=== PATIENT | female | born 1960 | race Caucasian/White ===

== ENCOUNTER → 2016-11-07 | Outpatient (CLI) | payer OTHER ==
[~2016-11-07] MED LIST: ACHD5005 PO; AMIT25TA9 PO; BACL10TA PO; CHLS4PK PO; CIPR-225 PO; CIPR500T78 PO; CLIN300C3 PO; CPR500T PO; CRS350T PO; CYCL10TA9 PO; DICL1TAB27 PO; DICY10CA26 PO; FRSM40T PO; GBPN300C PO; GLPZ10TCR PO; HYDR-2890 PO; HYDR-2997 PO; HYDR-34 PO; HYDR-3583 PO; HYDR-3812 PO; HYDR-3820 PO; HYDR-623 PO; HYDR-707 PO; HYDR118S10 PO; HYDR1CAP2 PO; HYDR1TAB PO; HYOS0.1217 PO; INSU100I5 SQ; LEVO250T33 PO; LEVO500T2 PO; LEVO500T69 PO; LEVO750T39 PO; LISI20TA2 PO; MEDR2.5T PO; METR500T PO; MUPI15CR11 TP; NAPR-243 PO; NITR-65 PO; ORPH100T PO; PHEN-639 PO; PHEN200T27 PO; PNT40TEC PO; POTA10CA16 PO; PROVERA; SCR1T1 PO; TRM50T PO; [UNRECOGNIZED DRUG - OTHER]
[2016-11-07 07:20] LABS: MEAN PLATELET VOLUME 9.4 FL (7.4-10.4); RED BLOOD COUNT 4.9 10^6/uL (4.35-5.85); RED CELL DISTRIBUTION WIDTH 13.4 % (10.0-14.5); WHITE BLOOD COUNT 9.7 10^3/uL (4.3-11.0)
[2016-11-07 07:48] LABS: ALANINE AMINOTRANSFERASE 14 U/L (0-55); ALBUMIN 3.9 G/DL (3.2-4.5); ANION GAP 10 MMOL/L (5-14); ASPARTATE AMINO TRANSFERASE 13 U/L (5-34); BILIRUBIN,TOTAL 0.6 MG/DL (0.1-1.0); BLOOD UREA NITROGEN 23 MG/DL (7-18); BUN/CREATININE RATIO 27; CALCIUM 8.9 MG/DL (8.5-10.1); CARBON DIOXIDE 20 MMOL/L (21-32); CHLORIDE 104 MMOL/L (98-107); CHOLESTEROL 204 MG/DL (< 200); CREATININE SERUM 0.84 MG/DL (0.60-1.30); DIRECT LDL 112 MG/DL (1-129); GFR ESTIMATED > 60; GLUCOSE 143 MG/DL (70-105); POTASSIUM 3.9 MMOL/L (3.6-5.0); SODIUM 134 MMOL/L (135-145); TOTAL PROTEIN 6.9 G/DL (6.4-8.2); TRIGLYCERIDES 341 MG/DL (<150); VLDL CHOLESTEROL 68 MG/DL (5-40)
[2016-11-07 07:53] LABS: TROPONIN I < 0.30 NG/ML (<0.30)
== END ==
LOC: LAB 07:04
PROVIDERS: ATTEND Family Medicine
DX: Z00.00 Encounter for general adult medical examination without abnormal findings (principal); M25.512 Pain in left shoulder
CPT/HCPCS: 36415; 80053; 80061; 83036; 84484; 85027

== ENCOUNTER 2016-11-17 11:14 | Observation (INO) | payer OTHER ==
[~2016-11-17] VITALS: Ht 160 cm; Wt 111.1 kg
[2016-11-17] MEDS ORDERED: ASPIRIN 81 MG CHEW (CHILDREN'S ASA) ONE (11:30)
[2016-11-17] MEDS ORDERED: ASPI-999 PO (11:34)
[2016-11-17 12:11] LABS: BASOPHILS # (AUTO) 0.1 10^3/uL (0.0-0.1); BASOPHILS % (AUTO) 1 % (0-10); EOSINOPHILS # (AUTO) 0.2 10^3/uL (0.0-0.3); EOSINOPHILS % (AUTO) 2 % (0-10); LYMPHOCYTES # (AUTO) 3.2 X 10^3 (1.0-4.0); LYMPHOCYTES % (AUTO) 21 % (12-44); MEAN CORPUSCULAR HEMOGLOBIN 30 PG (25-34); MEAN CORPUSCULAR HGB CONC 35 G/DL (32-36); MEAN CORPUSCULAR VOLUME 86 FL (80-99); MEAN PLATELET VOLUME 9.6 FL (7.4-10.4); MONOCYTES # (AUTO) 0.6 X 10^3 (0.0-1.0); MONOCYTES % (AUTO) 4 % (0-12); NEUTROPHILS # (AUTO) 10.7 X 10^3 (1.8-7.8); NEUTROPHILS % (AUTO) 73 % (42-75); PLATELET COUNT 369 10^3/uL (130-400); RED BLOOD COUNT 5.53 10^6/uL (4.35-5.85); RED CELL DISTRIBUTION WIDTH 13.7 % (10.0-14.5); WHITE BLOOD COUNT 14.8 10^3/uL (4.3-11.0)
[2016-11-17] MEDS ORDERED: ASPIRIN 81 MG CHEW (CHILDREN'S ASA) PO ONE (12:15)
--- NOTE | 2016-11-17 12:15 | ED Chest Pain ---
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 Pt also c/o SOA and nausea that started when pain got worse today. Nursing Sepsis Screen: No Definite Risk Source: patient, family Exam Limitations: no limitations History of Present Illness Time seen by provider: 12:12 Initial Comments This 56-year-old white female presents with a two-week history of pressure type chest pain that became much worse today precipitating her presentation to the emergency department. The patient's primary care physician, Dr. Sanderson, has been following the patient for this chest pain and has had unremarkable laboratory evaluation done within the last few days. The patient has had similar chest pain in 2014 in [place] for which she was evaluated and hospitalized. There is no definitive diagnosis forthcoming from that admission. The patient has experienced associated nausea and diarrhea today. Past medical history of significance includes diabetes and hypertension. The patient is a smoker. The patient states that the pain as moderately severe, sharp in nature, and located in the left anterior chest and radiates in the left neck. Allergies and Home Medications Allergies Coded Allergies: tetracycline (Verified Allergy, Intermediate, 01/16/15) Penicillins (Verified Allergy, Unknown, 01/16/15) cefaclor (Verified Allergy, Unknown, 01/16/15) sulfamethoxazole (Verified Allergy, Unknown, 01/16/15) trimethoprim (Verified Allergy, Unknown, 01/16/15) cyclobenzaprine HCl (Verified Adverse Reaction, Unknown, 01/16/15) causes pt to be very agitated Home Medications Aspirin 81 Mg Tab.chew, 81 MG PO DAILY, (Reported) Insulin Determir 100 Unit/1 Ml Insuln.pen, 42 UNIT SQ Q12H, Ref 0 (Reported) Lisinopril 20 Mg Tablet, 40 MG PO daily, (Reported) Tramadol Hcl 50 Mg Tab, 50 MG PO TID, (Reported) Review of Systems Constitutional: No chills EENTM: No Blurred Vision Respiratory: Denies Cough Cardiovascular: See HPI, Chest Pain, Denies Palpitations, Denies Syncope Gastrointestinal: Denies Abdominal Pain, Diarrhea, Nausea Genitourinary: Denies Burning Musculoskeletal: No back pain Skin: No change in color, No rash Psychiatric/Neurological: No Symptoms Reported Endocrine: No Symptoms Reported Hematologic/Lymphatic: No Symptoms Reported Past Uzrrief-Vxlzpm-Ofdyee Hx Patient Social History Alcohol Use: Denies Use Recreational Drug Use: No Smoking Status: Current Everyday Smoker Type Used: Cigarettes Former Smoker/When Quit: Jan 02, 2013 Recent Foreign Travel: No Contact w/Someone Who Travel: No Recent Infectious Disease Expo: No Recent Hopitalizations: No Immunizations Up To Date Tetanus Booster (TDap): Unknown Seasonal Allergies Seasonal Allergies: No Surgeries HX Surgeries: Yes (EGD/COLONOSCOPY, UMBILICAL HERNIA, CARPAL TUNNEL) Surgeries: Abdominal, Section, Gallbladder, Orthopedic Respiratory Hx Respiratory Disorders: No Cardiovascular Hx Cardiac Disorders: Yes Cardiac Disorders: High Cholesterol, Hypertension Neurological Hx Neurological Disorders: Yes Neurological Disorders: Neuropathy Reproductive System Hx Reproductive Disorders: No PHARMACY ANCILLARY History: Menopausal Genitourinary Hx Genitourinary Disorders: Yes Genitourinary Disorders: Kidney Stones, UTI-Chronic Gastrointestinal Hx Gastrointestinal Disorders: Yes (CHRONIC ABDOMINAL PAIN) Gastrointestinal Disorders: Gastroesophageal Reflux, Gastrointestinal Bleed, Pancreatitis, Ulcer Musculoskeletal Hx Musculoskeletal Disorders: Yes (CHRONIC GENERALIZED PAIN, FREQUENT FALLS) Musculoskeletal Disorders: Degenerate Disk Disease, Arthritis, Chronic Back Pain Endocrine Hx Endocrine Disorders: Yes Endocrine Disorders: Diabetes, Insulin dep HEENT HX ENT Disorders: No Cancer Hx Cancer: No Psychosocial Hx Psychiatric Problems: Yes Behavioral Health Disorders: Depression Integumentary HX Skin/Integumentary Disorder: Yes (DIABETIC FOOT ULCERS/CELLULITIS) Blood Transfusions Hx Blood Disorders: No Adverse Reaction to a Blood Tr: No Reviewed Nursing Assessment Reviewed/Agree w Nursing PMH: Yes Family Medical History Significant Family History: No Pertinent Family Hx Family Medial History: Cardiovascular disease 19 FATHER Colon cancer 19 FATHER Gastroenteritis Kidney disease G8 SISTER (kidney cancer) Neoplasm G8 SISTER (ovarian cancer) Physical Exam Vital Signs Vital Sign - Last 12Hours 11/17/16 11/17/16 11:20 11:28 Temp 97.2 Pulse 100 Resp 18 B/P (MAP) 180/116 Pulse Ox 98 O2 Delivery Room Air Capillary Refill : Less Than 3 Seconds General Appearance: WD/WN, Mild Distress HEENT: Normal ENT Inspection Neck: Normal Inspection Respiratory: Lungs Clear Cardiovascular: Regular Rate, Rhythm, No Murmur Gastrointestinal: Normal Bowel Sounds, Non Tender, Soft Extremity: Normal Inspection, Normal Range of Motion Neurologic/Psychiatric: Oriented x3, No Motor/Sensory Deficits, Normal Mood/ Affect, customer counter associate II-XII Norm as Tested Skin: Normal Color, Warm/Dry Progress/Results/Core Measures Results/Orders Lab Results Laboratory Tests Test 11/17/16 11:42 11/17/16 14:00 11/17/16 15:05 Range/Units White Blood Count 14.8 H 4.3-11.0 10^3/uL Red Blood Count 5.53 4.35-5.85 10^6/uL Hemoglobin 16.4 H 11.5-16.0 G/DL Hematocrit 47 35-52 % Mean Corpuscular Volume 86 80-99 FL Mean Corpuscular Hemoglobin 30 25-34 PG Mean Corpuscular Hemoglobin Concent 35 32-36 G/DL Red Cell Distribution Width 13.7 10.0-14.5 % Platelet Count 369 130-400 10^3/uL Mean Platelet Volume 9.6 7.4-10.4 FL Neutrophils (%) (Auto) 73 42-75 % Lymphocytes (%) (Auto) 21 12-44 % Monocytes (%) (Auto) 4 0-12 % Eosinophils (%) (Auto) 2 0-10 % Basophils (%) (Auto) 1 0-10 % Neutrophils # (Auto) 10.7 H 1.8-7.8 X 10^3 Lymphocytes # (Auto) 3.2 1.0-4.0 X 10^3 Monocytes # (Auto) 0.6 0.0-1.0 X 10^3 Eosinophils # (Auto) 0.2 0.0-0.3 10^3/uL Basophils # (Auto) 0.1 0.0-0.1 10^3/uL Neutrophils % (Manual) 73 % Lymphocytes % (Manual) 21 % Monocytes % (Manual) 4 % Eosinophils % (Manual) 1 % Basophils % (Manual) 0 % Band Neutrophils 1 % Blood Morphology Comment NORMAL Prothrombin Time 11.4 L 12.2-14.7 SEC INR Comment 0.9 0.8-1.4 Activated Partial Thromboplast Time 31 24-35 SEC Sodium Level 140 135-145 MMOL/L Potassium Level 4.0 3.6-5.0 MMOL/L Chloride Level 103 98-107 MMOL/L Carbon Dioxide Level 21 21-32 MMOL/L Anion Gap 16 H 5-14 MMOL/L Blood Urea Nitrogen 20 H 7-18 MG/DL Creatinine 1.04 0.60-1.30 MG/DL Estimat Glomerular Filtration Rate 55 BUN/Creatinine Ratio 19 0-20 Glucose Level 147 H 70-105 MG/DL Calcium Level 9.5 8.5-10.1 MG/DL Magnesium Level 1.7 L 1.8-2.4 MG/DL Total Bilirubin 0.6 0.1-1.0 MG/DL Aspartate Amino Transf (AST/SGOT) 19 5-34 U/L Alanine Aminotransferase (ALT/SGPT) 14 0-55 U/L Alkaline Phosphatase 95 40-136 U/L Myoglobin 36.6 10.0-92.0 NG/ML Troponin I < 0.30 <0.30 NG/ML B-Type Natriuretic Peptide < 10.0 <100.0 PG/ML Total Protein 8.1 6.4-8.2 GM/DL Albumin 4.4 3.2-4.5 GM/DL Glucometer 125 H 70-110 MG/DL My Orders Orders - DAVID, MARI Nichole MD Aspirin Chewable Tablet (Baby Aspirin Ch (11/17/16 11:30) Cbc With Automated Diff (11/17/16 12:02) Magnesium (11/17/16 12:02) Chest 1 View, Ap/Pa Only (11/17/16 12:02) Ekg Tracing (11/17/16 12:02) Cardiac Profile 1 (11/17/16 12:02) Comprehensive Metabolic Panel (11/17/16 12:02) Myoglobin Serum (11/17/16 12:02) Protime With Inr (11/17/16 12:02) Partial Thromboplastin Time (11/17/16 12:02) O2 (11/17/16 12:02) Monitor-Rhythm Ecg Trace Only (11/17/16 12:02) Lipid Panel (11/18/16 06:00) Aspirin Chewable Tablet (Baby Aspirin Ch (11/17/16 12:15) Rx-Nitroglycerin Sl Tabs (Rx-Nitrostat S (11/17/16 12:15) Saline Lock/Iv-Start (11/17/16 12:02) BNP (11/17/16 12:02) Manual Differential (11/17/16 11:42) Diazepam Injection (Valium Injection) (11/17/16 13:30) Fentanyl Injection (Sublimaze Injection (11/17/16 13:30) Troponin I (11/17/16 13:28) Cbc With Automated Diff (11/17/16 13:28) Comprehensive Metabolic Panel (11/17/16 13:28) Ondansetron Injection (Zofran Injectio (11/17/16 13:45) Ondansetron Injection (Zofran Injectio (11/17/16 13:38) Pantoprazole Injection (Protonix Injecti (11/17/16 15:15) Fentanyl Injection (Sublimaze Injection (11/17/16 15:15) Medications Given in ED Current Medications Medications Dose Ordered Sig/Eva Route Start Time Stop Time Status Last Admin Dose Admin Aspirin 81 mg STK-MED ONCE .ROUTE 11/17/16 11:30 11/17/16 11:35 DC 11/17/16 11:40 81 MG Diazepam 5 mg ONCE ONCE IV 11/17/16 13:30 11/17/16 13:31 DC 11/17/16 13:47 5 MG Fentanyl Citrate 50 mcg ONCE ONCE IVP 11/17/16 13:30 11/17/16 13:31 DC 11/17/16 13:47 50 MCG Nitroglycerin 0.4 mg PRN PRN SL 11/17/16 12:15 11/17/16 15:06 0.4 MG Vital Signs/I&O Vital Sign - Last 12Hours 11/17/16 11/17/16 11/17/16 11:20 11:20 11:28 Temp 97.2 Pulse 100 Resp 18 B/P (MAP) 180/116 Pulse Ox 98 95 O2 Delivery Room Air Room Air Room Air Blood Pressure Mean: 137 Progress Note : Time: 15:03 Progress Note Pt's labs and EKG were unremarkable. There was no improvement in the patient's pain w nitro SL. Pt's pain was sig improved w Fentanyl and Valium. Patient and family wanted admission. Discussed w Drs. Sanderson and Sudhir. Pt admitted. Departure Communication Time/Spoke to Admitting Phy: 15:[address] Sanderson. Time/Spoke to Consulting Physi: 15:09 Communication/Consulting Dr. Peguero. Impression Impression: Primary Impression: Chest pain Qualified Codes: R07.9 - Chest pain, unspecified Disposition: ADMITTED INPATIENT Condition: Improved Decision to Admit Reason: Admit from ER (General) Decision to Admit/Date: Nov 17, 2016 Time/Decision to Admit Time: 15:10 Departure-Patient Inst. Referrals: MOSES SANDERSON DO (PCP/Family) Primary Care Physician MARI HERNANDEZ MD Nov 17, 2016 12:15
[2016-11-17 12:23] LABS: INR 0.9 (0.8-1.4); PROTHROMBIN TIME PATIENT 11.4 SEC (12.2-14.7)
--- NOTE | 2016-11-17 12:28 | Diagnostic Imaging Report ---
INDICATION: Intermittent chest pain for three weeks. Comparison with 01/13/2016. FINDINGS: Portable chest shows the lungs to be well-aerated and clear. The heart is not enlarged. There is no evidence of pulmonary edema. There is no hilar adenopathy. No pneumothorax or pleural effusion. IMPRESSION: Normal portable chest. Dictated by: Dictated on workstation # [id number]
[2016-11-17 12:33] LABS: ALANINE AMINOTRANSFERASE 14 U/L (0-55); ALBUMIN 4.4 GM/DL (3.2-4.5); ANION GAP 16 MMOL/L (5-14); ASPARTATE AMINO TRANSFERASE 19 U/L (5-34); BILIRUBIN,TOTAL 0.6 MG/DL (0.1-1.0); BLOOD UREA NITROGEN 20 MG/DL (7-18); BUN/CREATININE RATIO 19 (0-20); CALCIUM 9.5 MG/DL (8.5-10.1); CARBON DIOXIDE 21 MMOL/L (21-32); CHLORIDE 103 MMOL/L (98-107); CREATININE SERUM 1.04 MG/DL (0.60-1.30); GFR ESTIMATED 55; GLUCOSE 147 MG/DL (70-105); HEMOLYSIS 10 (-100-29); ICTERUS 0.4 (-100-1.9); LIPEMIA 6 (-100-49); MAGNESIUM 1.7 MG/DL (1.8-2.4); SODIUM 140 MMOL/L (135-145); TOTAL PROTEIN 8.1 GM/DL (6.4-8.2)
[2016-11-17 12:39] LABS: MYOGLOBIN SERUM 36.6 NG/ML (10.0-92.0)
[2016-11-17 12:48] LABS: BAND NEUTROPHILS 1 %; BASOPHILS % (MANUAL) 0 %; EOSINOPHILS % (MANUAL) 1 %; LYMPHOCYTES % (MANUAL) 21 %; NEUTROPHILS % (MANUAL) 73 %
[2016-11-17] MEDS: RX-NITROGLYCERIN 0.4 MG TAB BTL 25'S SL PRN ×2 (13:11→15:06)
[2016-11-17] MEDS ORDERED: fentaNYL INJECTION 100 MCG/2 ML AMP IVP ONE ×2 (13:30→15:15)
[2016-11-17] MEDS ORDERED: DIAZEPAM INJ 10 MG/2 ML (VALIUM) SYR IV ONE (13:30)
[2016-11-17] MEDS ORDERED: ONDANSETRON 4 MG/2 ML (SDV) Z0FRAN ONE (13:38)
[2016-11-17] MEDS ORDERED: ONDANSETRON 4 MG/2 ML (SDV) Z0FRAN IVP ONE (13:45)
[2016-11-17] MEDS ORDERED: PANTOPRAZOLE 40 MG/10 ML (PROTONIX) VIAL IV ONE (15:15)
[2016-11-17 15:31] LABS: ALANINE AMINOTRANSFERASE 14 U/L (0-55); ALBUMIN 4.2 GM/DL (3.2-4.5); ANION GAP 16 MMOL/L (5-14); ASPARTATE AMINO TRANSFERASE 16 U/L (5-34); BILIRUBIN,TOTAL 0.7 MG/DL (0.1-1.0); BLOOD UREA NITROGEN 21 MG/DL (7-18); BUN/CREATININE RATIO 20 (0-20); CARBON DIOXIDE 21 MMOL/L (21-32); CHLORIDE 104 MMOL/L (98-107); CREATININE SERUM 1.04 MG/DL (0.60-1.30); GFR ESTIMATED 55; GLUCOSE 123 MG/DL (70-105); HEMOLYSIS 15 (-100-29); ICTERUS 0.5 (-100-1.9); LIPEMIA 1 (-100-49); POTASSIUM 3.9 MMOL/L (3.6-5.0); SODIUM 141 MMOL/L (135-145); TOTAL PROTEIN 7.5 GM/DL (6.4-8.2)
[2016-11-17 15:37] LABS: TROPONIN I < 0.30 NG/ML (<0.30)
[2016-11-17 16:10] VITALS: BP 123/63
[2016-11-17] MEDS ORDERED: INSU100I29 SQ (16:17)
[2016-11-17] MEDS ORDERED: ACETAMINOPHEN 325 MG TABLET/CAPLET (TYLENOL) PO PRN (17:00)
[2016-11-17] MEDS ORDERED: NITROGLYCERIN SUBLINGUAL 0.4 MG TAB (NITROSTAT) SL PRN (17:00)
[2016-11-17] MEDS ORDERED: CATHETER FLUSH 10 ML SYR IV PRN (17:00)
[2016-11-17] MEDS ORDERED: ONDANSETRON 4 MG/2 ML (SDV) Z0FRAN IV PRN (17:00)
[2016-11-17] MEDS ORDERED: NS IV 1000 ML 1,000 ML IV SCH (17:00)
[2016-11-17] MEDS: fentaNYL INJECTION 100 MCG/2 ML AMP IV PRN ×3 (17:02→22:27)
[2016-11-17 20:02] VITALS: BP 126/62
[2016-11-17] MEDS: inSUlin (REGULAR) HUMAN 1 UNIT/0.01 ML (CHARGE PER UNIT) SC SCH (21:11)
[2016-11-18] VITALS (7 sets, daily range): BP systolic 109–141; BP diastolic 52–72
[2016-11-18] MEDS: fentaNYL INJECTION 100 MCG/2 ML AMP IV PRN ×10 (01:36→22:28)
[2016-11-18 05:24] LABS: BASOPHILS # (AUTO) 0.1 10^3/uL (0.0-0.1); BASOPHILS % (AUTO) 1 % (0-10); EOSINOPHILS # (AUTO) 0.4 10^3/uL (0.0-0.3); EOSINOPHILS % (AUTO) 3 % (0-10); LYMPHOCYTES # (AUTO) 3.3 X 10^3 (1.0-4.0); LYMPHOCYTES % (AUTO) 26 % (12-44); MEAN CORPUSCULAR HEMOGLOBIN 29 PG (25-34); MEAN CORPUSCULAR HGB CONC 34 G/DL (32-36); MEAN CORPUSCULAR VOLUME 88 FL (80-99); MEAN PLATELET VOLUME 9.7 FL (7.4-10.4); MONOCYTES # (AUTO) 0.6 X 10^3 (0.0-1.0); MONOCYTES % (AUTO) 4 % (0-12); NEUTROPHILS # (AUTO) 8.2 X 10^3 (1.8-7.8); NEUTROPHILS % (AUTO) 66 % (42-75); PLATELET COUNT 269 10^3/uL (130-400); RED BLOOD COUNT 4.74 10^6/uL (4.35-5.85); RED CELL DISTRIBUTION WIDTH 13.4 % (10.0-14.5); WHITE BLOOD COUNT 12.5 10^3/uL (4.3-11.0)
[2016-11-18 05:53] LABS: ALANINE AMINOTRANSFERASE 12 U/L (0-55); ALBUMIN 3.7 GM/DL (3.2-4.5); ANION GAP 12 MMOL/L (5-14); ASPARTATE AMINO TRANSFERASE 13 U/L (5-34); BILIRUBIN,TOTAL 1.1 MG/DL (0.1-1.0); BLOOD UREA NITROGEN 20 MG/DL (7-18); BUN/CREATININE RATIO 21 (0-20); CALCIUM 8.1 MG/DL (8.5-10.1); CARBON DIOXIDE 19 MMOL/L (21-32); CHLORIDE 106 MMOL/L (98-107); CREATININE SERUM 0.94 MG/DL (0.60-1.30); GFR ESTIMATED > 60; GLUCOSE 136 MG/DL (70-105); HEMOLYSIS 8 (-100-29); LIPASE 25 U/L (8-78); LIPEMIA 4 (-100-49); POTASSIUM 3.6 MMOL/L (3.6-5.0); SODIUM 137 MMOL/L (135-145); TOTAL PROTEIN 6.3 GM/DL (6.4-8.2)
[2016-11-18 05:54] LABS: CHOLESTEROL 154 MG/DL (< 200); DIRECT LDL 81 MG/DL (1-129); LIPEMIA 2 (-100-49); TRIGLYCERIDES 364 MG/DL (<150); VLDL CHOLESTEROL 73 MG/DL (5-40)
[2016-11-18] MEDS: inSUlin (REGULAR) HUMAN 1 UNIT/0.01 ML (CHARGE PER UNIT) SC SCH ×4 (05:59→21:08)
[2016-11-18] MEDS ORDERED: MAGNESIUM 1 GM/100 ML IVPB 100 ML IV ONE (08:45)
--- NOTE | 2016-11-18 08:59 | History & Physicial ---
History of Present Illness History of Present Illness Reason for visit/HPI chest pain Date of Admission Nov 17, 2016 at 14:30 Time Seen by Provider: 08:45 I consulted on this patient on 11/18/16 08:54 Attending Physician Giancarlo Sanderson DO Admitting Physician Giancarlo Sanderson DO Consult patient came to the emergency room due to chest pain. Patient states last hour and a half pain got worse. Pain went up into the left shoulder and radiated to the neck and behind left ear. Past history in 2014 patient was in [facility] for the same thing and had stress test which proved to be negative. Pain is constant. Pain not helped by nitroglycerin. Allergies and Home Medications Allergies Coded Allergies: tetracycline (Verified Allergy, Intermediate, 01/16/15) Penicillins (Verified Allergy, Unknown, 01/16/15) cefaclor (Verified Allergy, Unknown, 01/16/15) sulfamethoxazole (Verified Allergy, Unknown, 01/16/15) trimethoprim (Verified Allergy, Unknown, 01/16/15) cyclobenzaprine HCl (Verified Adverse Reaction, Unknown, 01/16/15) causes pt to be very agitated Home Medications Aspirin 81 Mg Tab.chew, 81 MG PO DAILY, (Reported) Insulin Detemir 100 Unit/1 Ml Insuln.pen, 48 UNITS SQ BID, (Reported) Lisinopril 20 Mg Tablet, 40 MG PO DAILY, (Reported) Tramadol Hcl 50 Mg Tab, 100 MG PO TID, (Reported) TAKES 2 (50 MG) TABLETS Past Svourse-Qjqfym-Jaebmx Hx Patient Social History Marrital Status: Employed/Student: unemployed Alcohol Use: Denies Use Recreational Drug Use: No Smoking Status: Current Everyday Smoker Former smoker/When Quit: Jan 02, 2013 Type Used: Cigarettes Recent Foreign Travel: No Contact w/other who traveled: No Recent Hopitalizations: No Recent Infectious Disease Expo: No Immunizations Up To Date Tetanus Booster (TDap): Unknown Seasonal Allergies Seasonal Allergies: No Surgeries HX Surgeries: Yes (EGD/COLONOSCOPY, UMBILICAL HERNIA, CARPAL TUNNEL) Surgeries: Abdominal, Section, Gallbladder, Orthopedic Respiratory Hx Respiratory Disorders: No Cardiovascular Hx Cardiovascular Disorders: Yes Cardiac Disorders: High Cholesterol, Hypertension Neurological Hx Neurological Disorders: Yes Neurological Disorders: Neuropathy Reproductive System Hx Reproductive Disorders: No Genitourinary Hx Genitourinary Disorders: Yes Genitourinary Disorders: Kidney Stones, UTI-Chronic Gastrointestinal Hx Gastrointestinal Disorders: Yes (CHRONIC ABDOMINAL PAIN) Gastrointestinal Disorders: Gastroesophageal Reflux, Gastrointestinal Bleed, Pancreatitis, Ulcer Musculoskeletal Hx Musculoskeletal Disorders: Yes (CHRONIC GENERALIZED PAIN, FREQUENT FALLS) Musculoskeletal Disorders: Degenerate Disk Disease, Arthritis, Chronic Back Pain Endocrine Hx Endocrine Disorders: Yes Endocrine Disorders: Diabetes, Insulin dep HEENT HX ENT Disorders: No Cancer Hx Cancer: No Psychosocial Hx Psychiatric Problems: Yes Behavioral Health Disorders: Depression Integumentary HX Skin/Integumentary Disorder: Yes (DIABETIC FOOT ULCERS/CELLULITIS) Blood Transfusions Hx Blood Disorders: No Adverse Reaction to a Blood Tr: No Reviewed Nursing Assessment Reviewed/Agree w Nursing PMH: Yes Family Medical History Significant Family History: No Pertinent Family Hx Family Hx: Cardiovascular disease 19 FATHER Colon cancer 19 FATHER Gastroenteritis Kidney disease G8 SISTER (kidney cancer) Neoplasm G8 SISTER (ovarian cancer) Constitutional: no symptoms reported EENTM: no symptoms reported Respiratory: no symptoms reported, other (Pain radiating to left shoulder and neck left side) Cardiovascular: chest pain Gastrointestinal: no symptoms reported Genitourinary: no symptoms reported Physical Exam Vital Signs Vital Sign - Last 12Hours 11/17/16 11/17/16 11/17/16 11:20 11:28 20:59 Temp 97.2 Pulse 100 Resp 18 B/P (MAP) 180/116 Pulse Ox 98 O2 Delivery Room Air O2 Flow Rate 2.00 Capillary Refill : Less Than 3 SecondsLess Than 3 Seconds General Appearance: No Apparent Distress, WD/WN, Obese Eyes: Bilateral Eye Normal Inspection HEENT: Normal ENT Inspection Neck: Full Range of Motion, Normal Inspection Respiratory: Chest Non Tender, Lungs Clear, Normal Breath Sounds, No Accessory Muscle Use, No Respiratory Distress Cardiovascular: Regular Rate, Rhythm, No Murmur Gastrointestinal: Non Tender, Soft Assessment/Plan Assessment and Plan chest pain. Diabetes. Hypertension. tobacco usage. Hyperlipidemia Problems: Clinical Quality Measures AMI/AHF: ASA po Prior to arrival: No DVT/VTE Risk/Contraindication: Risk Factor Score Per Nursin RFS Level Per Nursing on Admit: 3=High GIANCARLO SANDERSON DO Nov 18, 2016 08:59
[2016-11-18] MEDS: PANTOPRAZOLE 40 MG/10 ML (PROTONIX) VIAL IV SCH (09:11)
[2016-11-18] MEDS: ENOXAPARIN 40 MG/0.4 ML (LOVENOX) SYR SC SCH (09:12)
[2016-11-18] MEDS: lisINopril 20 MG (ZESTRIL) TAB PO SCH (09:13)
[2016-11-18] MEDS: ASPIRIN 325 MG (5 GR) TABLET PO SCH (09:13)
[2016-11-18] MEDS: CATHETER FLUSH 10 ML SYR IV SCH ×2 (09:25→22:29)
--- NOTE | 2016-11-18 15:43 | Consultation-Cardiology ---
HPI-Cardiology Cardiology Consultation: Date of Consultation 11/18/16 Date of Admission 11/17/16 Attending Physician Giancarlo Marino DO Admitting Physician Giancarlo Marino DO Consulting Physician MAIRA RICHTER MD, MA, FACP, FACC, FSCAI, CCDS Physician requesting consult: Dr Marino HPI: Chief Complaint: Chest discomfort 56 yo woman with multiple cor risk factors who has been having intermittent chest discomfort for the last 3 weeks. This was much worse and constant yesterday; she came to the ER and was hospitalized. The chest discomfort has been occurring on a daily basis. It may or may not be related to exertion. It has lasted from a few min to several days. It has varied from mod to severe. It has varied from sharp to dull. It is in the upper midsternal and L parasternal area. It has radiated to L neck and L shoulder. It has not been associated with palp or syncope. It has not been relieved with nitro. There are no specific aggravating or relieving factors. She has been experiencing more exertional shortness of breath. She has a chronic h/o exertional shortness of breath. She denies leg swelling or palp or syncope. She is physically fairly active Review of Systems-Cardiology Review of Systems Date Seen by Provider: Nov 18, 2016 Time Seen by Provider: 15:10 Constitutional: malaise, tiredness, No weight loss, No weight gain Eyes: No vision change Ears/Nose/Throat: No ear discharge, No nasal drainage, No recent hearing loss Respiratory: As described under HPI Cardiovascular: As described under HPI Gastrointestinal: No constipation, No diarrhea, No nausea, No vomiting Genitourinary: No dysuria, No hematuria Musculoskeletal: back pain (chronic) Skin: No rash, No ulcerations Psychiatric/Neurological: No focal weakness, No seizure, No syncope Hematologic: No bleeding abnormalities PSP-Jeqrfx-Urzkvn Hx Patient Social History Marrital Status: Employed/Student: unemployed Alcohol Use: Denies Use Recreational Drug Use: No Smoking Status: Current Everyday Smoker Former smoker/When Quit: Jan 02, 2013 Type Used: Cigarettes Recent Foreign Travel: No Recent Infectious Disease Expo: No Hospitalization with Isolation: Denies Immunizations Up To Date Tetanus Booster (TDap): Unknown Past Medical History PMH As described under Assessment. Family Medical History Family Medical History: She reports fam h/o early CAD (father) Family History: Cardiovascular disease 19 FATHER Colon cancer 19 FATHER Gastroenteritis Kidney disease G8 SISTER (kidney cancer) Neoplasm G8 SISTER (ovarian cancer) Allergies and Home Medications Allergies Coded Allergies: tetracycline (Verified Allergy, Intermediate, 01/16/15) Penicillins (Verified Allergy, Unknown, 01/16/15) cefaclor (Verified Allergy, Unknown, 01/16/15) sulfamethoxazole (Verified Allergy, Unknown, 01/16/15) trimethoprim (Verified Allergy, Unknown, 01/16/15) cyclobenzaprine HCl (Verified Adverse Reaction, Unknown, 01/16/15) causes pt to be very agitated Home Medications Aspirin 81 Mg Tab.chew, 81 MG PO DAILY, (Reported) Insulin Detemir 100 Unit/1 Ml Insuln.pen, 48 UNITS SQ BID, (Reported) Lisinopril 20 Mg Tablet, 40 MG PO DAILY, (Reported) Tramadol Hcl 50 Mg Tab, 100 MG PO TID, (Reported) TAKES 2 (50 MG) TABLETS Physical Exam-Cardiology Physical Exam Vital Signs/I&O Vital Sign - Last 12Hours 11/18/16 11/18/16 11/18/16 11/18/16 03:45 07:01 08:15 11:45 Temp 97.2 96.0 97.1 Pulse 67 71 75 74 Resp 24 18 20 B/P (MAP) 141/65 117/52 119/65 Pulse Ox 93 97 97 O2 Delivery Room Air Room Air Room Air 11/18/16 13:01 Pulse 76 Intake and Output 11/18/16 00:00 Intake Total 910 ml Output Total 200 ml Balance 710 ml Capillary Refill : Less Than 3 SecondsLess Than 3 Seconds Constitutional: AAO x 3, well-developed, well-nourished HEENT: EOMI, No xanthelasmas are seen Neck: carotid pulses are 2 + bilaterally, with good upstrokes Respiratory: No accessory muscle use, lungs clear to percussion, lungs clear to auscultation Cardiovascular: regular rate-rhythm, S1 and S2, systolic murmur (faint SISSY at cardiac base) Gastrointestinal: No tender, soft, No guarding, No rebound, audible bowel sounds Extremities: No clubbing, No cyanosis, No significant edema Neurologic/Psychiatric: oriented x 3, grossly intact, power is 5/5 both on sides Skin: No rash on exposed areas, No ulcerations on exposed areas Data Review Labs Laboratory Tests 11/17/16 21:09: Glucometer 172H 11/17/16 21:39: Troponin I < 0.30 11/18/16 04:44: White Blood Count 12.5H, Red Blood Count 4.74, Hemoglobin 13.9, Hematocrit 42, Mean Corpuscular Volume 88, Mean Corpuscular Hemoglobin 29, Mean Corpuscular Hemoglobin Concent 34, Red Cell Distribution Width 13.4, Platelet Count 269, Mean Platelet Volume 9.7, Neutrophils (%) (Auto) 66, Lymphocytes (%) (Auto) 26, Monocytes (%) (Auto) 4, Eosinophils (%) (Auto) 3, Basophils (%) (Auto) 1, Neutrophils # (Auto) 8.2H, Lymphocytes # (Auto) 3.3, Monocytes # (Auto) 0.6, Eosinophils # (Auto) 0.4H, Basophils # (Auto) 0.1, Sodium Level 137, Potassium Level 3.6, Chloride Level 106, Carbon Dioxide Level 19L, Anion Gap 12, Blood Urea Nitrogen 20H, Creatinine 0.94, Estimat Glomerular Filtration Rate > 60, BUN /Creatinine Ratio 21H, Glucose Level 136H, Hemoglobin A1c 6.9H, Calcium Level 8.1L, Total Bilirubin 1.1H, Aspartate Amino Transf (AST/SGOT) 13, Alanine Aminotransferase (ALT/SGPT) 12, Alkaline Phosphatase 93, Total Protein 6.3L, Albumin 3.7, Triglycerides Level 364H, Cholesterol Level 154, LDL Cholesterol Direct 81, VLDL Cholesterol 73H, HDL Cholesterol 32L, Lipase 25 11/18/16 11:20: Glucometer 187H Laboratory Tests 11/17/16 11:42 11/17/16 15:05 11/18/16 04:44 A/P-Cardiology Assessment/Admission Diagnosis Chest discomfort w/o evidence of RI Hypertension Hyperlipidemia DM II Fam h/o early CAD Chronic tobacco use Obesity with BMI approx 43 Discussion and Recomendations * Given multiple risk factors and chest discomfort (some features of which are suggestive of angina and others are not) we recommend a coronary w/u. She states she has had a relatively recent stress test for similar symptoms in [place] that, apparently, did not show much. She is worried that discomfort is from the heart. We think it would be reasonable to proceed with card cath for definitive eval. We discussed in detail the rationale, procedure, risks, benefits, potential complications, and alternatives of card cath and ad hoc cor intervention (if needed). She understands and wishes to proceed. We will schedule for tomorrow * We also recommend echo to eval for structural heart disease * We advised immediate and complete smoking cessation. Other risk factor modification also reviewed * Further recs to be based on above studies Clinical Quality Measures AMI/AHF: ASA po Prior to arrival: No DVT/VTE Risk/Contraindication: Risk Factor Score Per Nursin RFS Level Per Nursing on Admit: 3=High MAIRA RICHTER MD FACP FAC CCDS Nov 18, 2016 15:43
[2016-11-19] MEDS: fentaNYL INJECTION 100 MCG/2 ML AMP IV PRN ×10 (00:23→22:03)
[2016-11-19 04:00] VITALS: BP 113/74
[2016-11-19] MEDS: inSUlin (REGULAR) HUMAN 1 UNIT/0.01 ML (CHARGE PER UNIT) SC SCH ×4 (06:16→22:06)
[2016-11-19] MEDS: CATHETER FLUSH 10 ML SYR IV SCH ×3 (06:16→22:09)
--- NOTE | 2016-11-19 07:34 | Progress Note (SOAP) ---
Subjective Time Seen by Provider: 07:20 Subjective/Events-last exam patient has a little chest discomfort today. Still has pain in his chest going up to the neck and shoulder left side. Patient have coronary angiography at 11 a.m. today. Patient again told to stop smoking. Chest discomfort. Hypertension. HYPERLIPIDEMIA>Diabetes. Chronic tobacco usage. Obesity Objective Exam Vital Signs Date Time Temp Pulse Resp B/P (MAP) Pulse Ox O2 Delivery O2 Flow Rate FiO2 11/19/16 04:00 97.7 70 18 113/74 95 Room Air 11/19/16 01:00 72 11/18/16 23:35 97.8 72 20 109/71 96 Room Air 11/18/16 21:16 Room Air 2.00 11/18/16 19:50 97.6 79 20 117/60 96 Room Air 11/18/16 19:00 76 11/18/16 16:00 97.0 73 20 115/72 98 Room Air 11/18/16 13:01 76 11/18/16 11:45 97.1 74 20 119/65 97 Room Air 11/18/16 08:15 96.0 75 18 117/52 97 Room Air I & O 11/19/16 07:00 Intake Total 3730 ml Output Total 2900 ml Balance 830 ml Capillary Refill : Less Than 3 SecondsLess Than 3 Seconds General Appearance: No Apparent Distress, WD/WN, Obese HEENT: Normal ENT Inspection Neck: Full Range of Motion, Normal Inspection Respiratory: Chest Non Tender, Lungs Clear, Normal Breath Sounds, No Accessory Muscle Use, No Respiratory Distress Cardiovascular: Regular Rate, Rhythm, No Murmur Gastrointestinal: non tender, soft Results Lab Laboratory Tests 11/18/16 11:20: Glucometer 187H 11/18/16 16:00: Glucometer 173H 11/18/16 20:58: Glucometer 181H 11/19/16 05:19: Glucometer 148H Assessment/Plan Assessment/Plan Assess & Plan/Chief Complaint chest discomfort. Hypertension. Hyperlipidemia. Diabetes. Chronic tobacco usage. Obesity.. Patient to have heart catheter this a.m. Clinical Quality Measures AMI/AHF: ASA po Prior to arrival: No DVT/VTE Risk/Contraindication: Risk Factor Score Per Nursin RFS Level Per Nursing on Admit: 3=High MOSES SANDERSON DO Nov 19, 2016 07:34
[2016-11-19 08:19] VITALS: BP 105/58
[2016-11-19] MEDS: PANTOPRAZOLE 40 MG/10 ML (PROTONIX) VIAL IV SCH (08:44)
[2016-11-19] MEDS: ASPIRIN 325 MG (5 GR) TABLET PO SCH (10:03)
[2016-11-19] MEDS: lisINopril 20 MG (ZESTRIL) TAB PO SCH (10:04)
[2016-11-19] MEDS ORDERED: MIDAZOLAM 5 MG/5 ML (VERSED) VIAL ONE (10:10)
[2016-11-19] MEDS ORDERED: HEParin (CATH LAB) 2,000 ML IV ONE (10:11)
[2016-11-19] MEDS ORDERED: NS IV 1000 ML 1,000 ML ONE (10:11)
[2016-11-19] MEDS ORDERED: diphenhydrAMINE 50 MG/ML INJ (BENADRYL) ONE (10:11)
[2016-11-19] MEDS ORDERED: fentaNYL INJECTION 100 MCG/2 ML AMP ONE (10:11)
[2016-11-19] MEDS ORDERED: NS IV 1000 ML 1,000 ML IV SCH (11:00)
[2016-11-19] MEDS: ENOXAPARIN 40 MG/0.4 ML (LOVENOX) SYR SC SCH (11:09)
--- NOTE | 2016-11-19 11:57 | Progress Note-Cardiology ---
Cardiology SOAP Progress Note Subjective: Continues to have chest discomfort as before Has exertional shortness of breath No palp or syncope Objective: I&O/Vital Signs Vital Sign - Last 12Hours 11/19/16 11/19/16 11/19/16 11/19/16 01:00 04:00 07:00 08:19 Temp 97.7 96.1 Pulse 72 70 73 72 Resp 18 18 B/P (MAP) 113/74 105/58 Pulse Ox 95 95 O2 Delivery Room Air Room Air 11/19/16 09:00 Pulse Ox 95 O2 Delivery Room Air Intake and Output 11/19/16 00:00 Intake Total 2630 ml Output Total 1700 ml Balance 930 ml Weight (Pounds): 245 Weight (Ounces): 0.0 Weight (Calculated Kilograms): 111.301436 Constitutional: AAO x 3, well-developed, well-nourished Respiratory: No accessory muscle use, lungs clear to percussion, lungs clear to auscultation Cardiovascular: regular rate-rhythm, S1 and S2, systolic murmur (faint SISSY at cardiac base) Gastrointestional: No tender, soft, No guarding, No rebound, audible bowel sounds Extremities: No clubbing, No cyanosis, No significant edema Neurologic/Psychiatric: oriented x 3, grossly intact, power is 5/5 both on sides Skin: No rash on exposed areas, No ulcerations on exposed areas Results/Procedures: Labs Laboratory Tests 11/18/16 16:00: Glucometer 173H 11/18/16 20:58: Glucometer 181H 11/19/16 05:19: Glucometer 148H Laboratory Tests 11/17/16 15:05 11/18/16 04:44 A/P: Assessment: Chest discomfort, non cardiac Card cath of 11/19/16: no significant CAD, LVEDP 18 mmHg, LVEF 60% Hypertension Hyperlipidemia DM II Fam h/o early CAD Chronic tobacco use Obesity with BMI approx 43 Plan: * Based on card cath of 11/19/16, chest discomfort does not appear to be of card origin * We advised immediate and complete smoking cessation. Other risk factor modification also reviewed * High groin stick at time of card cath. Advise overnight stay to monitor for any post-cath bleed Clinical Quality Measures AMI/AHF: ASA po Prior to arrival: MAIRA Corey MD FACP FACC CCDS Nov 19, 2016 11:57
[2016-11-19] MEDS ORDERED: PATIENT MAY USE OWN MEDS, ALL PO SCH (12:00)
--- NOTE | 2016-11-19 12:30 | CARDIAC CATHETERIZATION ---
DATE OF SERVICE: 11/19/2016 PRIMARY PHYSICIAN: Dr. Marino. HISTORY OF PRESENT ILLNESS: The patient is a 56-year-old lady who has multiple coronary artery disease risk factors and who was hospitalized with chest discomfort suggestive of new onset angina. Cardiac catheterization was carried out after having obtained an informed consent. PROCEDURE: She was brought to the cardiac catheterization laboratory in a fasting state. Right groin was prepared and draped in the usual sterile fashion. Lidocaine, 1%, local was the anesthesia. Due to the patient's body habitus, the arterial access was somewhat difficult. We were first able to access the right femoral vein using the Seldinger technique and placed a wire in it to juana the spot of the vein and we were then able to access the right femoral artery using the Seldinger technique and were able to advance a 5-Rwandan sheath and a subsequent cardiac catheterization. We used a 5-Rwandan JL4 catheter for left coronary angiography and a 5-Rwandan JR4 catheter for a right coronary angiography. A 5-Rwandan JR4 catheter was also used for right heart catheterization and left ventricular angiography. We removed the right femoral vein wire after we had gotten the arterial access. We used a pigtail catheter to carry out aortic root angiography and aortic arch angiography. The catheter was then removed and angiography of the right femoral artery was carried out through the sheath. The site of the sheath insertion was too high for device closure. Manual pressure was used to achieve hemostasis. She tolerated the procedure well. HEMODYNAMICS: Left ventricular end-diastolic pressure following coronary angiography was 18 mmHg. There was no significant pressure gradient on pullback across the aortic valve. Ascending aortic pressure was 121/70 with a mean of 85 mmHg. LEFT VENTRICULAR ANGIOGRAPHY: Left ventricular angiography was carried out in the right anterior oblique projection. Global left ventricular systolic function is normal. No regional wall motion abnormalities are identified. Left ventricular ejection fraction is approximately 60%. AORTIC ROOT ANGIOGRAPHY: Aortic root angiography did not indicate any significant aortic root or ascending aortic aneurysm or dissection. No significant aortic regurgitation is identified AORTIC ARCH ANGIOGRAPHY: Aortic arch angiography did not indicate any significant thoracic aortic aneurysm or dissection. Neck arteries, to the extent seen, do not exhibit significant disease. CORONARY ANGIOGRAPHY: Left main coronary artery is free of significant disease. Left anterior descending artery is free of significant disease. Left circumflex artery is dominant and free of significant disease. Right coronary artery is small and nondominant and free of significant disease. CONCLUSIONS: 1. Angiographically normal coronary arteries. 2. Normal global left ventricular systolic function with ejection fraction approximately 60%. 3. Mild elevation of left ventricular end-diastolic pressure. 4. No significant mitral regurgitation. 5. No evidence of thoracic aortic aneurysm or dissection. DISCUSSION AND RECOMMENDATIONS: Based on results of the study, chest discomfort does not appear to be of cardiac origin. Continuing risk factor modification is advised. She has been advised to quit smoking immediately and completely. Job ID: [id number] DocumentID: [id number] Dictated Date: 11/19/2016 12:12:08 Geological Engineering Teacher Date: 11/19/2016 12:29:19 Dictated By: MAIRA RICHTER MD, MA, FACP, FACC, MTDD
[2016-11-19 13:30] VITALS: BP 105/49
[2016-11-19] MEDS: NS IV 1000 ML 1,000 ML IV SCH ×2 (14:55→18:55)
[2016-11-19 20:00] VITALS: BP 125/75
[2016-11-20] VITALS: BP 129/82
[2016-11-20] MEDS: fentaNYL INJECTION 100 MCG/2 ML AMP IV PRN
[2016-11-20 04:00] VITALS: BP 135/84
[2016-11-20 04:21] LABS: MEAN PLATELET VOLUME 10.2 FL (7.4-10.4); RED BLOOD COUNT 4.1 10^6/uL (4.35-5.85); WHITE BLOOD COUNT 7.7 10^3/uL (4.3-11.0)
[2016-11-20 04:39] LABS: ANION GAP 9 MMOL/L (5-14); BLOOD UREA NITROGEN 21 MG/DL (7-18); BUN/CREATININE RATIO 27 (0-20); CALCIUM 7.9 MG/DL (8.5-10.1); CARBON DIOXIDE 18 MMOL/L (21-32); CHLORIDE 111 MMOL/L (98-107); CREATININE SERUM 0.78 MG/DL (0.60-1.30); GFR ESTIMATED > 60; GLUCOSE 155 MG/DL (70-105); HEMOLYSIS 9 (-100-29); ICTERUS 0.3 (-100-1.9); LIPEMIA 8 (-100-49); SODIUM 138 MMOL/L (135-145)
[2016-11-20] MEDS: inSUlin (REGULAR) HUMAN 1 UNIT/0.01 ML (CHARGE PER UNIT) SC SCH (05:09)
[2016-11-20] MEDS: CATHETER FLUSH 10 ML SYR IV SCH (05:09)
--- NOTE | 2016-11-20 07:27 | Progress Note (SOAP) ---
Subjective Time Seen by Provider: 07:05 Subjective/Events-last exam chest discomfort noncardiac still has some. Patient had cardiac catheter which was negative. Chest discomfort. Diabetes. Back pain. Objective Exam Vital Signs Date Time Temp Pulse Resp B/P (MAP) Pulse Ox O2 Delivery O2 Flow Rate FiO2 11/20/16 04:00 98.2 89 16 135/84 95 Room Air 11/20/16 01:00 80 11/20/16 00:00 97.3 85 16 129/82 96 Room Air 11/19/16 22:33 98.6 11/19/16 22:03 98.6 11/19/16 21:00 95 Room Air 11/19/16 20:00 98.1 88 16 125/75 95 Room Air 11/19/16 19:00 82 11/19/16 13:30 98.6 67 17 105/49 100 Room Air 11/19/16 13:00 68 11/19/16 09:00 95 Room Air 11/19/16 08:19 96.1 72 18 105/58 95 Room Air I & O 11/20/16 07:00 Intake Total 1300 ml Output Total 201 ml Balance 1099 ml Capillary Refill : Less Than 3 SecondsLess Than 3 Seconds General Appearance: No Apparent Distress, WD/WN HEENT: Normal ENT Inspection Neck: Full Range of Motion, Normal Inspection Respiratory: Chest Non Tender, Lungs Clear, Normal Breath Sounds, No Accessory Muscle Use, No Respiratory Distress Cardiovascular: Regular Rate, Rhythm, No Murmur Gastrointestinal: non tender, soft Results Lab Laboratory Tests 11/20/16 03:43 Laboratory Tests 11/19/16 16:20: Glucometer 178H 11/19/16 22:05: Glucometer 178H 11/20/16 03:43: White Blood Count 7.7, Red Blood Count 4.10L, Hemoglobin 11.9, Hematocrit 36, Mean Corpuscular Volume 88, Mean Corpuscular Hemoglobin 29, Mean Corpuscular Hemoglobin Concent 33, Red Cell Distribution Width 13.0, Platelet Count 232, Mean Platelet Volume 10.2, Sodium Level 138, Potassium Level 4.0, Chloride Level 111H, Carbon Dioxide Level 18L, Anion Gap 9, Blood Urea Nitrogen 21H, Creatinine 0.78, Estimat Glomerular Filtration Rate > 60, BUN/Creatinine Ratio 27H, Glucose Level 155H, Calcium Level 7.9L Assessment/Plan Assessment/Plan Assess & Plan/Chief Complaint chest discomfort. Hypertension. Hyperlipidemia. Diabetes. Chronic tobacco usage. Obesity.. Patient to have heart catheter this a.m.. . 11/20/16. Patient had negative cardiac catheter. Patient does complain of chest discomfort this morning. Diabetes Patient stable and doing well Clinical Quality Measures AMI/AHF: ASA po Prior to arrival: No DVT/VTE Risk/Contraindication: Risk Factor Score Per Nursin RFS Level Per Nursing on Admit: 3=High MOSES SANDERSON DO Nov 20, 2016 07:27
[2016-11-20] MEDS ORDERED: HYDROcodone/APAP 5 MG/325 MG (LORTAB) TAB PO NR (07:37)
[2016-11-20 08:00] VITALS: BP 132/82
[2016-11-20] MEDS: PANTOPRAZOLE 40 MG/10 ML (PROTONIX) VIAL IV SCH (08:03)
[2016-11-20] MEDS: lisINopril 20 MG (ZESTRIL) TAB PO SCH (08:03)
--- NOTE | 2016-11-20 08:35 | Progress Note-Cardiology ---
Cardiology SOAP Progress Note Subjective: Sitting up in bed eating morning meal. Reports continued chest discomfort which is unchanged. No c/o dyspnea, palpitations, syncope or near syncope. C/ O mild groin tenderness. Has continuous L upper chest discomfort without radiation. No other symptoms Objective: I&O/Vital Signs Vital Sign - Last 12Hours 11/19/16 11/19/16 11/20/16 11/20/16 22:03 22:33 00:00 01:00 Temp 98.6 98.6 97.3 Pulse 85 80 Resp 16 B/P (MAP) 129/82 Pulse Ox 96 O2 Delivery Room Air 11/20/16 11/20/16 11/20/16 11/20/16 04:00 07:00 08:00 08:28 Temp 98.2 98.0 Pulse 89 73 78 Resp 16 16 B/P (MAP) 135/84 132/82 Pulse Ox 95 95 95 O2 Delivery Room Air Room Air Room Air Intake and Output 11/20/16 00:00 Intake Total 1300 ml Output Total 201 ml Balance 1099 ml Weight (Pounds): 245 Weight (Ounces): 0.0 Weight (Calculated Kilograms): 111.377192 Side: right Groin site without hematoma: Yes Condition: DP/PT pulses palpable, extremity w/d/p Bruising: mild bruising Constitutional: AAO x 3, well-developed, well-nourished Respiratory: No accessory muscle use, lungs clear to percussion, lungs clear to auscultation Cardiovascular: regular rate-rhythm, S1 and S2, systolic murmur (faint SISSY at cardiac base) Gastrointestional: No tender, soft, No guarding, No rebound, audible bowel sounds Extremities: No clubbing, No cyanosis, No significant edema Neurologic/Psychiatric: oriented x 3, grossly intact, power is 5/5 both on sides Skin: No rash on exposed areas, No ulcerations on exposed areas Results/Procedures: Labs Laboratory Tests 11/19/16 16:20: Glucometer 178H 11/19/16 22:05: Glucometer 178H 11/20/16 03:43: White Blood Count 7.7, Red Blood Count 4.10L, Hemoglobin 11.9, Hematocrit 36, Mean Corpuscular Volume 88, Mean Corpuscular Hemoglobin 29, Mean Corpuscular Hemoglobin Concent 33, Red Cell Distribution Width 13.0, Platelet Count 232, Mean Platelet Volume 10.2, Sodium Level 138, Potassium Level 4.0, Chloride Level 111H, Carbon Dioxide Level 18L, Anion Gap 9, Blood Urea Nitrogen 21H, Creatinine 0.78, Estimat Glomerular Filtration Rate > 60, BUN/Creatinine Ratio 27H, Glucose Level 155H, Calcium Level 7.9L Procedures Cardiac cath on 11-19-16. Please refer to Dr. Peguero's cardiac cath report of for details. A/P: Assessment: Chest discomfort, non cardiac Card cath of 11/19/16: no significant CAD, LVEDP 18 mmHg, LVEF 60% Hypertension Hyperlipidemia DM II Fam h/o early CAD Chronic tobacco use Obesity with BMI approx 43 Plan: * Based on card cath of 11/19/16, chest discomfort does not appear to be of card origin * We advised immediate and complete smoking cessation. Other risk factor modification also reviewed * High groin stick at time of card cath - no evidence of bleeding * OK to discharge home today from cardiac stand point * Out pt f/u in 4-6 weeks Physician Assessment Physician Assessment Lungs: clear Cor: reg A&R * As documented in our note above that I updated at the time of this writing ( italics) * Focus of CV management is on risk factor modification and this was discussed with her in detail: efforts a wgt loss, complete smoking cessation, medication compliance, and medical f/u * I answered her questions in detail * Further w/u and management of chest discomfort is with Dr Marino Clinical Quality Measures AMI/AHF: ASA po Prior to arrival: MICHAELA Hi [employer]ING MACHINE OPERATOR Nov 20, 2016 08:35 MAIRA PEGUERO MD FACP [facility] Nov 20, 2016 09:49
[2016-11-20 10:05] LABS: MEAN PLATELET VOLUME 9.7 FL (7.4-10.4); RED BLOOD COUNT 4.23 10^6/uL (4.35-5.85); WHITE BLOOD COUNT 7.2 10^3/uL (4.3-11.0)
--- NOTE | 2016-11-21 18:23 | Clinic Account Progress/Dx ---
Clinic Account Progress/Dx DIAGNOSIS: Time Seen by Provider: 06:20 Diagnosis chest discomfort noncardiac. Diabetes. Hypertension. Tobacco usage. Hyperlipidemia. Obesity. Body mass index 40/44.9. Family history of heart disease. MOSES SANDERSON DO Nov 21, 2016 18:23
--- OUTSIDE RECORDS SUMMARY | 2016-11-22 12:44 | XMS REPORT | Referral Summary ---
Author Author [facility] Organization [facility] Address Unknown Phone Unavailable Encounter VC GUTIERREZ [id number] Date(s): 12/07/14 - 12/08/14 [facility] [address] [place] [address] Discharge Diagnosis: Hypertension Final: OTHER CHEST PAIN Final: ANEMIA, UNSPECIFIED Final: Acute Kidney Failure, Unspecified Final: UNSPECIFIED ESSENTIAL HYPERTENSION Final: OTHER NONSPECIFIC ABNORMAL SERUM ENZYME LEVELS Final: Diabetes mellitus with neurological manifestations, type II or unspecified type, not stated as uncontrolled Final: POLYNEUROPATHY IN DIABETES Final: Leukocytosis, unspecified Final: OTHER CANDIDIASIS OF OTHER SPECIFIED SITES Final: HYPOPOTASSEMIA Final: DISORDERS OF MAGNESIUM METABOLISM Final: OTHER AND UNSPECIFIED HYPERLIPIDEMIA Final: Other drug allergy Final: Long-Term (Current) Use of Insulin Final: Long-Term (Current) Use of Other Medications Final: ANTILIPEMIC AND ANTIARTERIOSCLEROTIC DRUGS CAUSING ADVERSE EFFECTS IN THERAPEUTIC USE Discharge Diagnosis: Diabetes Discharge Disposition: 01-Home or Self Care Attending Physician: Neo Morrison MD Admitting Physician: Tish Petit DO Vital Signs Most recent to 1 oldest [Reference Range]: Temperature Oral 36.6 degC [35.8-37.3 degC] (12/08/14 1:00 PM) Peripheral Pulse 81 bpm Rate [60-100 bpm] (12/08/14 2:00 PM) Heart Rate Monitored 74 bpm [60-100 bpm] (12/07/14 8:03 PM) Respiratory Rate 18 br/min [14-20 br/min] (12/08/14 1:00 PM) Blood Pressure 100/53 mmHg [90-140/60-90 mmHg] (12/08/14 2:00 PM) Mean Arterial 59 mmHg Pressure, Cuff (12/07/14 8:03 PM) SpO2 100 % (12/08/14 1:00 PM) Problem List Condition Effective Dates Status Health Status Informant Acute Active pain(Confirmed) Antimicrobial Active resistant organism(Confirmed)1 Diabetes(Confirmed) Active patient Hypertension(Confirm Active patient ed) Neuropathy(Confirmed Active patient ) Tobacco Active patient user(Confirmed) 1Urine from NOT FOUND collected 12/08/14 0:44:00 CDT Allergies, Adverse Reactions, Alerts Substance Reaction Severity Status Ceclor Rash Mild Active penicillin rash Severe Active sulfa drugs Rash Mild Active Medications acetaminophen 325 mg oral tablet 650 mg 2 tabs, Oral, q4hr, Other (See Comment), 0 Refill(s) Start Date: 12/08/14 Status: Ordered Levemir 40 units, SubCutaneous, BID, 0 Refill(s) Start Date: 12/07/14 Status: Ordered Maalox Advanced Maximum Strength oral suspension 30 mL, Oral, q6hr, GERD/Heartburn, 0 Refill(s) Start Date: 12/08/14 Status: Ordered traMADol 100 mg, Oral, TID, as needed for pain, 0 Refill(s) Start Date: 12/07/14 Status: Ordered Tums 500 mg oral tablet, chewable 500 mg 1 tabs, Oral, q4hr, GERD/Heartburn, 0 Refill(s) Start Date: 12/08/14 Status: Ordered Results Hematology Most recent to 1 oldest [Reference Range]: WBC [4.8-10.8 7.9 10*3/uL 10*3/uL] (12/08/14 3:10 AM) RBC [4.00-5.20 3.90 10*6/uL 10*6/uL] *LOW* (12/08/14 3:10 AM) Hgb [12.0-16.0 11.5 gm/dL gm/dL] *LOW* (12/08/14 3:10 AM) Hct [37.0-47.0 %] 34.1 % *LOW* (12/08/14 3:10 AM) MCV [82.0-99.0 fL] 87.4 fL (12/08/14 3:10 AM) MCH [27.0-32.0 pg] 29.5 pg (12/08/14 3:10 AM) MCHC [32.0-36.0 33.7 gm/dL gm/dL] (12/08/14 3:10 AM) RDW [11.5-14.5 %] 13.7 % (12/08/14 3:10 AM) Platelet [150-400 268 10*3/uL 10*3/uL] (12/08/14 3:10 AM) MPV [9.4-12.4 fL] 10.9 fL (12/08/14 3:10 AM) Immature 0.4 % Granulocytes (12/08/14 3:10 AM) [0.0-1.0 %] Neutrophils [51-75 53 % %] (12/08/14 3:10 AM) Lymphocytes [20-46 35 % %] (12/08/14 3:10 AM) Monocytes [4-11 %] 6 % (12/08/14 3:10 AM) Eosinophils [0-4 %] 5 % *HI* (12/08/14 3:10 AM) Basophils [0-2 %] 0 % (12/08/14 3:10 AM) Neutro Absolute 4.21 10*3 [1.90-7.00 10*3] (12/08/14 3:10 AM) Lymph Absolute 2.80 10*3 [0.80-3.30 10*3] (12/08/14 3:10 AM) [place] Absolute 0.47 10*3 [0.30-1.00 10*3] (12/08/14 3:10 AM) Eos Absolute 0.39 10*3 [0.00-0.50 10*3] (12/08/14 3:10 AM) Baso Absolute 0.03 10*3 [0.00-0.20 10*3] (12/08/14 3:10 AM) Nucleated RBC 0.0 /100 WBC Automated [0 /100 (12/08/14 3:10 AM) WBC] Coagulation Most recent to 1 oldest [Reference Range]: D-Dimer [0-600 1062 ng{FEU}/mL 1 ng{FEU}/mL] *HI* (12/07/14 6:38 PM) 1Result Comment: A D Dimer result of <500 ng/mL FEU has a negative predictive value of approximately 100% for the exclusion of DVT and acute PE. Chemistry Most recent to 1 oldest [Reference Range]: Sodium Lvl [136-144 135 mEq/L mEq/L] *LOW* (12/08/14 3:10 AM) Potassium Lvl 3.3 mEq/L [3.6-5.1 mEq/L] *LOW* (12/08/14 3:10 AM) Chloride [99-109 108 mEq/L mEq/L] (12/08/14 3:10 AM) CO2 [22-32 mEq/L] 16 mEq/L *LOW* (12/08/14 3:10 AM) AGAP [3-20] 11 (12/08/14 3:10 AM) BUN [4-20 mg/dL] 56 mg/dL *HI* (12/08/14 3:10 AM) Glucose Lvl [70-100 218 mg/dL mg/dL] *HI* (12/08/14 3:10 AM) Creatinine Lvl 1.71 mg/dL [0.44-1.03 mg/dL] *HI* (12/08/14 3:10 AM) eGFR [>60] 31 1 *ABN* (12/08/14 3:10 AM) Calcium Lvl 7.6 mg/dL [8.6-10.0 mg/dL] *LOW* (12/08/14 3:10 AM) Albumin Lvl [3.5-4.8 3.6 gm/dL gm/dL] (12/07/14 4:31 PM) Total Protein 6.5 gm/dL [6.1-7.9 gm/dL] (12/07/14 4:31 PM) Globulin [1.9-4.3 2.9 gm/dL gm/dL] (12/07/14 4:31 PM) ALT [14-54 U/L] 13 U/L *LOW* (12/07/14 4:31 PM) AST [15-41 U/L] 17 U/L (12/07/14 4:31 PM) Alk Phos [26-104 73 U/L U/L] (12/07/14 4:31 PM) Bili Total [0.2-1.2 0.3 mg/dL 2 mg/dL] (12/07/14 4:31 PM) Magnesium Lvl 1.6 mg/dL [1.8-2.5 mg/dL] *LOW* (12/08/14 3:10 AM) BNP [0-99 pg/mL] 19 pg/mL (12/07/14 9:38 PM) Troponin [<0.06 <0.05 ng/mL ng/mL] (12/08/14 9:14 AM) Blood Glucose, 180 mg/dL Capillary [70-100 *HI* mg/dL] (12/08/14 12:09 PM) Chol [0-200 mg/dL] 211 mg/dL *HI* (12/07/14 9:38 PM) Trig [0-150 mg/dL] 421 mg/dL *HI* (12/07/14 9:38 PM) HDL [>40 mg/dL] 32 mg/dL *ABN* (12/07/14 9:38 PM) LDL [0-100] INVALID 3 (12/07/14 9:38 PM) VLDL Cholesterol INVALID [0-30] (12/07/14 9:38 PM) Cardiac Risk 6.6 [0.0-5.0] *HI* (12/07/14 9:38 PM) Hgb A1c [4.1-5.6 %] 7.9 % *HI* (12/08/14 3:10 AM) eAvg Glucose 180.0 mg/dL (12/08/14 3:10 AM) 1Result Comment: Multiply eGFR results by 1.21 for race. 2Result Comment: Naproxen, specifically the metabolite O-desmethylnaproxen, may cause spurious elevation in Total Bilirubin levels. 3Result Comment: LDL and VLDL are invalid with Triglyceride greater than 400. Urinalysis Most recent to 1 oldest [Reference Range]: UA Color Yellow (12/08/14 12:44 AM) UA Appear Clear (12/08/14 12:44 AM) UA pH [5.0-8.0] 5.0 (12/08/14 12:44 AM) UA Leuk Est Pos 1+ [Negative] *ABN* (12/08/14 12:44 AM) UA Nitrite Negative [Negative] (12/08/14 12:44 AM) UA Protein Trace [Negative] *ABN* (12/08/14 12:44 AM) UA Glucose Pos 1+ [Negative] *ABN* (12/08/14 12:44 AM) UA Ketones Negative [Negative] (12/08/14 12:44 AM) UA Urobilinogen Negative [<1.0] (12/08/14 12:44 AM) UA Bili [Negative] Negative (12/08/14 12:44 AM) UA Blood [Negative] Trace *ABN* (12/08/14 12:44 AM) UA Spec Grav 1.017 [1.003-1.030] (12/08/14 12:44 AM) Type Clean Catch (12/08/14 12:44 AM) UA WBC [0-4] 10-20 *ABN* (12/08/14 12:44 AM) UA RBC [0-2] 0-2 (12/08/14 12:44 AM) Epithelial Cells 5-10 (12/08/14 12:44 AM) UA Bacteria Moderate *ABN* (12/08/14 12:44 AM) Microbiology Reports TEST: Urine Culture STATUS: Auth (Verified) BODY SITE: SOURCE: Urine COLLECTED DATE/TIME: 12/08/14 12:44 AM Urine Culture - In addition to: Mixed tr indicative of vaginal and/or skin contamination Escherichia coli >100,000 cfu/ml ORGANISM:Escherichia coli Immunizations No data available for this section Procedures No data available for this section Social History Social History Type Response Smoking Status Current every day smoker; Type: Cigarettes; Tobacco use per day: Pack; Number of years: 20 Assessment and Plan No data available for this section
--- OUTSIDE RECORDS SUMMARY | 2016-11-22 12:47 | XMS REPORT | Continuity of Care Document ---
Author Author [facility] Organization [facility] Address Unknown Phone Unavailable Allergies Active Description Code Type Severity Reaction Onset Reported/Identified Relationship to Patient Clinical Status Yes tetracycline [id number] Drug Allergy Moderate N/A 01/16/2015 Yes cefaclor [id number] Drug Allergy Unknown N/A 01/16/2015 Yes cyclobenzaprine HCl [id number] Drug Allergy Unknown N/A 01/16/2015 Yes Penicillins [id number] Drug Allergy Unknown N/A 01/16/2015 Yes sulfamethoxazole [id number] Drug Allergy Unknown N/A 01/16/2015 Yes trimethoprim [id number] Drug Allergy Unknown N/A 01/16/2015 Medications Problems Date Dx Coded Attending Type Code Diagnosis Diagnosed By 03/19/2010 Ot 356.9 03/19/2010 Ot 625.3 03/19/2010 Ot 729.5 06/02/2010 Ot 788.0 RENAL COLIC 06/02/2010 Ot 789.09 ABDOMINAL PAIN, OTHER SPECIFIED SITE 07/23/2010 Ot 788.0 RENAL COLIC 07/23/2010 Ot 789.00 ABDOMINAL PAIN, UNSPECIFIED SITE 12/17/2010 Ot 846.0 SPRAIN LUMBOSACRAL 12/17/2010 Ot 847.1 SPRAIN THORACIC REGION 12/17/2010 Ot 959.19 OTH INJURY OF OTHER SITES OF TRUNK 12/17/2010 Ot E000.8 OTHER EXTERNAL CAUSE STATUS 12/17/2010 Ot E849.0 ACCIDENT IN HOME 12/17/2010 Ot E885.9 FALL FROM SLIPPING, TRIPPING, OR STUMBLI 01/15/2011 Ot 789.09 ABDOMINAL PAIN, OTHER SPECIFIED SITE 01/25/2011 Ot 553.20 VENTRAL HERNIA NOS 01/25/2011 Ot 562.10 DIVERTICULOSIS COLON (W/O MENT OF HEMORR 01/25/2011 Ot 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 DIS NEC 01/25/2011 Ot 571.8 CHRONIC LIVER DIS NEC 01/25/2011 Ot 728.84 DIASTASIS OF MUSCLE 01/25/2011 Ot 789.00 ABDOMINAL PAIN, UNSPECIFIED SITE 01/25/2011 Ot 791.9 ABN URINE FINDINGS NEC 02/19/2011 Ot 521.00 UNSPEC DENTAL CARIES 02/19/2011 Ot 724.2 LUMBAGO 04/06/2011 Ot 789.03 ABDOMINAL PAIN, RIGHT LOWER QUADRANT 06/05/2011 Ot 846.0 SPRAIN LUMBOSACRAL 06/05/2011 Ot 959.19 OTH INJURY OF OTHER SITES OF TRUNK 06/05/2011 Ot E000.8 OTHER EXTERNAL CAUSE STATUS 06/05/2011 Ot E849.0 ACCIDENT IN HOME 06/05/2011 Ot E927.0 OVEREXERTION FROM SUDDEN STRENUOUS MOVEM 07/01/2011 Ot 789.03 ABDOMINAL PAIN, RIGHT LOWER QUADRANT 07/23/2011 Ot 724.2 LUMBAGO 07/23/2011 Ot E000.8 OTHER EXTERNAL CAUSE STATUS 07/23/2011 Ot E849.0 ACCIDENT IN HOME 07/23/2011 Ot E888.9 FALL NOS 08/14/2011 Ot 553.20 VENTRAL HERNIA NOS 08/14/2011 Ot 789.00 ABDOMINAL PAIN, UNSPECIFIED SITE 08/23/2011 Ot 789.01 ABDOMINAL PAIN, RIGHT UPPER QUADRANT 09/05/2011 Ot 553.8 HERNIA NEC 09/05/2011 Ot 789.03 ABDOMINAL PAIN, RIGHT LOWER QUADRANT 09/07/2011 Ot 789.09 ABDOMINAL PAIN, OTHER SPECIFIED SITE 09/07/2011 Ot 846.0 SPRAIN LUMBOSACRAL 09/07/2011 Ot 847.0 SPRAIN OF NECK 09/07/2011 Ot 850.0 CONCUSSION W/O COMA 09/07/2011 Ot 873.0 OPEN WOUND OF SCALP 09/07/2011 Ot 959.01 HEAD INJURY, NOS 09/07/2011 Ot E000.8 OTHER EXTERNAL CAUSE STATUS 09/07/2011 Ot E849.0 ACCIDENT IN HOME 09/07/2011 Ot E888.1 FALL STRIKING OBJECT NEC 09/07/2011 Ot V06.1 [id number], COMBINED [ 10/05/2011 Ot 789.03 ABDOMINAL PAIN, RIGHT LOWER QUADRANT 10/08/2011 Ot 338.29 OTHER CHRONIC PAIN 10/08/2011 Ot 924.01 CONTUSION OF HIP 10/08/2011 Ot 924.11 CONTUSION OF KNEE 10/08/2011 Ot 959.6 HIP THIGH INJURY NOS 10/08/2011 Ot E000.8 OTHER EXTERNAL CAUSE STATUS 10/08/2011 Ot E849.0 ACCIDENT IN HOME 10/08/2011 Ot E885.9 FALL FROM SLIPPING, TRIPPING, OR STUMBLI 11/26/2011 Ot 110.4 DERMATOPHYTOSIS OF FOOT 11/26/2011 Ot 355.9 MONONEURITIS NOS 01/05/2012 Ot 789.00 ABDOMINAL PAIN, UNSPECIFIED SITE 02/02/2012 Ot 553.20 VENTRAL HERNIA NOS 02/02/2012 Ot 789.00 ABDOMINAL PAIN, UNSPECIFIED SITE 12/22/2012 YVONNE KRUSE, SIERRA Gallo Ot 250.00 DIAB SHAVONNE WO COMPL, TYPE II OR UNSPEC TY 12/22/2012 YVONNE KRUSE, SIERRA Gallo Ot 305.1 TOBACCO USE DISORDER 12/22/2012 YVONNE KRUSE, SIERRA Gallo Ot 311 DEPRESSIVE DISORDER NEC 12/22/2012 YVONNE KRUSE, SIERRA Gallo Ot 553.20 VENTRAL HERNIA NOS 12/22/2012 YVONNE KRUSE, SIERRA Gallo Ot 592.0 CALCULUS OF KIDNEY 12/22/2012 YVONNE KRUSE, SIERRA Gallo Ot 724.2 LUMBAGO 12/22/2012 YVONNE KRUSE, SIERRA Gallo Ot 789.00 ABDOMINAL PAIN, UNSPECIFIED SITE 12/22/2012 YVONNE KRUSE, SIERRA Gallo Ot V13.01 PERSONAL HISTORY OF URINARY CALCULI 03/16/2013 VANNESA ARAYA DO Ot 276.51 DEHYDRATION 03/16/2013 VANNESA ARAYA DO Ot 276.9 ELECTROLYT/FLUID DIS NEC 03/16/2013 VANNESA ARAYA DO Ot 724.3 SCIATICA 03/16/2013 VANNESA ARAYA DO Ot 780.79 OTH MALAISE FATIGUE 03/16/2013 VANNESA ARAYA DO Ot 847.2 SPRAIN LUMBAR REGION 03/16/2013 VANNESA ARAYA DO Ot E000.8 OTHER EXTERNAL CAUSE STATUS 03/16/2013 VANNESA ARAYA DO Ot E849.[address] NEC 03/16/2013 VANNESA ARAYA DO Ot E888.9 FALL NOS 03/28/2013 GELLENDER MOSES RUIZ A Ot 250.00 DIAB SHAVONNE WO COMPL, TYPE II OR UNSPEC TY 03/28/2013 MARIA E RUIZMOSES Ot 285.9 ANEMIA NOS 03/28/2013 ALLANURSULAROXANN MOSES RUIZ Ot 311 DEPRESSIVE DISORDER NEC 03/28/2013 ALLANBRADY MOSES RUIZ Ot 356.9 IDIO PERIPH NEURPTHY NOS 03/28/2013 MARIA E RUIZMOSES Ot 401.9 HYPERTENSION NOS 03/28/2013 JOELROXANN MOSES RUIZ Ot 458.29 OTHER IATROGENIC HYPOTENSION 03/28/2013 JOELROXANN MOSES RUIZ Ot 530.81 ESOPHAGEAL REFLUX 03/28/2013 ALLANBRADY MOSES RUIZ Ot 531.90 STOMACH ULCER NOS 03/28/2013 MARIA E RUIZMOSES Ot 532.90 DUODENAL ULCER NOS 03/28/2013 JOELROXANN MOSES RUIZ Ot 557.9 VASC INSUFF INTEST NOS 03/28/2013 MARIA E RUIZMOSES Ot 562.10 DIVERTICULOSIS COLON (W/O MENT OF HEMORR 03/28/2013 MOSES SANDERSON DO Ot 577.0 ACUTE PANCREATITIS 03/28/2013 MOSES SANDERSON DO Ot 593.9 RENAL URETERAL DIS NOS 03/28/2013 MARIA E MOSES RUIZ Ot 599.0 URIN TRACT INFECTION NOS 03/28/2013 MOSES SANDERSON DO Ot 722.6 DISC DEGENERATION NOS 03/28/2013 JOELROXANN MOSES RUIZ Ot V12.71 PERSONAL HISTORY OF PEPTIC ULCER DISEASE 03/28/2013 MOSES SANDERSON DO Ot V15.82 HISTORY OF TOBACCO USE 03/28/2013 MOSES SANDERSON DO Ot V16.0 FAMILY HX-GI MALIGNANCY 03/28/2013 MOSES SANDERSON DO Ot V58.67 LONG-TERM (CURRENT) USE OF INSULIN 04/28/2013 ANSHUL ARAYA DOA Ines Ot 338.29 OTHER CHRONIC PAIN 04/28/2013 VANNESA ARAYA DO Ot 531.90 STOMACH ULCER NOS 04/28/2013 ANSHUL ARAYA DOA Ines Ot 599.0 URIN TRACT INFECTION NOS 04/28/2013 ANSHUL ARAYA DOA Ines Ot 789.00 ABDOMINAL PAIN, UNSPECIFIED SITE 09/19/2013 SIERRA RUSSELL MD Ot 599.0 URIN TRACT INFECTION NOS 09/19/2013 SIERRA RUSSELL MD Ot 789.02 ABDOMINAL PAIN, LEFT UPPER QUADRANT 03/22/2014 SIERRA RUSSELL MD Ot 250.00 DIAB SHAVONNE WO COMPL, TYPE II OR UNSPEC TY 03/22/2014 SIERRA RUSSELL MD Ot 787.01 NAUSEA WITH VOMITING 03/22/2014 SIERRA RUSSELL MD Ot 789.06 ABDOMINAL PAIN, EPIGASTRIC 03/22/2014 SIERRA RUSSELL MD Ot V58.67 LONG-TERM (CURRENT) USE OF INSULIN 07/22/2014 Ot 715.96 07/22/2014 Ot 719.06 01/16/2015 Ot 715.96 01/16/2015 Ot 719.06 01/18/2015 SCARLET JORGE MD Ot 250.70 DIAB W PERIPH CIRC DIS, TYPE II OR UNSPE 01/18/2015 SCARLET JORGE MD Ot 272.4 HYPERLIPIDEMIA NEC/NOS 01/18/2015 SCARLET JORGE MD Ot 278.00 OBESITY, NOS 01/18/2015 SCARLET JORGE MD Ot 305.1 TOBACCO USE DISORDER 01/18/2015 SCARLET JORGE MD Ot 311 DEPRESSIVE DISORDER NEC 01/18/2015 SCARLET JORGE MD Ot 401.9 HYPERTENSION NOS 01/18/2015 SCARLET JORGE MD Ot 530.81 ESOPHAGEAL REFLUX 01/18/2015 SCARLET JORGE MD Ot 785.4 GANGRENE 01/18/2015 SCARLET JORGE MD Ot V58.67 LONG-TERM (CURRENT) USE OF INSULIN 01/18/2015 SCARLET JORGE MD Ot V85.41 BODY MASS INDEX 40.0-44.9, ADULT 01/19/2015 Ot 715.96 01/19/2015 Ot 719.06 02/13/2015 Ot 715.96 02/13/2015 Ot 719.06 02/13/2015 MARI KRUSE, ANDREZ Gallo Ot 250.70 02/13/2015 ANDREZ GUERRA MD Ot 272.4 02/13/2015 ANDREZ GUERRA MD Ot 311 02/13/2015 MARI KRUSE, ANDREZ Gallo Ot 401.9 02/13/2015 ANDREZ GUERRA MD Ot 707.15 02/13/2015 QUIANA DO, VANNESA K Ot 250.00 DIAB SHAVONNE WO COMPL, TYPE II OR UNSPEC TY 02/13/2015 QUIANA , VANNESA K Ot 272.4 HYPERLIPIDEMIA NEC/NOS 02/13/2015 QUIANA ANSHUL RUIZA K Ot 401.9 HYPERTENSION NOS 02/13/2015 QUIANA RUIZ, VANNESA K Ot 681.10 CELLULITIS, TOE NOS 02/13/2015 ANSHUL ARAYA DOA K Ot 682.7 CELLULITIS OF FOOT 02/13/2015 VANNESA ARAYA DO K Ot 729.5 PAIN IN LIMB 02/13/2015 ANSHUL ARAYA DOA K Ot V58.67 LONG-TERM (CURRENT) USE OF INSULIN 02/13/2015 ANSHUL ARAYA DOA K Ot V58.69 OTH MED,LT,CURRENT USE 02/15/2015 Ot 715.96 02/15/2015 Ot 719.06 02/15/2015 ANDREZ GUERRA MD Ot 250.70 02/15/2015 ANDREZ GUERRA MD Ot 272.4 02/15/2015 ANDREZ GUERRA MD Ot 311 02/15/2015 ANDREZ GUERRA MD Ot 401.9 02/15/2015 ANDREZ GUERRA MD Ot 707.15 02/15/2015 ANDREZ GUERRA MD Ot 250.70 02/15/2015 ANDREZ GUERRA MD Ot 272.4 02/15/2015 ANDREZ GUERRA MD Ot 311 02/15/2015 ANDREZ GUERRA MD Ot 401.9 02/15/2015 ANDREZ GUERRA MD Ot 707.15 02/22/2015 ANDREZ GUERRA MD Ot 250.70 DIAB W PERIPH CIRC DIS, TYPE II OR UNSPE 02/22/2015 ANDREZ GUERRA MD Ot 272.4 HYPERLIPIDEMIA NEC/NOS 02/22/2015 ANDREZ GUERRA MD Ot 311 DEPRESSIVE DISORDER NEC 02/22/2015 ANDREZ GUERRA MD Ot 401.9 HYPERTENSION NOS 02/22/2015 ANDREZ GUERRA MD Ot 707.15 ULCER OF OTHER PART OF FOOT 02/22/2015 ANDREZ GUERRA MD Ot E11.51 TYPE 2 DIABETES W DIABETIC PERIPHERAL AN 02/22/2015 ANDREZ GUERRA MD Ot F32.9 MAJOR DEPRESSIVE DISORDER, SINGLE EPISOD 02/22/2015 ANDREZ GUERRA MD Ot I10 ESSENTIAL (PRIMARY) HYPERTENSION 02/22/2015 ANDREZ GUERRA MD Ot L97.509 NON-PRESSURE CHRONIC ULCER OTH PRT UNSP 05/04/2015 FELIPE GIL Ot E86.9 VOLUME DEPLETION, UNSPECIFIED 05/04/2015 FELIPE GIL Ot F17.210 NICOTINE DEPENDENCE, CIGARETTES, UNCOMPL 05/04/2015 FELIPE GIL Ot K42.9 UMBILICAL HERNIA WITHOUT OBSTRUCTION OR 05/04/2015 FELIPE GIL Ot R10.12 LEFT UPPER QUADRANT PAIN 05/04/2015 FELIPE GIL Ot R10.30 LOWER ABDOMINAL PAIN, UNSPECIFIED 05/04/2015 FELIPE GIL Ot R11.0 NAUSEA 05/04/2015 FELIPE GIL Ot R35.0 FREQUENCY OF MICTURITION 07/12/2015 Ot 715.96 07/12/2015 Ot 719.06 08/26/2015 Ot 715.96 08/26/2015 Ot 719.06 09/21/2015 Ot 715.96 OSTEOARTHROS NOS-L/LEG 09/21/2015 Ot 719.06 JOINT EFFUSION-L/LEG 01/13/2016 Ot 715.96 OSTEOARTHROS NOS-L/LEG 01/13/2016 Ot 719.06 JOINT EFFUSION-L/LEG 01/13/2016 CORWIN GARCIA APRN Ot E11.9 TYPE 2 DIABETES MELLITUS WITHOUT COMPLIC 01/13/2016 CORWIN GARCIA APRN Ot F17.210 NICOTINE DEPENDENCE, CIGARETTES, UNCOMPL 01/13/2016 CORWIN GARCIA APRN Ot G89.29 OTHER CHRONIC PAIN 01/13/2016 CORWIN GARCIA APRN Ot K57.30 DVRTCLOS OF LG INT W/O PERFORATION OR AB 01/13/2016 CORWIN GARCIA APRN Ot K76.0 FATTY (CHANGE OF) LIVER, NOT ELSEWHERE C 01/13/2016 CORWIN GARCIA APRN Ot M19.011 PRIMARY OSTEOARTHRITIS, RIGHT SHOULDER 01/13/2016 CORWIN GARCIA APRN Ot S30.1XXA CONTUSION OF ABDOMINAL WALL, INITIAL ENC 01/13/2016 CORWIN GARCIA APRN Ot S90.921A UNSPECIFIED SUPERFICIAL INJURY OF RIGHT 01/13/2016 CORWIN GARCIA APRN Ot S93.401A SPRAIN OF UNSPECIFIED LIGAMENT OF RIGHT 01/13/2016 CORWIN GARCIA APRN Ot W01.0XXA FALL SAME LEV FROM SLIP/TRIP W/O STRIKE 01/13/2016 CORWIN GARCIA APRN Ot Y92.[address] [facility] 01/13/2016 CORWIN GARCIA APRN Ot Y99.8 OTHER EXTERNAL CAUSE STATUS 01/13/2016 CORWIN GARCIA APRN Ot Z79.4 LIQUID LOADER (CURRENT) USE OF INSULIN 01/13/2016 Ot 715.96 OSTEOARTHROS NOS-L/LEG 01/13/2016 Ot 719.06 JOINT EFFUSION-L/LEG 01/17/2016 CORWIN GARCIA APRN Ot E11.9 TYPE 2 DIABETES MELLITUS WITHOUT COMPLIC 01/17/2016 CORWIN GARCIA APRN Ot F17.210 NICOTINE DEPENDENCE, CIGARETTES, UNCOMPL 01/17/2016 CORWIN GARCIA APRN Ot G89.29 OTHER CHRONIC PAIN 01/17/2016 CORWIN GARCIA APRN Ot K57.30 DVRTCLOS OF LG INT W/O PERFORATION OR AB 01/17/2016 CORWIN GARCIA APRN Ot K76.0 FATTY (CHANGE OF) LIVER, NOT ELSEWHERE C 01/17/2016 CORWIN GARCIA APRN Ot M19.011 PRIMARY OSTEOARTHRITIS, RIGHT SHOULDER 01/17/2016 CORWIN GARCIA APRN Ot S30.1XXA CONTUSION OF ABDOMINAL WALL, INITIAL ENC 01/17/2016 CORWIN GARCIA APRN Ot S90.921A UNSPECIFIED SUPERFICIAL INJURY OF RIGHT 01/17/2016 CORWIN GARCIA APRN Ot S93.401A SPRAIN OF UNSPECIFIED LIGAMENT OF RIGHT 01/17/2016 CORWIN GARCIA APRN Ot W01.0XXA FALL SAME LEV FROM SLIP/TRIP W/O STRIKE 01/17/2016 CORWIN GARCIA APRN Ot Y92.[address] IN [facility] ( [facility]IVATE 01/17/2016 CORWIN GARCIA APRN Ot Y99.8 OTHER EXTERNAL CAUSE STATUS 01/17/2016 CORWIN GARCIA APRN Ot Z79.4 LIQUID LOADER (CURRENT) USE OF INSULIN 08/14/2016 Ot 715.96 OSTEOARTHROS NOS-L/LEG 08/14/2016 Ot 719.06 JOINT EFFUSION-L/LEG 11/07/2016 Ot 715.96 OSTEOARTHROS NOS-L/LEG 11/07/2016 Ot 719.06 JOINT EFFUSION-L/LEG 11/07/2016 Ot 715.96 OSTEOARTHROS NOS-L/LEG 11/07/2016 Ot 719.06 JOINT EFFUSION-L/LEG 11/15/2016 GELLENDER DO, MOSES Norris Ot M25.512 PAIN IN LEFT SHOULDER 11/15/2016 [facility] Jr Ot Z00.00 ENCNTR FOR GENERAL ADULT MEDICAL EXAM W/ 11/17/2016 Ot 715.96 OSTEOARTHROS NOS-L/LEG 11/17/2016 Ot 719.06 JOINT EFFUSION-L/LEG 11/17/2016 GELLENDER DO, MOSES Norris Ot M25.512 PAIN IN LEFT SHOULDER 11/17/2016 [facility] MOSES Jr Ot Z00.00 ENCNTR FOR GENERAL ADULT MEDICAL EXAM W11/20/2016 Ot 715.96 OSTEOARTHROS NOS-L/LEG 11/20/2016 Ot 719.06 JOINT EFFUSION-L/LEG 11/20/2016 [facility] MOSES Jr Ot M25.512 PAIN IN LEFT SHOULDER 11/20/2016 [facility] DO, MOSES Norris Ot Z00.00 ENCNTR FOR GENERAL ADULT MEDICAL EXAM W/ Procedures Code Description Performed By Performed On 45.16 ESOPHAGOGASTRODUODENOSCOPY [EGD] W/CLOSE 03/26/2013 45.25 CLOSED ENDOSCOPIC BIOPSY OF LARGE INTEST 03/26/2013 Results Test Result Range Complete blood count (CBC) with automated white blood cell (WBC) differential - 01/13/16 16:35 Blood leukocytes automated count (number/volume) 11.2 10*3/ uL 4.3-11.0 Blood erythrocytes automated count (number/volume) 4.79 10*6 /uL 4.35-5.85 Venous blood hemoglobin measurement (mass/volume) 14.4 g/dL 11.5-16.0 Blood hematocrit (volume fraction) 42 % 35-52 Automated erythrocyte mean corpuscular volume 87 [foz_us] 80-99 Automated erythrocyte mean corpuscular hemoglobin (mass per erythrocyte) 30 pg 25-34 Automated erythrocyte mean corpuscular hemoglobin concentration measurement ( mass/volume) 35 g/dL 32-36 Automated erythrocyte distribution width ratio 13.5 % 10.0-14.5 Automated blood platelet count (count/volume) 362 10*3/uL 130-400 Automated blood platelet mean volume measurement 9.7 [foz_us ] 7.4-10.4 Automated blood neutrophils/100 leukocytes 66 % 42-75 Automated blood lymphocytes/100 leukocytes 25 % 12-44 Blood monocytes/100 leukocytes 4 % 0-12 Automated blood eosinophils/100 leukocytes 4 % 0-10 Automated blood basophils/100 leukocytes 1 % 0-10 Blood neutrophils automated count (number/volume) 7.4 10*3 1.8-7.8 Blood lymphocytes automated count (number/volume) 2.8 10*3 1.0-4.0 Blood monocytes automated count (number/volume) 0.5 10*3 0.0-1.0 Automated eosinophil count 0.4 10*3/uL 0.0-0.3 Automated blood basophil count (count/volume) 0.1 10*3/uL 0.0-0.1 Comprehensive metabolic panel - 01/13/16 16:35 Serum or plasma sodium measurement (moles/volume) 138 mmol/ L 135-145 Serum or plasma potassium measurement (moles/volume) 4.1 mmol/L 3.6-5.0 Serum or plasma chloride measurement (moles/volume) 107 mmol /L 98-107 Carbon dioxide 20 mmol/L 21-32 Serum or plasma anion gap determination (moles/volume) 11 mmol/L 5-14 Serum or plasma urea nitrogen measurement (mass/volume) 11 mg/dL 7-18 Serum or plasma creatinine measurement (mass/volume) 0.83 mg /dL 0.60-1.30 Serum or plasma urea nitrogen/creatinine mass ratio 13 NRG Serum or plasma creatinine measurement with calculation of estimated glomerular filtration rate > NRG Serum or plasma glucose measurement (mass/volume) 171 mg/dL 70-105 Serum or plasma calcium measurement (mass/volume) 9.9 mg/dL 8.5-10.1 Serum or plasma total bilirubin measurement (mass/volume) 0.2 mg/dL 0.1-1.0 Serum or plasma alkaline phosphatase measurement (enzymatic activity/volume) 66 U/L 40-136 Serum or plasma aspartate aminotransferase measurement (enzymatic activity/ volume) 13 U/L 5-34 Serum or plasma alanine aminotransferase measurement (enzymatic activity/volume ) 15 U/L 0-55 Serum or plasma protein measurement (mass/volume) 6.8 g/dL 6.4-8.2 Serum or plasma albumin measurement (mass/volume) 4.2 g/dL 3.2-4.5 Automated blood complete blood count (hemogram) panel - 11/07/16 07:17 Blood leukocytes automated count (number/volume) 9.7 10*3/ uL 4.3-11.0 Blood erythrocytes automated count (number/volume) 4.90 10*6 /uL 4.35-5.85 Venous blood hemoglobin measurement (mass/volume) 14.8 g/dL 11.5-16.0 Blood hematocrit (volume fraction) 42 % 35-52 Automated erythrocyte mean corpuscular volume 86 [foz_us] 80-99 Automated erythrocyte mean corpuscular hemoglobin (mass per erythrocyte) 30 pg 25-34 Automated erythrocyte mean corpuscular hemoglobin concentration measurement ( mass/volume) 35 g/dL 32-36 Automated erythrocyte distribution width ratio 13.4 % 10.0-14.5 Automated blood platelet count (count/volume) 278 10*3/uL 130-400 Automated blood platelet mean volume measurement 9.4 [foz_us ] 7.4-10.4 Comprehensive metabolic panel - 11/07/16 07:17 Serum or plasma sodium measurement (moles/volume) 134 mmol/ L 135-145 Serum or plasma potassium measurement (moles/volume) 3.9 mmol/L 3.6-5.0 Serum or plasma chloride measurement (moles/volume) 104 mmol /L 98-107 Carbon dioxide 20 mmol/L 21-32 Serum or plasma anion gap determination (moles/volume) 10 mmol/L 5-14 Serum or plasma urea nitrogen measurement (mass/volume) 23 mg/dL 7-18 Serum or plasma creatinine measurement (mass/volume) 0.84 mg /dL 0.60-1.30 Serum or plasma urea nitrogen/creatinine mass ratio 27 NRG Serum or plasma creatinine measurement with calculation of estimated glomerular filtration rate > NRG Serum or plasma glucose measurement (mass/volume) 143 mg/dL 70-105 Serum or plasma calcium measurement (mass/volume) 8.9 mg/dL 8.5-10.1 Serum or plasma total bilirubin measurement (mass/volume) 0.6 mg/dL 0.1-1.0 Serum or plasma alkaline phosphatase measurement (enzymatic activity/volume) 87 U/L 40-136 Serum or plasma aspartate aminotransferase measurement (enzymatic activity/ volume) 13 U/L 5-34 Serum or plasma alanine aminotransferase measurement (enzymatic activity/volume ) 14 U/L 0-55 Serum or plasma protein measurement (mass/volume) 6.9 g/dL 6.4-8.2 Serum or plasma albumin measurement (mass/volume) 3.9 g/dL 3.2-4.5 Serum or plasma troponin i.cardiac measurement (mass/volume) - 11/07/16 07:17 Serum or plasma troponin i.cardiac measurement (mass/volume) < ng/mL <0.30 Lipid 1996 panel - 11/07/16 07:17 Serum or plasma triglyceride measurement (mass/volume) 341 mg/dL <150 Serum or plasma cholesterol measurement (mass/volume) 204 mg /dL < 200 Serum or plasma cholesterol in HDL measurement (mass/volume) 38 mg/dL 40-60 Cholesterol in LDL [mass/volume] in serum or plasma by direct assay 112 mg/dL 1-129 Serum or plasma cholesterol in VLDL measurement (mass/volume) 68 mg/dL 5-40 Hemoglobin A1c - 11/07/16 07:17 Hemoglobin A1c 7.0 % 4.5-6.2 Complete blood count (CBC) with automated white blood cell (WBC) differential - 11/17/16 11:42 Blood leukocytes automated count (number/volume) 14.8 10*3/ uL 4.3-11.0 Blood erythrocytes automated count (number/volume) 5.53 10*6 /uL 4.35-5.85 Venous blood hemoglobin measurement (mass/volume) 16.4 g/dL 11.5-16.0 Blood hematocrit (volume fraction) 47 % 35-52 Automated erythrocyte mean corpuscular volume 86 [foz_us] 80-99 Automated erythrocyte mean corpuscular hemoglobin (mass per erythrocyte) 30 pg 25-34 Automated erythrocyte mean corpuscular hemoglobin concentration measurement ( mass/volume) 35 g/dL 32-36 Automated erythrocyte distribution width ratio 13.7 % 10.0-14.5 Automated blood platelet count (count/volume) 369 10*3/uL 130-400 Automated blood platelet mean volume measurement 9.6 [foz_us ] 7.4-10.4 Automated blood neutrophils/100 leukocytes 73 % 42-75 Automated blood lymphocytes/100 leukocytes 21 % 12-44 Blood monocytes/100 leukocytes 4 % 0-12 Automated blood eosinophils/100 leukocytes 2 % 0-10 Automated blood basophils/100 leukocytes 1 % 0-10 Blood neutrophils automated count (number/volume) 10.7 10*3 1.8-7.8 Blood lymphocytes automated count (number/volume) 3.2 10*3 1.0-4.0 Blood monocytes automated count (number/volume) 0.6 10*3 0.0-1.0 Automated eosinophil count 0.2 10*3/uL 0.0-0.3 Automated blood basophil count (count/volume) 0.1 10*3/uL 0.0-0.1 PT panel in platelet poor plasma by coagulation assay - 11/17/16 11:42 Prothrombin time (PT) in platelet poor plasma by coagulation assay 11.4 s 12.2-14.7 INR in platelet poor plasma or blood by coagulation assay 0.9 0.8-1.4 Activated partial thromboplastin time (aPTT) in platelet poor plasma bycoagulation assay - 11/17/16 11:42 Activated partial thromboplastin time (aPTT) in platelet poor plasma bycoagulation assay 31 s 24-35 Comprehensive metabolic panel - 11/17/16 11:42 Serum or plasma sodium measurement (moles/volume) 140 mmol/ L 135-145 Serum or plasma potassium measurement (moles/volume) 4.0 mmol/L 3.6-5.0 Serum or plasma chloride measurement (moles/volume) 103 mmol /L 98-107 Carbon dioxide 21 mmol/L 21-32 Serum or plasma anion gap determination (moles/volume) 16 mmol/L 5-14 Serum or plasma urea nitrogen measurement (mass/volume) 20 mg/dL 7-18 Serum or plasma creatinine measurement (mass/volume) 1.04 mg /dL 0.60-1.30 Serum or plasma urea nitrogen/creatinine mass ratio 19 0-20 Serum or plasma creatinine measurement with calculation of estimated glomerular filtration rate 55 NRG Serum or plasma glucose measurement (mass/volume) 147 mg/dL 70-105 Serum or plasma calcium measurement (mass/volume) 9.5 mg/dL 8.5-10.1 Serum or plasma total bilirubin measurement (mass/volume) 0.6 mg/dL 0.1-1.0 Serum or plasma alkaline phosphatase measurement (enzymatic activity/volume) 95 U/L 40-136 Serum or plasma aspartate aminotransferase measurement (enzymatic activity/ volume) 19 U/L 5-34 Serum or plasma alanine aminotransferase measurement (enzymatic activity/volume ) 14 U/L 0-55 Serum or plasma protein measurement (mass/volume) 8.1 g/dL 6.4-8.2 Serum or plasma albumin measurement (mass/volume) 4.4 g/dL 3.2-4.5 Magnesium - 11/17/16 11:42 Magnesium 1.7 mg/dL 1.8-2.4 Serum or plasma lithium measurement (moles/volume) - 11/17/16 11:42 BNP level < pg/mL <100.0 Serum or plasma troponin i.cardiac measurement (mass/volume) - 11/17/16 11:42 Serum or plasma troponin i.cardiac measurement (mass/volume) < ng/mL <0.30 Myoglobin, serum - 11/17/16 11:42 Myoglobin, serum 36.6 ng/mL 10.0-92.0 Blood manual differential performed detection - 11/17/16 11:42 Blood monocytes/100 leukocytes 4 % NRG Manual blood segmented neutrophils/100 leukocytes 73 % NRG Blood band neutrophils/100 leukocytes 1 % NRG Manual blood lymphocytes/100 leukocytes 21 % NRG Manual eosinophils/100 leukocytes in nose 1 % NRG Manual blood basophils/100 leukocytes 0 % NRG Blood erythrocyte morphology finding identification NORMAL NR Capillary blood glucose measurement by glucometer (mass/volume) - 11/17/16 14: 00 Capillary blood glucose measurement by glucometer (mass/volume) 125 mg/dL 70-110 Comprehensive metabolic panel - 11/17/16 15:05 Serum or plasma sodium measurement (moles/volume) 141 mmol/ L 135-145 Serum or plasma potassium measurement (moles/volume) 3.9 mmol/L 3.6-5.0 Serum or plasma chloride measurement (moles/volume) 104 mmol /L 98-107 Carbon dioxide 21 mmol/L 21-32 Serum or plasma anion gap determination (moles/volume) 16 mmol/L 5-14 Serum or plasma urea nitrogen measurement (mass/volume) 21 mg/dL 7-18 Serum or plasma creatinine measurement (mass/volume) 1.04 mg /dL 0.60-1.30 Serum or plasma urea nitrogen/creatinine mass ratio 20 0-20 Serum or plasma creatinine measurement with calculation of estimated glomerular filtration rate 55 NRG Serum or plasma glucose measurement (mass/volume) 123 mg/dL 70-105 Serum or plasma calcium measurement (mass/volume) 9.0 mg/dL 8.5-10.1 Serum or plasma total bilirubin measurement (mass/volume) 0.7 mg/dL 0.1-1.0 Serum or plasma alkaline phosphatase measurement (enzymatic activity/volume) 87 U/L 40-136 Serum or plasma aspartate aminotransferase measurement (enzymatic activity/ volume) 16 U/L 5-34 Serum or plasma alanine aminotransferase measurement (enzymatic activity/volume ) 14 U/L 0-55 Serum or plasma protein measurement (mass/volume) 7.5 g/dL 6.4-8.2 Serum or plasma albumin measurement (mass/volume) 4.2 g/dL 3.2-4.5 Serum or plasma troponin i.cardiac measurement (mass/volume) - 11/17/16 15:05 Serum or plasma troponin i.cardiac measurement (mass/volume) < ng/mL <0.30 Capillary blood glucose measurement by glucometer (mass/volume) - 11/17/16 21: 09 Capillary blood glucose measurement by glucometer (mass/volume) 172 mg/dL 70-110 Serum or plasma troponin i.cardiac measurement (mass/volume) - 11/17/16 21:39 Serum or plasma troponin i.cardiac measurement (mass/volume) < ng/mL <0.30 Complete blood count (CBC) with automated white blood cell (WBC) differential - 11/18/16 04:44 Blood leukocytes automated count (number/volume) 12.5 10*3/ uL 4.3-11.0 Blood erythrocytes automated count (number/volume) 4.74 10*6 /uL 4.35-5.85 Venous blood hemoglobin measurement (mass/volume) 13.9 g/dL 11.5-16.0 Blood hematocrit (volume fraction) 42 % 35-52 Automated erythrocyte mean corpuscular volume 88 [foz_us] 80-99 Automated erythrocyte mean corpuscular hemoglobin (mass per erythrocyte) 29 pg 25-34 Automated erythrocyte mean corpuscular hemoglobin concentration measurement ( mass/volume) 34 g/dL 32-36 Automated erythrocyte distribution width ratio 13.4 % 10.0-14.5 Automated blood platelet count (count/volume) 269 10*3/uL 130-400 Automated blood platelet mean volume measurement 9.7 [foz_us ] 7.4-10.4 Automated blood neutrophils/100 leukocytes 66 % 42-75 Automated blood lymphocytes/100 leukocytes 26 % 12-44 Blood monocytes/100 leukocytes 4 % 0-12 Automated blood eosinophils/100 leukocytes 3 % 0-10 Automated blood basophils/100 leukocytes 1 % 0-10 Blood neutrophils automated count (number/volume) 8.2 10*3 1.8-7.8 Blood lymphocytes automated count (number/volume) 3.3 10*3 1.0-4.0 Blood monocytes automated count (number/volume) 0.6 10*3 0.0-1.0 Automated eosinophil count 0.4 10*3/uL 0.0-0.3 Automated blood basophil count (count/volume) 0.1 10*3/uL 0.0-0.1 Comprehensive metabolic panel - 11/18/16 04:44 Serum or plasma sodium measurement (moles/volume) 137 mmol/ L 135-145 Serum or plasma potassium measurement (moles/volume) 3.6 mmol/L 3.6-5.0 Serum or plasma chloride measurement (moles/volume) 106 mmol /L 98-107 Carbon dioxide 19 mmol/L 21-32 Serum or plasma anion gap determination (moles/volume) 12 mmol/L 5-14 Serum or plasma urea nitrogen measurement (mass/volume) 20 mg/dL 7-18 Serum or plasma creatinine measurement (mass/volume) 0.94 mg /dL 0.60-1.30 Serum or plasma urea nitrogen/creatinine mass ratio 21 0-20 Serum or plasma creatinine measurement with calculation of estimated glomerular filtration rate > NRG Serum or plasma glucose measurement (mass/volume) 136 mg/dL 70-105 Serum or plasma calcium measurement (mass/volume) 8.1 mg/dL 8.5-10.1 Serum or plasma total bilirubin measurement (mass/volume) 1.1 mg/dL 0.1-1.0 Serum or plasma alkaline phosphatase measurement (enzymatic activity/volume) 93 U/L 40-136 Serum or plasma aspartate aminotransferase measurement (enzymatic activity/ volume) 13 U/L 5-34 Serum or plasma alanine aminotransferase measurement (enzymatic activity/volume ) 12 U/L 0-55 Serum or plasma protein measurement (mass/volume) 6.3 g/dL 6.4-8.2 Serum or plasma albumin measurement (mass/volume) 3.7 g/dL 3.2-4.5 Lipase - 11/18/16 04:44 Lipase 25 U/L 8-78 Lipid 1996 panel - 11/18/16 04:44 Serum or plasma triglyceride measurement (mass/volume) 364 mg/dL <150 Serum or plasma cholesterol measurement (mass/volume) 154 mg /dL < 200 Serum or plasma cholesterol in HDL measurement (mass/volume) 32 mg/dL 40-60 Cholesterol in LDL [mass/volume] in serum or plasma by direct assay 81 mg/dL 1-129 Serum or plasma cholesterol in VLDL measurement (mass/volume) 73 mg/dL 5-40 Hemoglobin A1c - 11/18/16 04:44 Hemoglobin A1c 6.9 % 4.5-6.2 Capillary blood glucose measurement by glucometer (mass/volume) - 11/18/16 11: 20 Capillary blood glucose measurement by glucometer (mass/volume) 187 mg/dL 70-110 Capillary blood glucose measurement by glucometer (mass/volume) - 11/18/16 16: 00 Capillary blood glucose measurement by glucometer (mass/volume) 173 mg/dL 70-110 Capillary blood glucose measurement by glucometer (mass/volume) - 11/18/16 20: 58 Capillary blood glucose measurement by glucometer (mass/volume) 181 mg/dL 70-110 Capillary blood glucose measurement by glucometer (mass/volume) - 11/19/16 05: 19 Capillary blood glucose measurement by glucometer (mass/volume) 148 mg/dL 70-110 Capillary blood glucose measurement by glucometer (mass/volume) - 11/19/16 16: 20 Capillary blood glucose measurement by glucometer (mass/volume) 178 mg/dL 70-110 Capillary blood glucose measurement by glucometer (mass/volume) - 11/19/16 22: 05 Capillary blood glucose measurement by glucometer (mass/volume) 178 mg/dL 70-110 Automated blood complete blood count (hemogram) panel - 11/20/16 03:43 Blood leukocytes automated count (number/volume) 7.7 10*3/ uL 4.3-11.0 Blood erythrocytes automated count (number/volume) 4.10 10*6 /uL 4.35-5.85 Venous blood hemoglobin measurement (mass/volume) 11.9 g/dL 11.5-16.0 Blood hematocrit (volume fraction) 36 % 35-52 Automated erythrocyte mean corpuscular volume 88 [foz_us] 80-99 Automated erythrocyte mean corpuscular hemoglobin (mass per erythrocyte) 29 pg 25-34 Automated erythrocyte mean corpuscular hemoglobin concentration measurement ( mass/volume) 33 g/dL 32-36 Automated erythrocyte distribution width ratio 13.0 % 10.0-14.5 Automated blood platelet count (count/volume) 232 10*3/uL 130-400 Automated blood platelet mean volume measurement 10.2 [foz_ us] 7.4-10.4 Whole blood basic metabolic panel - 11/20/16 03:43 Serum or plasma sodium measurement (moles/volume) 138 mmol/ L 135-145 Serum or plasma potassium measurement (moles/volume) 4.0 mmol/L 3.6-5.0 Serum or plasma chloride measurement (moles/volume) 111 mmol /L 98-107 Carbon dioxide 18 mmol/L 21-32 Serum or plasma anion gap determination (moles/volume) 9 mmol/L 5-14 Serum or plasma urea nitrogen measurement (mass/volume) 21 mg/dL 7-18 Serum or plasma creatinine measurement (mass/volume) 0.78 mg /dL 0.60-1.30 Serum or plasma urea nitrogen/creatinine mass ratio 27 0-20 Serum or plasma creatinine measurement with calculation of estimated glomerular filtration rate > NRG Serum or plasma glucose measurement (mass/volume) 155 mg/dL 70-105 Serum or plasma calcium measurement (mass/volume) 7.9 mg/dL 8.5-10.1 Automated blood complete blood count (hemogram) panel - 11/20/16 09:58 Blood leukocytes automated count (number/volume) 7.2 10*3/ uL 4.3-11.0 Blood erythrocytes automated count (number/volume) 4.23 10*6 /uL 4.35-5.85 Venous blood hemoglobin measurement (mass/volume) 12.4 g/dL 11.5-16.0 Blood hematocrit (volume fraction) 37 % 35-52 Automated erythrocyte mean corpuscular volume 88 [foz_us] 80-99 Automated erythrocyte mean corpuscular hemoglobin (mass per erythrocyte) 29 pg 25-34 Automated erythrocyte mean corpuscular hemoglobin concentration measurement ( mass/volume) 33 g/dL 32-36 Automated erythrocyte distribution width ratio 13.0 % 10.0-14.5 Automated blood platelet count (count/volume) 217 10*3/uL 130-400 Automated blood platelet mean volume measurement 9.7 [foz_us ] 7.4-10.4 Encounters ACCT No. Visit Date/Time Discharge Status Pt. Type Provider Facility Loc./Unit Complaint [id number] 11/17/2016 14:30:00 2016 11:15:00 DIS Inpatient MARIA E RUIZMOSES [facility] ICU CHEST PAIN [id number] 01/13/2016 16:23:00 2015 17:55:00 DIS Emergency CORWIN GARCIA APRN [facility] ER RT SIDE,RT ANKLE PAIN [id number] 05/04/2015 11:08:00 2014 14:20:00 DIS Emergency FELIPE GIL [facility] ER ABD/GROIN/NECK PAIN [id number] 01/26/2015 13:35:00 2014 12:00:00 DIS Outpatient ANDREZ GUERRA MD [facility] WOUNDCARE [id number] 02/13/2015 13:59:00 2014 17:36:00 DIS Emergency VANNESA ARAYA DO [facility] ER RGHT FOOT THIRD TOE PAIN [id number] 01/17/2015 12:18:00 2014 12:45:00 DIS Inpatient SCARLET JORGE MD [facility] SURGICAL CELLULITIS GANGRENE R FOOT 3RD TOE [id number] 03/22/2014 09:22:00 2013 11:25:00 DIS Emergency SIERRA RUSSELL MD [facility] ER ABD PAIN [id number] 09/19/2013 08:50:00 2013 10:59:00 DIS Emergency SIERRA RUSSELL MD [facility] ER ABD PAIN/VOMITING [id number] 04/28/2013 15:14:00 2012 18:38:00 DIS Emergency VANNESA ARAYA DO [facility] ER ABD PAIN [id number] 03/21/2013 18:27:00 2012 12:30:00 DIS Inpatient MARIA E RUIZ MOSES Jr [facility] 4TH PANCREATITIS,COLITIS, UTI [id number] 03/16/2013 17:28:00 2012 23:10:00 DIS Emergency VANNESA ARAYA DO [facility] ER R LEG WEAK [id number] 12/22/2012 09:24:00 2012 12:15:00 DIS Emergency SIERRA RUSSELL MD [facility] ER LOWER BACK PAIN ABD PAIN TROUBLE URINATING [id number] 11/07/2016 07:04:00 ACT Outpatient MOSES SANDERSON DO [facility] LAB LT SHOULDER PAIN [id number] 09/02/2012 16:26:00 Document Registration [id number] 02/02/2012 12:03:00 Document Registration [id number] 01/05/2012 16:53:00 Document Registration [id number] 11/26/2011 14:39:00 Document Registration [id number] 10/08/2011 11:33:00 Document Registration [id number] 10/05/2011 12:41:00 Document Registration [id number] 09/07/2011 17:54:00 Document Registration [id number] 09/05/2011 11:39:00 Document Registration [id number] 08/23/2011 19:57:00 Document Registration [id number] 08/14/2011 23:10:00 Document Registration [id number] 07/23/2011 17:59:00 Document Registration [id number] 07/01/2011 13:12:00 Document Registration [id number] 06/05/2011 11:30:00 Document Registration [id number] 04/06/2011 19:32:00 Document Registration [id number] 02/19/2011 22:09:00 Document Registration [id number] 01/25/2011 15:31:00 Document Registration [id number] 01/15/2011 16:46:00 Document Registration [id number] 12/17/2010 07:53:00 Document Registration [id number] 07/22/2010 23:30:00 Document Registration [id number] 06/02/2010 17:19:00 Document Registration [id number] 03/19/2010 18:16:00 Document Registration
--- OUTSIDE RECORDS SUMMARY | 2016-11-22 13:27 | XMS REPORT | Continuity of Care Document ---
Author Author [facility] Organization [facility] Address Unknown Phone Unavailable Allergies Active Description Code Type Severity Reaction Onset Reported/Identified Relationship to Patient Clinical Status Yes tetracycline [id number] Drug Allergy Moderate N/A 01/16/2015 Yes cefaclor [id number] Drug Allergy Unknown N/A 01/16/2015 Yes cyclobenzaprine HCl [id number] Drug Allergy Unknown N/A 01/16/2015 Yes Penicillins [id number] Drug Allergy Unknown N/A 01/16/2015 Yes sulfamethoxazole [id number] Drug Allergy Unknown N/A 01/16/2015 Yes trimethoprim [id number] Drug Allergy Unknown N/A 01/16/2015 Medications Problems [...] FALL STRIKING OBJECT NEC 09/07/2011 Ot V06.1 [id number], COMBINED [ 10/05/2011 Ot 789.03 ABDOMINAL PAIN, [...] IDIO PERIPH NEURPTHY NOS 03/28/2013 MARIA E RIUZMOSES Ot 401.9 HYPERTENSION NOS 03/28/2013 JOELROXANN MOSES [...] GARCIA APRN Ot Y92.[address] IN [facility] 01/13/2016 CORWIN GARCIA APRN Ot Y99.8 OTHER EXTERNAL CAUSE STATUS 01/13/2016 CORWIN GARCIA APRN Ot 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 01/13/2016 Ot 715.96 [...] GARCIA APRN Ot Y92.[address] IN [facility] ( PRIVATE 01/17/2016 CORWIN GARCIA APRN Ot Y99.8 OTHER EXTERNAL CAUSE STATUS 01/17/2016 CORWIN GARCIA APRN Ot 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 08/14/2016 Ot 715.96 OSTEOARTHROS NOS-L/LEG 08/14/2016 Ot 719.06 JOINT EFFUSION-L/LEG 11/07/2016 Ot 715.96 OSTEOARTHROS NOS-L/LEG 11/07/2016 Ot 719.06 JOINT EFFUSION-L/LEG 11/07/2016 Ot 715.96 OSTEOARTHROS NOS-L/LEG 11/07/2016 Ot 719.06 JOINT EFFUSION-L/LEG 11/15/2016 [facility]ENDER DO, MOSES Norris Ot M25.512 [facility] IN LEFT SH[facility] Ot Z00.00 ENCNTR FOR GENERAL ADULT MEDICAL EXAM W/ 11/17/2016 Ot 715.96 OSTEOARTHROS NOS-L/LEG 11/17/2016 Ot 719.06 JOINT EFFUSION-L/LEG 11/17/2016 GELLENDER DO, MOSES Norris Ot M25.512 PAIN IN LEFT SHOULDER 11/17/[facility] Ot Z00.00 ENCNTR FOR GENERAL ADULT MEDICAL EXAM W11/20/2016 Ot 715.96 OSTEOARTHROS NOS-L/LEG 11/20/2016 Ot 719.06 JOINT EFFUSION-L/LEG 11/20/[facility] Ot M25.512 PAIN IN LEFT SHOULDER 11/20/2016 [facility] DO, MOSSE Norris Ot Z00.00 ENCNTR FOR GENERAL ADULT [...] Status Pt. Type Provider Facility Loc./Unit Complaint [id number] 11/17/2016 14:30:00 2016 11:15:00 DIS Inpatient MARIA E RUIZMOSES [facility] ICU CHEST PAIN [id number] 01/13/2016 16:23:00 2015 17:55:00 DIS Emergency CORWIN GARCIA APRN [facility] ER RT SIDE,RT ANKLE PAIN [id number] 05/04/2015 11:08:00 2014 14:20:00 DIS Emergency FELIPE GIL [facility] ER ABD/GROIN/NECK PAIN [id number] 01/26/2015 13:35:00 2014 12:00:00 DIS Outpatient ANDREZ GUERRA MD [facility] WOUNDCARE [id number] 02/13/2015 13:59:00 2014 17:36:00 DIS Emergency VANNESA ARAYA DO [facility] ER RGHT FOOT THIRD TOE PAIN [id number] 01/17/2015 12:18:00 2014 12:45:00 DIS Inpatient SCARLET JORGE MD [facility] SURGICAL CELLULITIS GANGRENE R FOOT 3RD TOE [id number] 03/22/2014 09:22:00 2013 11:25:00 DIS Emergency SIERRA RUSSELL MD [facility] ER ABD PAIN [id number] 09/19/2013 08:50:00 2013 10:59:00 DIS Emergency SIERRA RUSSELL MD [facility] ER ABD PAIN/VOMITING [id number] 04/28/2013 15:14:00 2012 18:38:00 DIS Emergency VANNESA ARAYA DO [facility] ER ABD PAIN [id number] 03/21/2013 18:27:00 2012 12:30:00 DIS Inpatient MARIA E RUIZ MOSES Jr [facility] 4TH PANCREATITIS,COLITIS, UTI [id number] 03/16/2013 17:28:00 2012 23:10:00 DIS Emergency VANNESA ARAYA DO [facility] ER R LEG WEAK [id number] 12/22/2012 09:24:00 2012 12:15:00 DIS Emergency SIERRA RUSSELL MD [facility] ER LOWER BACK PAIN ABD PAIN TROUBLE URINATING [id number] 11/07/2016 07:04:00 ACT Outpatient MOSES SANDERSON DO [facility] LAB LT SHOULDER PAIN [id number] 09/02/2012 16:26:00 Document Registration [id number] 02/02/2012 12:03:00 Document Registration [id number] 01/05/2012 16:53:00 Document Registration [id number] 11/26/2011 14:39:00 Document Registration [id number] 10/08/2011 11:33:00 Document Registration [id number] 10/05/2011 12:41:00 Document Registration [id number] 09/07/2011 17:54:00 Document Registration [id number] 09/05/2011 11:39:00 Document Registration [id number] 08/23/2011 19:57:00 Document Registration [id number] 08/14/2011 23:10:00 Document Registration [id number] 07/23/2011 17:59:00 Document Registration [id number] 07/01/2011 13:12:00 Document Registration [id number] 06/05/2011 11:30:00 Document Registration [id number] 04/06/2011 19:32:00 Document Registration [id number] 02/19/2011 22:09:00 Document Registration [id number] 01/25/2011 15:31:00 Document Registration [id number] 01/15/2011 16:46:00 Document Registration [id number] 12/17/2010 07:53:00 Document Registration [id number] 07/22/2010 23:30:00 Document Registration [id number] 06/02/2010 17:19:00 Document Registration [id number] 03/19/2010 18:16:00 Document Registration
== END 2016-11-20 11:15 | disposition home or self-care (01) ==
LOC: EDUNIT# 11:14 → ER 11:15 → 4TH 14:30 → ICU 11-19 14:42
PROVIDERS: ADMIT Family Medicine; ATTEND Family Medicine
DX: R07.89 Other chest pain (principal); E11.9 Type 2 diabetes mellitus without complications; I10 Essential (primary) hypertension; F17.210 Nicotine dependence, cigarettes, uncomplicated; E78.5 Hyperlipidemia, unspecified; E66.9 Obesity, unspecified; Z68.41 Body mass index [BMI] 40.0-44.9, adult; Z79.4 Long term (current) use of insulin; Z82.49 Family history of ischemic heart disease and other diseases of the circulatory system
CPT/HCPCS: 36221; 36415; 71010; 80048; 80053; 80061; 82962; 83036; 83690; 83735; 83874; 83880; 84484; 85007; 85025; 85027; 85610; 85730; 93005; 93041; 93306; 93458; 93567; 96374; 96375; 96376; G0378

== ENCOUNTER → 2017-04-16 | Outpatient (CLI) | payer OTHER ==
[~2017-04-16] MED LIST changes: +ASPI-999 PO; +INSU100I29 SQ
--- NOTE | 2017-04-16 10:22 | Diagnostic Imaging Report ---
EXAMINATION: Three views of the lumbar spine. INDICATION: Degenerative changes. FINDINGS: The alignment of the lumbar spine is satisfactory. The vertebral body heights are preserved. There is significant disc height loss at L5/S1 level with vacuum phenomenon. Prominent multilevel anterior osteophytes at mid to lower lumbar spine levels is seen. There is sclerotic changes at the lower lumbar spine facet joints as well. Mild sclerotic degenerative changes in the SI joints also seen. Surgical clips in the upper right side aspect of the abdomen is noted. IMPRESSION: Mid to lower lumbar spine disc and facet degenerative changes. Dictated by: Dictated on workstation # [id number]
--- NOTE | 2017-04-16 10:23 | Diagnostic Imaging Report ---
PA and lateral views of the chest. INDICATION: Chest pain. FINDINGS: The lungs are clear. The heart size is normal. No effusion or pneumothorax. The mediastinum and cameron appear unremarkable. IMPRESSION: Unremarkable exam. Dictated by: Dictated on workstation # [id number]
== END ==
LOC: RAD 09:29
PROVIDERS: ATTEND Surgery
DX: M51.36 Other intervertebral disc degeneration, lumbar region (principal); R07.9 Chest pain, unspecified
CPT/HCPCS: 71020; 72100

== ENCOUNTER 2018-05-21 15:34 | Emergency (ER) | payer SELFPAY ==
[~2018-05-21] VITALS: Ht 157.5 cm; Wt 113.4 kg
[~2018-05-21 15:34] MED LIST changes: -HYDR-3812 PO
--- OUTSIDE RECORDS SUMMARY | 2018-05-21 15:45 | XMS REPORT | Continuity of Care Document ---
Author Author [facility] Organization [facility] Address Unknown Phone Unavailable Allergies Active Description Code Type Severity Reaction Onset Reported/Identified Relationship to Patient Clinical Status Yes CELCOR Drug Allergy N/A N/A Yes PCN Drug Allergy N/A N/A Yes SEPTRA [id number] Drug Allergy N/A N/A Yes BACTRIM UNKNOWN UNKNOWN Yes CEFACLOR UNKNOWN UNKNOWN Yes PENICILLINS MODERATE GI PROBLEMS - VOMITI Yes Ceclor NKMA Mild Rash 12/08/2014 Yes penicillin NKMA Severe rash 12/08/2014 Yes sulfa drugs NKMA Mild Rash 12/08/2014 Yes tetracycline [id number] Drug Allergy Moderate N/A 01/16/2015 Yes cefaclor [id number] Drug Allergy Unknown N/A 01/16/2015 Yes cyclobenzaprine HCl [id number] Drug Allergy Unknown N/A 01/16/2015 Yes Penicillins [id number] Drug Allergy Unknown N/A 01/16/2015 Yes sulfamethoxazole [id number] Drug Allergy Unknown N/A 01/16/2015 Yes trimethoprim [id number] Drug Allergy Unknown N/A 01/16/2015 Medications Medication Packaging Start Date Stop Date Route Dosage Sig GI COCKTAIL SINGLE DOSE LIQ (GRASSHOPPER) ML 03/23/2017 03/23/2017 ONCE&1608 MEPERIDINE SYRINGE INJ 50 MG/CC (DEMEROL SYRINGE) MG 03/23/2017 03/23/2017 ONCE&1630 PROMETHAZINE VIAL INJ 25 MG/CC (PHENERGAN VIAL) MG 03/23/2017 03/23/2017 ONCE&1631 MEPERIDINE SYRINGE INJ 50 MG/CC (DEMEROL SYRINGE) MG 03/23/2017 03/23/2017 ONCE&1716 KETOROLAC VIAL INJ 30 MG/CC (TORADOL VIAL) MG 09/06/2017 09/06/2017 PRN ONCE ORPHENADRINE INJ 60 MG/2CC (NORFLEX) MG 09/06/2017 09/06/2017 ONCE&1420 FENTANYL VIAL INJ 250 MCG/5CC MCG 12/13/2017 12/13/2017 ONCE&2104 FENTANYL VIAL INJ 250 MCG/5CC MCG 12/13/2017 12/13/2017 ONCE&2310 LEVOFLOXACIN TAB 750 MG (LEVAQUIN) MG 12/13/2017 12/13/2017 ONCE&2320 LEVOFLOXACIN TAB 750 MG (LEVAQUIN) MG 12/14/2017 12/20/2017 Daily&0900 Problems Date Dx Coded Attending Type Code [...] SPRAIN OF NECK 09/07/2011 Ot 850.0 CONCUSSION W/ O COMA 09/07/2011 Ot 873.0 OPEN WOUND OF SCALP 09/07/2011 Ot 959.01 HEAD INJURY , NOS 09/07/2011 Ot E000.8 OTHER EXTERNAL CAUSE STATUS 09/07/2011 Ot E849.0 ACCIDENT IN HOME 09/07/2011 Ot E888.1 FALL STRIKING OBJECT NEC 09/07/2011 Ot V06.1 DIPHTHERIA- TETANUS-PERTUSSIS, COMBINED [ 10/05/2011 Ot 789.03 ABDOMINAL PAIN, [...] Ot 789.00 ABDOMINAL PAIN, UNSPECIFIED SITE 12/22/2012 SIERRA RUSSELL MD Ot 250.00 DIAB SHAVONNE WO COMPL, TYPE II OR UNSPEC TY 12/22/2012 SIERRA RUSSELL MD Ot 305.1 TOBACCO USE DISORDER 12/22/2012 SIERRA RUSSELL MD Ot 311 DEPRESSIVE DISORDER NEC 12/22/2012 SIERRA RUSSELL MD Ot 553.20 VENTRAL HERNIA NOS 12/22/2012 SIERRA RUSSELL MD Ot 592.0 CALCULUS OF KIDNEY 12/22/2012 SIERRA RUSSELL MD Ot 724.2 LUMBAGO 12/22/2012 SIERRA RUSSELL MD Ot 789.00 ABDOMINAL PAIN, UNSPECIFIED SITE 12/22/2012 SIERRA RUSSELL MD Ot V13.01 PERSONAL HISTORY OF URINARY CALCULI 03/16/2013 QUIANA VANNESA RUIZ Ot 276.51 DEHYDRATION 03/16/2013 QUIANA VANNESA Ines Ot 276.9 ELECTROLYT/FLUID DIS NEC 03/16/2013 VANNESA ARAYA DO Ot 724.3 SCIATICA 03/16/2013 QUIANA VANNESA RUIZ Ot 780.79 OTH MALAISE FATIGUE 03/16/2013 VANNESA ARAYA DO Ot 847.2 SPRAIN LUMBAR REGION 03/16/2013 VANNESA ARAYA DO Ot E000.8 OTHER EXTERNAL CAUSE STATUS 03/16/2013 VANNESA ARAYA DO Ot E849.[address] NEC 03/16/2013 QUIANAVANNESA Foster DO Ot E888.9 FALL NOS 03/28/2013 MOSES SANDERSON DO Ot 250.00 DIAB SHAVONNE WO COMPL, TYPE II OR UNSPEC TY 03/28/2013 MOSES SANDERSON DO Ot 285.9 ANEMIA NOS 03/28/2013 MOSES SANDERSON DO Ot 311 DEPRESSIVE DISORDER NEC 03/28/2013 MOSES SANDERSON DO Ot 356.9 IDIO PERIPH NEURPTHY NOS 03/28/2013 MOSES SANDERSON DO Ot 401.9 HYPERTENSION NOS 03/28/2013 MOSES SANDERSON DO Ot 458.29 OTHER IATROGENIC HYPOTENSION 03/28/2013 MOSES SANDERSON DO A Ot 530.81 ESOPHAGEAL REFLUX 03/28/2013 MOSES SANDERSON DO Jr Ot 531.90 STOMACH ULCER NOS 03/28/2013 MOSES SANDERSON DO Ot 532.90 DUODENAL ULCER NOS 03/28/2013 MOSES SANDERSON DO Jr Ot 557.9 VASC INSUFF INTEST NOS 03/28/2013 MOSES SANDERSON DO Ot 562.10 DIVERTICULOSIS COLON (W/O MENT OF HEMORR 03/28/2013 MARIA E RUIZMOSES Ot 577.0 ACUTE PANCREATITIS 03/28/2013 MARIA E RUIZMOSES Ot 593.9 RENAL URETERAL DIS NOS 03/28/2013 MARIA E RUIZ MOSES Norris Ot 599.0 URIN TRACT INFECTION NOS 03/28/2013 MARIA E RUIZ MOSES Norris Ot 722.6 DISC DEGENERATION NOS 03/28/2013 MARIA E RUIZMOSES Ot V12.71 PERSONAL HISTORY OF PEPTIC ULCER DISEASE 03/28/2013 MARIA E RUIZMOSES Ot V15.82 HISTORY OF TOBACCO USE 03/28/2013 MARIA E RUIZMOSES Ot V16.0 FAMILY HX-GI MALIGNANCY 03/28/2013 MARIA E RUIZMOSES Ot V58.67 LONG-TERM (CURRENT) USE OF INSULIN 04/28/2013 QUIANA RUIZ VANNESA Ines Ot 338.29 OTHER CHRONIC PAIN 04/28/2013 QUIANA RUIZ VANNESA Ines Ot 531.90 STOMACH ULCER NOS 04/28/2013 QUIANA RUIZ VANNESA Ines Ot 599.0 URIN TRACT INFECTION NOS 04/28/2013 QUIANA RUIZANSHULA Ines Ot 789.00 ABDOMINAL PAIN, UNSPECIFIED SITE [...] INSULIN 07/22/2014 Ot 715.96 07/22/2014 Ot 719.06 12/07/2014 Neo Morrison P Admitting 786.5 12/09/2014 Neo Morrisonja P Final 112.89 OTHER CANDIDIASIS OF OTHER SPECIFIED SITES 12/09/2014 Neo Morrison Karina P Final 250.60 Diabetes mellitus with neurological manifestations, type II or unspecified 12/09/2014 Neo Morrison Karina P Final 272.4 OTHER AND UNSPECIFIED HYPERLIPIDEMIA 12/09/2014 Prince Sarva Karina P Final 275.2 DISORDERS OF MAGNESIUM METABOLISM 12/09/2014 Neo Morrison Karina P Final 276.8 HYPOPOTASSEMIA 12/09/2014 Neo Morrisonja P Final 285.9 ANEMIA, UNSPECIFIED 12/09/2014 Christel Morrisonva Karina P Final 288.60 Leukocytosis, unspecified 12/09/2014 Neo Morrison Karina P Final 357.2 POLYNEUROPATHY IN DIABETES 12/09/2014 Prince Sarva Karina P Final 401.9 UNSPECIFIED ESSENTIAL HYPERTENSION 12/09/2014 Prince Sarva Karina P Final 584.9 Acute Kidney Failure, Unspecified 12/09/2014 Neo Morrison Karina P Reason 786.50 UNSPECIFIED CHEST PAIN 12/09/2014 Prince Sarva Karina P Final 786.59 OTHER CHEST PAIN 12/09/2014 Prince Sarva Karina P Final 790.5 OTHER NONSPECIFIC ABNORMAL SERUM ENZYME LEVELS 12/09/2014 Neo Morrison Karina P Final 995.27 Other drug allergy 12/09/2014 Prince Sarva Karina P Final E942.2 ANTILIPEMIC AND ANTIARTERIOSCLEROTIC DRUGS CAUSING ADVERSE EFFECTS IN THERA 12/09/2014 Neo Morrison Karina P Final V58.67 Long-Term (Current) Use of Insulin 12/09/2014 Christel Morrisonva Karina P Final V58.69 Long-Term (Current) Use of Other Medications 01/16/2015 Ot 715.96 01/16/2015 Ot 719.06 01/18/2015 ANIA KRUSE, SCARLET R Ot 250.70 DIAB W PERIPH CIRC DIS, TYPE II OR UNSPE 01/18/2015 ANIA KRUSE, SCARLET R Ot 272.4 HYPERLIPIDEMIA NEC/NOS 01/18/2015 ANIA KRUSE, SCARLET Balderas Ot 278.00 OBESITY, NOS 01/18/2015 ANIA KRUSE, SCARLET R Ot 305.1 TOBACCO USE DISORDER 01/18/2015 ANIA KRUSE, SCARLET R Ot 311 DEPRESSIVE DISORDER NEC 01/18/2015 SCARLET JORGE MD Ot 401.9 HYPERTENSION NOS 01/18/2015 SCARLET JORGE MD R Ot 530.81 ESOPHAGEAL REFLUX 01/18/2015 SCARLET JORGE MD R Ot 785.4 GANGRENE 01/18/2015 SCARLET JORGE MD Ot V58.67 LONG-TERM (CURRENT) USE OF INSULIN 01/18/2015 SCARLET JORGE MD Ot V85.41 BODY MASS INDEX 40.0-44.9, ADULT 01/19/2015 Ot 715.96 01/19/2015 Ot 719.06 02/13/2015 Ot 715.96 02/13/2015 Ot 719.06 02/13/2015 MARI KRUSE, ANDREZ Gallo Ot 250.70 02/13/2015 MARI KRUSE, ANDREZ Gallo Ot 272.4 02/13/2015 MARI KRUSE, ANDREZ Gallo Ot 311 02/13/2015 MARI KRUSE, ANDREZ Gallo Ot 401.9 02/13/2015 MARI KRUSE, ADNREZ Gallo Ot 707.15 02/13/2015 QUIANA DO, VANNESA K Ot 250.00 DIAB SHAVONNE WO COMPL, TYPE II OR UNSPEC TY 02/13/2015 QUIANA DO, VANNESA K Ot 272.4 HYPERLIPIDEMIA NEC/NOS 02/13/2015 QUIANA DO, VANNESA K Ot 401.9 HYPERTENSION NOS 02/13/2015 QUIANA DO, VANNESA K Ot 681.10 CELLULITIS, TOE NOS 02/13/2015 QUIANA , VANNESA K Ot 682.7 CELLULITIS OF FOOT 02/13/2015 QUIANA , VANNESA K Ot 729.5 PAIN IN LIMB 02/13/2015 QUIANA , VANNESA K Ot V58.67 LONG-TERM (CURRENT) USE OF INSULIN 02/13/2015 QUIANA DO VANNESA K Ot V58.69 OTH MED,LT,CURRENT USE 02/15/2015 [...] STRIKE 01/13/2016 CORWIN GARCIA APRN Ot Y92.009 [facility] PL[address] IN [facility] NON-INSTITUT (PRIVATE 01/13/2016 CORWIN GARCIA APRN Ot Y99.8 OTHER EXTERNAL CAUSE STATUS 01/13/2016 CORWIN GARCIA APRN Ot Z79.4 CLOTH [employer]ING RANGE TENDER (CURRENT) USE OF INSULIN 01/13/2016 Ot 715.96 [...] STRIKE 01/17/2016 CORWIN GARCIA APRN Ot Y92.009 [facility] PL[facility] IN [facility] NON-INSTITUT (PRIVATE 01/17/2016 CORWIN GARCIA APRN Ot Y99.8 OTHER EXTERNAL CAUSE STATUS 01/17/2016 CORWIN GARCIA APRN Ot Z79.4 [employer]OTH [employer]ING RANGE TENDER (CURRENT) USE OF INSULIN 08/14/2016 Ot 715.96 OSTEOARTHROS NOS-L/LEG 08/14/2016 Ot 719.06 JOINT EFFUSION-L/LEG 11/07/2016 Ot 715.96 OSTEOARTHROS NOS-L/LEG 11/07/2016 Ot 719.06 JOINT EFFUSION-L/LEG 11/07/2016 Ot 715.96 OSTEOARTHROS NOS-L/LEG 11/07/2016 Ot 719.06 JOINT EFFUSION-L/LEG 11/15/2016 MOSES SANDERSON DO Ot M25.512 PAIN IN LEFT SHOULDER 11/15/2016 MOSES SANDERSON DO Ot Z00.00 ENCNTR FOR GENERAL ADULT MEDICAL EXAM W11/17/2016 Ot 715.96 OSTEOARTHROS NOS-L/LEG 11/17/2016 Ot 719.06 JOINT EFFUSION-L/LEG 11/17/2016 MOSES SANDERSON DO Ot M25.512 PAIN IN LEFT SHOULDER 11/17/2016 MOSES SANDERSON DO Ot Z00.00 ENCNTR FOR GENERAL ADULT MEDICAL EXAM W/ 11/20/2016 Ot 715.96 OSTEOARTHROS NOS-L/LEG 11/20/2016 Ot 719.06 JOINT EFFUSION-L/LEG 11/20/2016 GELLENDER DO, MOSES Norris Ot M25.512 PAIN IN LEFT SHOULDER 11/20/2016 GELLENDER DO, MOSES Norris Ot Z00.00 ENCNTR FOR GENERAL ADULT MEDICAL EXAM W/ 11/20/2016 MARIA E RUIZ, MOSES Norris Ot E11.9 TYPE 2 DIABETES MELLITUS WITHOUT COMPLIC 11/20/2016 GELLENDER DO, MOSES Norris Ot E66.9 OBESITY, UNSPECIFIED 11/20/2016 GELLENDER DO, MOSES Norris Ot E78.5 HYPERLIPIDEMIA, UNSPECIFIED 11/20/2016 GELLENDER DO, MOSES Norris Ot F17.210 NICOTINE DEPENDENCE, CIGARETTES, UNCOMPL 11/20/2016 ALLANLENDER DO, MOSES Norris Ot I10 ESSENTIAL (PRIMARY) HYPERTENSION 11/20/2016 [facility] Norris Ot R07.89 OTHER CHEST PAIN 11/20/2016 [facility] Norris Ot Z68.41 BODY MASS INDEX (BMI) 40.0-44.9, ADULT 11/20/2016 [facility] MOSES Norris Ot Z79.4 HALF-WAY (CURRENT) USE OF INSULIN 11/20/2016 [facility], MOSES Norris Ot Z82.49 FAMILY HX OF ISCHEM HEART DIS AND OTH DI 03/23/2017 Ever Healy 535.50 UNSPECIFIED GASTRITIS AND GASTRODUODENITIS, WITHOUT MENTION OF HEMORRHAGE 03/23/2017 Ever Healy K29.70 GASTRITIS, UNSPECIFIED, WITHOUT BLEEDING 04/16/2017 Ot 715.96 OSTEOARTHROS NOS-L/LEG 04/16/2017 Ot 719.06 JOINT EFFUSION-L/LEG 04/16/2017 GELLENDER DO, MOSES Norris Ot M25.512 PAIN IN LEFT SHOULDER 04/16/2017 [facility] MOSES Norris Ot Z00.00 ENCNTR FOR GENERAL ADULT MEDICAL EXAM W04/18/2017 MIKKI ARVIZU MD (Sammy) Ot M51.36 OTHER INTERVERTEBRAL DISC DEGENERATION, 04/18/2017 MIKKI ARVIZU MD (RONY) Ot R07.9 CHEST PAIN, UNSPECIFIED 09/06/2017 Ignacio Meyers 840.9 SPRAIN OF UNSPECIFIED SITE OF SHOULDER AND UPPER ARM 09/06/2017 ChichoIgnacio aguila 847.0 NECK SPRAIN 09/06/2017 Ignacio Meyers S16.1XXA STRAIN OF MUSCLE, FASCIA AND TENDON AT NECK LEVEL, INIT 09/06/2017 Ignacio Meyers Johnnie S43.402A UNSPECIFIED SPRAIN OF LEFT SHOULDER JOINT, INITIAL ENCOUNTER 12/13/2017 Mayank Warner W 681.10 CELLULITIS AND ABSCESS OF TOE, UNSPECIFIED 12/13/2017 Mayank Warner W L03.031 CELLULITIS OF RIGHT TOE 12/13/2017 Timmy Mayank A 681.10 CELLULITIS AND ABSCESS OF TOE, UNSPECIFIED 12/13/2017 Timmy Mayank A L03.031 CELLULITIS OF RIGHT TOE Procedures Code Description Performed By Performed On 45.16 ESOPHAGOGASTRODUODENOSCOPY [ EGD] W/CLOSE 03/26/2013 45.25 CLOSED ENDOSCOPIC BIOPSY OF LARGE INTEST 03/26/2013 Results Test Result Range Complete blood count (CBC) with automated white blood cell (WBC) differential - 01/13/16 16:35 Blood leukocytes automated count (number/volume) 11.2 10*3/uL 4.3-11.0 Blood erythrocytes automated count (number/volume) 4.79 10*6/uL 4.35-5.85 Venous blood hemoglobin measurement (mass/volume) 14.4 [...] Automated blood platelet mean volume measurement 9.7 [foz_us] 7.4-10.4 Automated blood neutrophils/100 leukocytes 66 % [...] Serum or plasma sodium measurement (moles/volume) 138 mmol/L 135-145 Serum or plasma potassium measurement (moles/volume) 4.1 mmol/L 3.6-5.0 Serum or plasma chloride measurement (moles/volume) 107 mmol/L 98-107 Carbon dioxide 20 mmol/L 21-32 Serum or plasma anion gap determination (moles/volume) 11 mmol/L 5-14 Serum or plasma urea nitrogen measurement (mass/volume) 11 mg/dL 7-18 Serum or plasma creatinine measurement (mass/volume) 0.83 mg/dL 0.60-1.30 Serum or plasma urea nitrogen/creatinine mass [...] 07:17 Blood leukocytes automated count (number/volume) 9.7 10*3/uL 4.3-11.0 Blood erythrocytes automated count (number/volume) 4.90 10*6/uL 4.35-5.85 Venous blood hemoglobin measurement (mass/volume) 14.8 [...] Automated blood platelet mean volume measurement 9.4 [foz_us] 7.4-10.4 Comprehensive metabolic panel - 11/07/16 07:17 Serum or plasma sodium measurement (moles/volume) 134 mmol/L 135-145 Serum or plasma potassium measurement (moles/volume) 3.9 mmol/L 3.6-5.0 Serum or plasma chloride measurement (moles/volume) 104 mmol/L 98-107 Carbon dioxide 20 mmol/L 21-32 Serum or plasma anion gap determination (moles/volume) 10 mmol/L 5-14 Serum or plasma urea nitrogen measurement (mass/volume) 23 mg/dL 7-18 Serum or plasma creatinine measurement (mass/volume) 0.84 mg/dL 0.60-1.30 Serum or plasma urea nitrogen/creatinine mass [...] or plasma troponin i.cardiac measurement (mass/volume) < ng/ mL <0.30 Lipid 1996 panel - 11/07/16 07:17 Serum or plasma triglyceride measurement (mass/volume) 341 mg/dL <150 Serum or plasma cholesterol measurement (mass/volume) 204 mg/dL < 200 Serum or plasma cholesterol in HDL measurement (mass/volume) 38 mg/ dL 40-60 Cholesterol in LDL [mass/volume] in serum or plasma by direct assay 112 mg/dL 1-129 Serum or plasma cholesterol in VLDL measurement (mass/volume) 68 mg/ dL 5-40 Hemoglobin A1c - 11/07/16 07:17 Hemoglobin A1c 7.0 % 4.5-6.2 Complete blood count (CBC) with automated white blood cell (WBC) differential - 11/17/16 11:42 Blood leukocytes automated count (number/volume) 14.8 10*3/uL 4.3-11.0 Blood erythrocytes automated count (number/volume) 5.53 10*6/uL 4.35-5.85 Venous blood hemoglobin measurement (mass/volume) 16.4 [...] Automated blood platelet mean volume measurement 9.6 [foz_us] 7.4-10.4 Automated blood neutrophils/100 leukocytes 73 % [...] Serum or plasma sodium measurement (moles/volume) 140 mmol/L 135-145 Serum or plasma potassium measurement (moles/volume) 4.0 mmol/L 3.6-5.0 Serum or plasma chloride measurement (moles/volume) 103 mmol/L 98-107 Carbon dioxide 21 mmol/L 21-32 Serum or plasma anion gap determination (moles/volume) 16 mmol/L 5-14 Serum or plasma urea nitrogen measurement (mass/volume) 20 mg/dL 7-18 Serum or plasma creatinine measurement (mass/volume) 1.04 mg/dL 0.60-1.30 Serum or plasma urea nitrogen/creatinine mass ratio 19 0 -20 Serum or plasma creatinine measurement with calculation [...] or plasma troponin i.cardiac measurement (mass/volume) < ng/ mL <0.30 Myoglobin, serum - 11/17/16 11:42 Myoglobin, [...] NRG Blood erythrocyte morphology finding identification NORMAL NRG Capillary blood glucose measurement by glucometer (mass/volume) - 11/17/16 14: 00 Capillary blood glucose measurement by glucometer (mass/volume) 125 mg/dL 70-110 Comprehensive metabolic panel - 11/17/16 15:05 Serum or plasma sodium measurement (moles/volume) 141 mmol/L 135-145 Serum or plasma potassium measurement (moles/volume) 3.9 mmol/L 3.6-5.0 Serum or plasma chloride measurement (moles/volume) 104 mmol/L 98-107 Carbon dioxide 21 mmol/L 21-32 Serum or plasma anion gap determination (moles/volume) 16 mmol/L 5-14 Serum or plasma urea nitrogen measurement (mass/volume) 21 mg/dL 7-18 Serum or plasma creatinine measurement (mass/volume) 1.04 mg/dL 0.60-1.30 Serum or plasma urea nitrogen/creatinine mass ratio 20 0 -20 Serum or plasma creatinine measurement with calculation [...] or plasma troponin i.cardiac measurement (mass/volume) < ng/ mL <0.30 Capillary blood glucose measurement by glucometer (mass/volume) - 11/17/16 21: 09 Capillary blood glucose measurement by glucometer (mass/volume) 172 mg/dL 70-110 Serum or plasma troponin i.cardiac measurement (mass/volume) - 11/17/16 21:39 Serum or plasma troponin i.cardiac measurement (mass/volume) < ng/ mL <0.30 Complete blood count (CBC) with automated white blood cell (WBC) differential - 11/18/16 04:44 Blood leukocytes automated count (number/volume) 12.5 10*3/uL 4.3-11.0 Blood erythrocytes automated count (number/volume) 4.74 10*6/uL 4.35-5.85 Venous blood hemoglobin measurement (mass/volume) 13.9 [...] Automated blood platelet mean volume measurement 9.7 [foz_us] 7.4-10.4 Automated blood neutrophils/100 leukocytes 66 % [...] Serum or plasma sodium measurement (moles/volume) 137 mmol/L 135-145 Serum or plasma potassium measurement (moles/volume) 3.6 mmol/L 3.6-5.0 Serum or plasma chloride measurement (moles/volume) 106 mmol/L 98-107 Carbon dioxide 19 mmol/L 21-32 Serum or plasma anion gap determination (moles/volume) 12 mmol/L 5-14 Serum or plasma urea nitrogen measurement (mass/volume) 20 mg/dL 7-18 Serum or plasma creatinine measurement (mass/volume) 0.94 mg/dL 0.60-1.30 Serum or plasma urea nitrogen/creatinine mass ratio 21 0 -20 Serum or plasma creatinine measurement with calculation [...] Serum or plasma cholesterol measurement (mass/volume) 154 mg/dL < 200 Serum or plasma cholesterol in HDL measurement (mass/volume) 32 mg/ dL 40-60 Cholesterol in LDL [mass/volume] in serum or plasma by direct assay 81 mg/dL 1-129 Serum or plasma cholesterol in VLDL measurement (mass/volume) 73 mg/ dL 5-40 Hemoglobin A1c - 11/18/16 04:44 Hemoglobin [...] 03:43 Blood leukocytes automated count (number/volume) 7.7 10*3/uL 4.3-11.0 Blood erythrocytes automated count (number/volume) 4.10 10*6/uL 4.35-5.85 Venous blood hemoglobin measurement (mass/volume) 11.9 [...] Automated blood platelet mean volume measurement 10.2 [foz_us] 7.4-10.4 Whole blood basic metabolic panel - 11/20/16 03:43 Serum or plasma sodium measurement (moles/volume) 138 mmol/L 135-145 Serum or plasma potassium measurement (moles/volume) 4.0 mmol/L 3.6-5.0 Serum or plasma chloride measurement (moles/volume) 111 mmol/L 98-107 Carbon dioxide 18 mmol/L 21-32 Serum or plasma anion gap determination (moles/volume) 9 mmol/L 5-14 Serum or plasma urea nitrogen measurement (mass/volume) 21 mg/dL 7-18 Serum or plasma creatinine measurement (mass/volume) 0.78 mg/dL 0.60-1.30 Serum or plasma urea nitrogen/creatinine mass ratio 27 0 -20 Serum or plasma creatinine measurement with calculation of estimated glomerular filtration rate > NRG Serum or plasma glucose measurement (mass/volume) 155 mg/dL 70-105 Serum or plasma calcium measurement (mass/volume) 7.9 mg/dL 8.5-10.1 Automated blood complete blood count (hemogram) panel - 11/20/16 09:58 Blood leukocytes automated count (number/volume) 7.2 10*3/uL 4.3-11.0 Blood erythrocytes automated count (number/volume) 4.23 10*6/uL 4.35-5.85 Venous blood hemoglobin measurement (mass/volume) 12.4 [...] Automated blood platelet mean volume measurement 9.7 [foz_us] 7.4-10.4 Urinalysis - 03/23/17 16:08 Icotest N/A Negative Urine Volume Urine Volume Sufficient (10mL) Urine Yeast No Yeast present Urine-Appearance Slightly Cloudy Clear Urine-Bacteria 1+ Urine-Bilirubin Negative Negative Urine-Blood Negative Negative Urine-Color Yellow Colorless-Lt. Yellow Urine-Epithelial Cells 10-20/HPF Urine-Glucose Negative Negative Urine-Ketones Trace Negative Urine-Leukocytes Negative Negative Urine-Nitrite Negative Negative Urine-Other Urine Saved if Culture Needed (48hrs from time of collection) Urine-pH 5.5 5-8.5 Urine-Protein 1+ Negative Urine-RBC Negative Urine-Specific [place] 1.025 1.000-1.030 Urine-WBC Negative Urobilinogen 0.2 E.U./dL 0.2-1.0 EKG - 09/06/17 14:20 EKG Complete BMP - 12/13/17 21:08 Anion Gap 20 6-14 BUN 19 mg/dL 5-25 Calcium 9.2 mg/dL 8.3-10.4 Chloride 104 mmol/L 95-114 CO2 18 mEq/L 22-33 Creat 0.88 mg/dL 0.50-1.50 eGFR 66 mL/min/1.73m2 >59 Glucose 178 mg/dL 70-110 Osmo 291 280-295 Potassium 3.7 mmol/L 3.5-5.3 Sodium 138 mmol/L 134-148 Other Culture - 12/13/17 23:18 PRELIM CULTURE RESULTS No Growth 24 hours FINAL CULTURE RESULTS No Growth 48 hours MEDIA PLATED Setup at 00:40 on 12/14/2017 Encounters ACCT No. Visit Date/Time Discharge Status Pt. Type Provider Facility Loc./Unit Complaint [id number] 04/16/2017 09:29:00 04/16/2017 23:59:59 CLS Outpatient MIKKI ARVIZU MD (DDU) [facility] RAD DDU [id number] 11/17/2016 14:30:00 11/20/2016 11:15:00 DIS Inpatient MOSES SANDERSON DO [facility] ICU CHEST PAIN [id number] 11/07/2016 07:04:00 11/07/2016 23:59:59 CLS Outpatient MOSES SANDERSON DO [facility] LAB LT SHOULDER PAIN [id number] 01/13/2016 16:23:00 01/13/2016 17:55:00 DIS Emergency CORWIN GARCIA APRN [facility] ER RT SIDE,RT ANKLE PAIN [id number] 05/04/2015 11:08:00 05/04/2015 14:20:00 DIS Emergency FELIPE GIL [facility] ER ABD/GROIN/NECK PAIN [id number] 01/26/2015 13:35:00 02/22/2015 12:00:00 DIS Outpatient ANDREZ GUERRA MD [facility] WOUNDCARE [id number] 02/13/2015 13:59:00 02/13/2015 17:36:00 DIS Emergency VANNESA ARAYA DO [facility] ER RGHT FOOT THIRD TOE PAIN [id number] 01/17/2015 12:18:00 01/18/2015 12:45:00 DIS Inpatient SCARLET JORGE MD [facility] SURGICAL CELLULITIS GANGRENE R FOOT 3RD TOE [id number] 03/22/2014 09:22:00 03/22/2014 11:25:00 DIS Emergency SIERRA RUSSELL MD [facility] ER ABD PAIN [id number] 09/19/2013 08:50:00 09/19/2013 10:59:00 DIS Emergency SIERRA RUSSELL MD [facility] ER ABD PAIN/VOMITING [id number] 04/28/2013 15:14:00 04/28/2013 18:38:00 DIS Emergency VANNESA ARAYA DO [facility] ER ABD PAIN [id number] 03/21/2013 18:27:00 03/28/2013 12:30:00 DIS Inpatient MOSES SANDERSON DO [facility] 4TH PANCREATITIS,COLITIS , UTI [id number] 03/16/2013 17:28:00 03/16/2013 23:10:00 DIS Emergency VANNESA ARAYA DO [facility] ER R LEG WEAK [id number] 12/22/2012 09:24:00 12/22/2012 12:15:00 DIS Emergency SIERRA RUSSELL MD [facility] ER LOWER BACK PAIN ABD PAIN TROUBLE URINATING [id number] 09/02/2012 16:26:00 Document Registration [id number] 02/02/2012 12:03:00 Document Registration [id number] 01/05/2012 16:53:00 Document Registration [id number] 11/26/2011 14:39:00 Document Registration [id number] 10/08/2011 11:33:00 Document Registration [id number] 10/05/2011 12:41:00 Document Registration [id number] 09/07/2011 17:54:00 Document Registration [id number] 09/05/2011 11:39:00 Document Registration [id number] 08/23/2011 19:57:00 Document Registration [id number] 08/14/2011 23:10:00 Document Registration [id number] 07/23/2011 17:59:00 Document Registration [id number] 07/01/2011 13:12:00 Document Registration [id number] 06/05/2011 11:30:00 Document Registration [id number] 04/06/2011 19:32:00 Document Registration [id number] 02/19/2011 22:09:00 Document Registration [id number] 01/25/2011 15:31:00 Document Registration [id number] 01/15/2011 16:46:00 Document Registration [id number] 12/17/2010 07:53:00 Document Registration [id number] 07/22/2010 23:30:00 Document Registration [id number] 06/02/2010 17:19:00 Document Registration [id number] 03/19/2010 18:16:00 Document Registration [id number] 12/13/2017 19:56:00 12/13/2017 23:30:00 DIS Outpatient [facility] ER [id number] 09/06/2017 14:02:00 09/06/2017 15:12:00 DIS [facility] [id number] 03/23/2017 15:43:00 03/23/2017 17:26:00 [id number] 03/23/2017 16:09:57 Document Registration [id number] 12/07/2014 16:04:00 12/08/2014 14:51:[address] [id number] [id number] 12/15/2014 09:43:51 12/15/2014 09:43:51 DIS Outpatient [id number] 08/28/2014 11:39:00 Document Registration
[2018-05-21 16:27] LABS: BILIRUBIN,URINE NEGATIVE (NEGATIVE); CLARITY,URINE CLEAR; COLOR,URINE YELLOW; GLUCOSE, URINE (UA) NEGATIVE (NEGATIVE); KETONES,URINE NEGATIVE (NEGATIVE); LEUKOCYTE ESTERASE ,URINE 1+ (NEGATIVE); NITRITE,URINE NEGATIVE (NEGATIVE); PH,URINE 6 (5-9); PROTEIN,URINE NEGATIVE (NEGATIVE); UROBILINOGEN,URINE 1 MG/DL (NORMAL)
[2018-05-21 16:37] LABS: BACTERIA,URINE LARGE /HPF
[2018-05-21] MEDS ORDERED: NS IV 1000 ML 1,000 ML IV SCH (16:51)
--- NOTE | 2018-05-21 16:59 | ED Abdominal Pain ---
General Chief Complaint: Abdominal/GI Problems Stated Complaint: ABD PAIN Nursing Triage Note: pt presents to ed accompanied by with complaints of painful wounds on abdomen. Pt also reports tendernes to bilateral lower abdomen. reports pain is worse when laying down. pt states pain woke her up out of her sleep yesterday night. pt states she has had similar pain in the past about 3 months ago. Sepsis Screen: No Definite Risk Source of Information: Patient, Spouse Exam Limitations: No Limitations History of Present Illness Date Seen by Provider: May 21, 2018 Time Seen by Provider: 16:49 Initial Comments Patient presents to ER by private conveyance with chief complaint of some abdominal wall pain especially centered around her umbilical hernia repair from years ago in [place]. She's had some chills but no fever nausea vomiting diarrhea or constipation. Last week she had fever chills nausea vomiting and diarrhea which she attributed to a viral gastritis. Historically she's had a C- section and umbilical hernia repair many years ago in [place]. She's not having any dysuria discharge today. She saw her primary care doctor, Dr. Marino about a month ago for the similar symptoms of abdominal wall pain and formation of little red lines at the site of injection and he told her he thought it was hematomas forming from her insulin injection. Her last A1c was 7. She rates her pain as a 5 out of 10 at rest and a 10 out of 10 on movement. For her peripheral neuropathy she uses tramadol and she says between the tramadol, Tylenol, Motrin and it has not helped her pain today. Allergies and Home Medications Allergies Coded Allergies: tetracycline (Verified Allergy, Intermediate, 01/16/15) Penicillins (Verified Allergy, Unknown, 01/16/15) cefaclor (Verified Allergy, Unknown, 01/16/15) sulfamethoxazole (Verified Allergy, Unknown, 01/16/15) trimethoprim (Verified Allergy, Unknown, 01/16/15) cyclobenzaprine HCl (Verified Adverse Reaction, Unknown, 01/16/15) causes pt to be very agitated Home Medications Aspirin 81 Mg Tab.chew, 81 MG PO DAILY, (Reported) Insulin Detemir 100 Unit/1 Ml Insuln.pen, 48 UNITS SQ BID, (Reported) Lisinopril 20 Mg Tablet, 40 MG PO DAILY, (Reported) Tramadol Hcl 50 Mg Tab, 100 MG PO TID, (Reported) TAKES 2 (50 MG) TABLETS Patient Home Medication List Home Medication List Reviewed: Yes Review of Systems Review of Systems Constitutional: No chills, No diaphoresis EENTM: No Blurred Vision, No Double Vision Respiratory: Denies Cough, Denies Shortness of Air Cardiovascular: Denies Chest Pain, Denies Lightheadedness Gastrointestinal: Denies Abdomen Distended; Abdominal Pain; Denies Blood Streaked Stools, Denies Constipated, Denies Diarrhea, Denies Nausea, Denies Poor Fluid Intake, Denies Vomiting Genitourinary: Denies Burning, Denies Discharge Musculoskeletal: No back pain, No joint pain Past Nisadjl-Mdavzf-Svonxr Hx Patient Social History Alcohol Use: Rarely Uses Recreational Drug Use: No Smoking Status: Current Everyday Smoker Type Used: Cigarettes Recent Foreign Travel: No Contact w/Someone Who Travel: No Recent Infectious Disease Expo: No Recent Hopitalizations: No Immunizations Up To Date Tetanus Booster (TDap): Unknown Seasonal Allergies Seasonal Allergies: No Past Medical History Surgeries: Yes (EGD/COLONOSCOPY, UMBILICAL HERNIA, CARPAL TUNNEL, heart cath- no stent) Abdominal, Section, Gallbladder, Orthopedic Respiratory: No Cardiac: Yes High Cholesterol, Hypertension Neurological: Yes Neuropathy Reproductive Disorders: 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 Genitourinary: No Kidney Stones, UTI-Chronic Gastrointestinal: Yes (CHRONIC ABDOMINAL PAIN) Gastroesophageal Reflux, Gastrointestinal Bleed, Pancreatitis, Ulcer Musculoskeletal: Yes (CHRONIC GENERALIZED PAIN, FREQUENT FALLS) Degenerate Disk Disease, Arthritis, Chronic Back Pain Endocrine: Yes Diabetes, Insulin dep HEENT: No Cancer: No Psychosocial: Yes Depression Integumentary: Yes (DIABETIC FOOT ULCERS/CELLULITIS) Blood Disorders: No Adverse Reaction/Blood Tranf: No Family Medical History Cardiovascular disease 19 FATHER Colon cancer 19 FATHER Gastroenteritis Kidney disease G8 SISTER (kidney cancer) Neoplasm G8 SISTER (ovarian cancer) No Pertinent Family Hx Physical Exam Vital Signs Vital Signs - First Documented 05/21/18 15:41 Temp 98.7 Pulse 94 Resp 16 B/P (MAP) 194/73 (113) Pulse Ox 96 Capillary Refill : Less Than 3 Seconds Height/Weight/BMI Height: 5'2.00" Weight: 250lbs. 0.0oz. [id number]; 43.4 BMI Method:Stated General Appearance: WD/WN, mild distress HEENT: PERRL/EOMI, pharynx normal Respiratory: chest non-tender, lungs clear, normal breath sounds, no respiratory distress, no accessory muscle use Cardiovascular: normal peripheral pulses, regular rate, rhythm Gastrointestinal: normal bowel sounds, soft, tenderness (diffusely related to erythematous, ecchymotic area of her anterior abdomen where she's been injecting her insulin. There is no areas of fluctuance, only mild small little papules of induration about 1 cm or less on either side of the umbilicus 2. The umbilical fossae is palpated and no hernia, mass or tumor is palpable.) Neurologic/Psychiatric: alert, oriented x 3 Skin: ecchymosis (anterior abdominal wall) Progress/Results/Core Measures Results/Orders Lab Results Laboratory Tests Test 05/21/18 16:20 05/21/18 17:10 Range/Units Urine Color YELLOW Urine Clarity CLEAR Urine pH 6 5-9 Urine Specific [place] 1.020 1.016-1.022 Urine Protein NEGATIVE NEGATIVE Urine Glucose (UA) NEGATIVE NEGATIVE Urine Ketones NEGATIVE NEGATIVE Urine Nitrite NEGATIVE NEGATIVE Urine Bilirubin NEGATIVE NEGATIVE Urine Urobilinogen 1 NORMAL MG/DL Urine Leukocyte Esterase 1+ H NEGATIVE Urine RBC (Auto) NEGATIVE NEGATIVE Urine RBC NONE /HPF Urine WBC 5-10 H /HPF Urine Squamous Epithelial Cells 2-5 /HPF Urine Crystals NONE /LPF Urine Bacteria LARGE H /HPF Urine Casts NONE /LPF Urine Mucus NEGATIVE /LPF Urine Culture Indicated YES White Blood Count 8.6 4.3-11.0 10^3/uL Red Blood Count 4.43 4.35-5.85 10^6/uL Hemoglobin 13.9 11.5-16.0 G/DL Hematocrit 39 35-52 % Mean Corpuscular Volume 88 80-99 FL Mean Corpuscular Hemoglobin 31 25-34 PG Mean Corpuscular Hemoglobin Concent 36 32-36 G/DL Red Cell Distribution Width 13.5 10.0-14.5 % Platelet Count 236 130-400 10^3/uL Mean Platelet Volume 9.9 7.4-10.4 FL Neutrophils (%) (Auto) 60 42-75 % Lymphocytes (%) (Auto) 29 12-44 % Monocytes (%) (Auto) 5 0-12 % Eosinophils (%) (Auto) 6 0-10 % Basophils (%) (Auto) 1 0-10 % Neutrophils # (Auto) 5.2 1.8-7.8 X 10^3 Lymphocytes # (Auto) 2.5 1.0-4.0 X 10^3 Monocytes # (Auto) 0.4 0.0-1.0 X 10^3 Eosinophils # (Auto) 0.5 H 0.0-0.3 10^3/uL Basophils # (Auto) 0.0 0.0-0.1 10^3/uL Sodium Level 137 135-145 MMOL/L Potassium Level 3.8 3.6-5.0 MMOL/L Chloride Level 105 98-107 MMOL/L Carbon Dioxide Level 22 21-32 MMOL/L Anion Gap 10 5-14 MMOL/L Blood Urea Nitrogen 19 H 7-18 MG/DL Creatinine 0.90 0.60-1.30 MG/DL Estimat Glomerular Filtration Rate > 60 BUN/Creatinine Ratio 21 Glucose Level 153 H 70-105 MG/DL Calcium Level 9.0 8.5-10.1 MG/DL Corrected Calcium 9.2 8.5-10.1 MG/DL Total Bilirubin 0.3 0.1-1.0 MG/DL Aspartate Amino Transf (AST/SGOT) 15 5-34 U/L Alanine Aminotransferase (ALT/SGPT) 14 0-55 U/L Alkaline Phosphatase 70 40-136 U/L C-Reactive Protein High Sensitivity 0.61 H 0.00-0.50 MG/DL Total Protein 6.6 6.4-8.2 GM/DL Albumin 3.8 3.2-4.5 GM/DL My Orders Orders - SEBASTIAN MARIE Ua Culture If Indicated (05/21/18 16:12) Urine Culture (05/21/18 16:20) Cbc With Automated Diff (05/21/18 16:51) Comprehensive Metabolic Panel (05/21/18 16:51) Hs C Reactive Protein (05/21/18 16:51) Ketorolac Injection (Toradol Injection) (05/21/18 17:00) Saline Lock/Iv-Start (05/21/18 16:51) Ns Iv 1000 Ml (Sodium Chloride 0.9%) (05/21/18 16:51) Ct Abdomen/Pelvis W (05/21/18 17:55) Fentanyl Injection (Sublimaze Injection (05/21/18 18:00) Nitrofurantoin Capsule,Macro (Macrobid C (05/21/18 18:00) Medications Given in ED Current Medications Medications Dose Ordered Sig/Eva Route Start Time Stop Time Status Last Admin Dose Admin Ketorolac Tromethamine 30 mg ONCE ONCE IVP 05/21/18 17:00 05/21/18 17:01 DC 05/21/18 17:16 30 MG Vital Signs/I&O 05/21/18 15:41 Temp 98.7 Pulse 94 Resp 16 B/P (MAP) 194/73 (113) Pulse Ox 96 Blood Pressure Mean: 113 Progress Progress Note : Time: 17:56 Progress Note Toradol gave some relief but the patient is still having tears with her pain and insists that it is worse on movement. Because of her body habitus is difficult to completely rule out any possibility of a abdominal wall hernia. Her labs and vital signs are aseptic. She does appear to have a UTI so we'll go ahead and treat her with a dose of macrobid. It's likely that she has adhesions given the chronic nature of her pain however we will give her 75 g of fentanyl and offer a CT scan. We've also offered her outpatient follow-up with general surgery and she would prefer to do that over getting a CT scan today. Diagnostic Imaging Diagonstic Imaging: CT (with IV contrast) Plain Films/CT/US/NM/MRI: abdomen, pelvis Reviewed: Reviewed by Me Departure Impression Primary Impression: Abdominal wall pain Disposition: 01 HOME, SELF-CARE Condition: Improved Departure-Patient Inst. Decision time for Depature: 18:09 Referrals: BRITTNEY SHETH RICHARD A DO NO,LOCAL PHYSICIAN (PCP) Primary Care Physician Patient Instructions: Lysis of Adhesions (DC) Add. Discharge Instructions: Continue use your Tylenol, Motrin, pain medicines and/or warmth for your abdominal wall pain. Tomorrow call Dr. Sheth at his clinic and request an appointment to follow-up. You can also follow up with primary care. If you begin to have a fever, intractable nausea vomiting or pain then you should return to the nearest ER for further evaluation. supervisor malt house the Macrobid and take one capsule twice a day for the next week. All discharge instructions reviewed with patient and/or family. Voiced understanding. Scripts Nitrofurantoin Monohyd/M-Cryst (Macrobid 100 mg Capsule) 100 Mg Capsule 1 TAB PO BID for 7 Days, #14 CAP 0 Refills Prov: FRANK,SEBASTIAN J 05/21/18 Copy Copies To 1: BRITTNEY SHETH DO SEBASITAN MARIE May 21, 2018 16:59
[2018-05-21] MEDS ORDERED: KETOROLAC 30 MG/ML VIAL IVP ONE (17:00)
[2018-05-21 17:23] LABS: BASOPHILS % (AUTO) 1 % (0-10); EOSINOPHILS # (AUTO) 0.5 10^3/uL (0.0-0.3); EOSINOPHILS % (AUTO) 6 % (0-10); HEMATOCRIT 39 % (35-52); HEMOGLOBIN 13.9 G/DL (11.5-16.0); LYMPHOCYTES # (AUTO) 2.5 X 10^3 (1.0-4.0); LYMPHOCYTES % (AUTO) 29 % (12-44); MEAN CORPUSCULAR HEMOGLOBIN 31 PG (25-34); MEAN CORPUSCULAR HGB CONC 36 G/DL (32-36); MEAN CORPUSCULAR VOLUME 88 FL (80-99); MEAN PLATELET VOLUME 9.9 FL (7.4-10.4); MONOCYTES # (AUTO) 0.4 X 10^3 (0.0-1.0); MONOCYTES % (AUTO) 5 % (0-12); NEUTROPHILS # (AUTO) 5.2 X 10^3 (1.8-7.8); NEUTROPHILS % (AUTO) 60 % (42-75); PLATELET COUNT 236 10^3/uL (130-400); RED BLOOD COUNT 4.43 10^6/uL (4.35-5.85); RED CELL DISTRIBUTION WIDTH 13.5 % (10.0-14.5); WHITE BLOOD COUNT 8.6 10^3/uL (4.3-11.0)
[2018-05-21 17:42] LABS: ALANINE AMINOTRANSFERASE 14 U/L (0-55); ALBUMIN 3.8 GM/DL (3.2-4.5); ALKALINE PHOSPHATASE 70 U/L (40-136); BILIRUBIN,TOTAL 0.3 MG/DL (0.1-1.0); BUN/CREATININE RATIO 21; CARBON DIOXIDE 22 MMOL/L (21-32); CHLORIDE 105 MMOL/L (98-107); GFR ESTIMATED > 60; GLUCOSE 153 MG/DL (70-105); POTASSIUM 3.8 MMOL/L (3.6-5.0); SODIUM 137 MMOL/L (135-145); TOTAL PROTEIN 6.6 GM/DL (6.4-8.2)
[2018-05-21] MEDS ORDERED: NITROFURANTOIN 100 MG (MACROBID) CAPSULE PO ONE (18:00)
[2018-05-21] MEDS ORDERED: fentaNYL INJECTION 100 MCG/2 ML AMP IVP ONE (18:00)
[2018-05-21] MEDS ORDERED: NITR-65 PO (18:11)
[2018-05-21] MEDS ORDERED: RECEIVED CONTRAST (Hold Metformin) IV SCH (18:15)
[2018-05-21] MEDS ORDERED: NS 100 ML (IVPB) BAG IV ONE (18:15)
[2018-05-21] MEDS ORDERED: IOHEXOL 350 MG/ML 100 ML (OMNIPAQUE 350) VIAL IV ONE (18:15)
[2018-05-21 18:18] VITALS: BP 194/73
== END 2018-05-21 18:18 | disposition home or self-care (01) ==
LOC: EDUNIT# 15:34 → ER 15:36
DX: R10.9 Unspecified abdominal pain (principal); E78.00 Pure hypercholesterolemia, unspecified; I10 Essential (primary) hypertension; K21.9 Gastro-esophageal reflux disease without esophagitis; F32.9 Major depressive disorder, single episode, unspecified; E11.9 Type 2 diabetes mellitus without complications; F17.210 Nicotine dependence, cigarettes, uncomplicated; Z87.442 Personal history of urinary calculi; Z87.440 Personal history of urinary (tract) infections; Z91.81 History of falling; Z95.9 Presence of cardiac and vascular implant and graft, unspecified; Z88.1 Allergy status to other antibiotic agents; Z82.49 Family history of ischemic heart disease and other diseases of the circulatory system; Z80.41 Family history of malignant neoplasm of ovary; Z80.0 Family history of malignant neoplasm of digestive organs; Z88.0 Allergy status to penicillin; Z88.2 Allergy status to sulfonamides; Z88.8 Allergy status to other drugs, medicaments and biological substances; Z98.890 Other specified postprocedural states; Z87.19 Personal history of other diseases of the digestive system; Z79.82 Long term (current) use of aspirin; Z79.4 Long term (current) use of insulin
CPT/HCPCS: 36415; 80053; 81000; 85025; 86141; 87088

== ENCOUNTER → 2019-02-25 | Outpatient (CLI) | payer SELFPAY | LOC: LAB 12:31 | PROVIDERS: ATTEND Family Medicine | DX: E11.9 Type 2 diabetes mellitus without complications (principal) | CPT/HCPCS: 36415; 83036 ==

== ENCOUNTER → 2019-03-04 | Outpatient (CLI) | payer OTHER ==
--- NOTE | 2019-03-04 10:44 | Diagnostic Imaging Report ---
INDICATION: Hip pain TECHNIQUE: 2 views of the right hip. CORRELATION STUDY: None FINDINGS: Images of the hip demonstrate no evidence for acute fracture. Alignment is anatomic. The femoral head acetabular relationship is unremarkable. The bony trabecular pattern is intact. IMPRESSION: 1. Negative for acute bony abnormality of the right hip. Dictated by: Dictated on workstation # [id number]
--- NOTE | 2019-03-04 10:45 | Diagnostic Imaging Report ---
INDICATION: Back pain. Symptoms for a long time, hurts to walk. No known injury. TECHNIQUE: AP, Lateral and Spot imaging of the lumbar spine CORRELATION STUDY: 04/16/2017 FINDINGS: Very mild rightward curvature of the lumbar spine apex L2. Alignment otherwise anatomic. Lumbar vertebral body heights maintained. Marked disc space narrowing at L5-S1 level with endplate sclerosis and osteophyte. Remaining disc spaces fairly well preserved. Mild hypertrophic facet arthropathy at L4-L5 and L5-S1 level. Mild sclerosis of the SI joints. Presumably cholecystectomy clips right upper quadrant. Unchanged small calcification mid pelvis. IMPRESSION: Mid to lower lumbar spine degenerative changes, relatively stable from prior study. Dictated by: Dictated on workstation # [id number]
--- NOTE | 2019-03-04 10:46 | Diagnostic Imaging Report ---
INDICATION: Knee pain symptoms for a long time. Hurts to walk. No known trauma. TECHNIQUE: 2 views of the right knee CORRELATION STUDY: None FINDINGS: Mild joint space narrowing medial compartment with mild marginal osteophyte formation. Lateral compartment better preserved. There is suggestion of narrowing of the patellofemoral compartment. Soft tissues are unremarkable. IMPRESSION: 1. Negative for acute bony abnormality of the knee. Multi compartment degenerative changes most pronounced at the medial and patellofemoral compartment. Dictated by: Dictated on workstation # [id number]
== END ==
LOC: RAD 09:43
PROVIDERS: ATTEND Surgery
DX: M17.11 Unilateral primary osteoarthritis, right knee (principal); M47.816 Spondylosis without myelopathy or radiculopathy, lumbar region
CPT/HCPCS: 72100; 73502; 73560

== ENCOUNTER → 2020-03-09 | Outpatient (CLI) | payer SELFPAY ==
[~2020-03-09] MED LIST changes: +ACHYD1T PO; -HYDR-3820 PO
[2020-03-09 08:30] LABS: BILIRUBIN,URINE NEGATIVE (NEGATIVE); CLARITY,URINE CLEAR; COLOR,URINE YELLOW; GLUCOSE, URINE (UA) NEGATIVE (NEGATIVE); KETONES,URINE NEGATIVE (NEGATIVE); LEUKOCYTE ESTERASE ,URINE NEGATIVE (NEGATIVE); NITRITE,URINE NEGATIVE (NEGATIVE); PROTEIN,URINE NEGATIVE (NEGATIVE)
[2020-03-09 08:32] LABS: WHITE BLOOD COUNT 9.8 10^3/uL (4.3-11.0)
[2020-03-09 09:04] LABS: CARBON DIOXIDE 20 MMOL/L (21-32); CHLORIDE 105 MMOL/L (98-107); CREATININE SERUM 0.76 MG/DL (0.60-1.30); POTASSIUM 3.5 MMOL/L (3.6-5.0); SODIUM 138 MMOL/L (135-145)
[2020-03-09 09:05] LABS: ALANINE AMINOTRANSFERASE 17 U/L (0-55); ALKALINE PHOSPHATASE 91 U/L (40-136); BILIRUBIN,TOTAL 0.4 MG/DL (0.1-1.0); BUN/CREATININE RATIO 13; CALCIUM 8.9 MG/DL (8.5-10.1); CHOLESTEROL 221 MG/DL (< 200); GFR ESTIMATED > 60; GLUCOSE 76 MG/DL (70-105); HDL CHOLESTEROL 49 MG/DL (40-60); TOTAL PROTEIN 6.9 GM/DL (6.4-8.2); TRIGLYCERIDES 172 MG/DL (<150); VLDL CHOLESTEROL 34 MG/DL (5-40)
== END ==
LOC: LAB 07:54
PROVIDERS: ATTEND Family Medicine
DX: E11.40 Type 2 diabetes mellitus with diabetic neuropathy, unspecified (principal)
CPT/HCPCS: 36415; 80053; 80061; 81002; 83036; 85027

== ENCOUNTER 2020-07-21 07:57 | Emergency (ER) | payer SELFPAY ==
[~2020-07-21] VITALS: Ht 160 cm; Wt 108.8 kg
[2020-07-21] MEDS ORDERED: DEXTROSE 50% 50 ML (IMS) SYR ONE (08:26)
[2020-07-21] MEDS ORDERED: diphenhydrAMINE 50 MG/ML INJ (BENADRYL) IVP ONE (08:30)
[2020-07-21] MEDS ORDERED: methylPREDNISolone 40 MG/ML (Solu-MEDROL) VIAL IV ONE (08:30)
[2020-07-21] MEDS ORDERED: EPINEPHrine INJECTION 1 MG/ML AMP IM ONE (08:30)
[2020-07-21] MEDS ORDERED: DEXTROSE 50% 50 ML (IMS) SYR IV ONE (08:30)
[2020-07-21] MEDS ORDERED: FAMOTIDINE 20MG/2ML IV (PEPCID) IVP ONE (08:30)
[2020-07-21 08:47] LABS: BASOPHILS # (AUTO) 0.1 10^3/uL (0.0-0.1); BASOPHILS % (AUTO) 1 % (0-10); EOSINOPHILS # (AUTO) 0.2 10^3/uL (0.0-0.3); EOSINOPHILS % (AUTO) 2 % (0-10); HEMATOCRIT 37 % (35-52); HEMOGLOBIN 12.7 g/dL (11.5-16.0); LYMPHOCYTES # (AUTO) 2.2 10^3/uL (1.0-4.0); LYMPHOCYTES % (AUTO) 22 % (12-44); MEAN CORPUSCULAR HEMOGLOBIN 31 pg (25-34); MEAN CORPUSCULAR HGB CONC 34 g/dL (32-36); MEAN CORPUSCULAR VOLUME 93 fL (80-99); MEAN PLATELET VOLUME 9.8 fL (9.0-12.2); MONOCYTES # (AUTO) 0.3 10^3/uL (0.0-1.0); MONOCYTES % (AUTO) 3 % (0-12); NEUTROPHILS # (AUTO) 7.2 10^3/uL (1.8-7.8); NEUTROPHILS % (AUTO) 72 % (42-75); PLATELET COUNT 259 10^3/uL (130-400)
[2020-07-21 08:51] LABS: ALBUMIN 3.5 GM/DL (3.2-4.5); POTASSIUM 3.2 MMOL/L (3.6-5.0)
[2020-07-21 08:53] LABS: CALCIUM 8.5 MG/DL (8.5-10.1)
[2020-07-21 08:54] LABS: TOTAL PROTEIN 6.4 GM/DL (6.4-8.2)
[2020-07-21 08:56] LABS: BILIRUBIN,TOTAL 0.7 MG/DL (0.1-1.0)
[2020-07-21 08:57] LABS: CREATININE SERUM 1.15 MG/DL (0.60-1.30)
[2020-07-21] MEDS ORDERED: fentaNYL INJECTION 100 MCG/2 ML AMP IVP ONE (09:00)
[2020-07-21] MEDS ORDERED: KETOROLAC 30 MG/ML VIAL IVP ONE (11:00)
--- NOTE | 2020-07-21 12:21 | ED General ---
General Chief Complaint: General Problems/Pain Stated Complaint: LOW BLOOD SUGAR, TONGUE SWELLING Nursing Triage Note: PT REPORTS HER TONGUE STARTED SWELLING AROUND 0300. PT HAVING HARD TIME SWALLOWING AND HAVING A HARDER TIME TAKING BREATHS. PT REPORTS HEADACHE BEHIND HER EYES LIKE SHE HAS NEVER HAD BEFORE. LOW BLOOD SUGAR NOTED BY PT AND EMS. Nursing Sepsis Screen: No Definite Risk Source of Information: Patient Exam Limitations: No Limitations History of Present Illness Date Seen by Provider: Jul 21, 2020 Time Seen by Provider: 08:20 Initial Comments This 60-year-old woman presents to the emergency room via EMS with hypoglycemia and symptoms of angioedema, primarily swelling of the tongue. She has some mild shortness of breath associated with this as well as a headache. Oral glucose w as administered for blood sugar of 59 by EMS. Patient takes lisinopril but she has no prior history of angioedema. Vital signs are stable. Symptoms started this morning around 03:00. She states her thought her face was swollen as well. Allergies and Home Medications Allergies Coded Allergies: tetracycline (Verified Allergy, Intermediate, 01/16/15) Penicillins (Verified Allergy, Unknown, 01/16/15) cefaclor (Verified Allergy, Unknown, 01/16/15) lisinopril (Verified Allergy, Unknown, Angioedema, 07/21/20) sulfamethoxazole (Verified Allergy, Unknown, 01/16/15) trimethoprim (Verified Allergy, Unknown, 01/16/15) cyclobenzaprine HCl (Verified Adverse Reaction, Unknown, 01/16/15) causes pt to be very agitated Home Medications Aspirin 81 Mg Tab.chew, 81 MG PO DAILY, (Reported) Insulin Detemir 100 Unit/1 Ml Insuln.pen, 48 UNITS SQ BID, (Reported) Lisinopril 20 Mg Tablet, 40 MG PO DAILY, (Reported) Nitrofurantoin Monohyd/M-Cryst 100 Mg Capsule, 1 TAB PO BID Prescribed by: SEBASTIAN MARIE on 05/21/181810 Tramadol Hcl 50 Mg Tab, 100 MG PO TID, (Reported) TAKES 2 (50 MG) TABLETS Patient Home Medication List Home Medication List Reviewed: Yes Review of Systems Review of Systems Constitutional: see HPI EENTM: see HPI Respiratory: no symptoms reported Cardiovascular: no symptoms reported Gastrointestinal: no symptoms reported Genitourinary: no symptoms reported : No Musculoskeletal: no symptoms reported Skin: no symptoms reported Psychiatric/Neurological: See HPI Hematologic/Lymphatic: See HPI Immunological/Allergic: no symptoms reported Past Naxldjp-Ypxnhl-Sxcziz Hx Past Med/Social Hx: Reviewed Nursing Past Med/Soc Hx Patient Social History Alcohol Use: Occasionally Uses Smoking Status: Current Everyday Smoker Type Used: Cigarettes Recent Infectious Disease Expo: No Recent Hopitalizations: No Immunizations Up To Date Tetanus Booster (TDap): Unknown PED Vaccines UTD: Yes Seasonal Allergies Seasonal Allergies: No Past Medical History Surgeries: Yes (EGD/COLONOSCOPY, UMBILICAL HERNIA, CARPAL TUNNEL, heart cath-no stent) Abdominal, Section, Gallbladder, Orthopedic Respiratory: No Cardiac: Yes High Cholesterol, Hypertension Neurological: Yes Neuropathy 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 Genitourinary: No Kidney Stones, UTI-Chronic Gastrointestinal: Yes (CHRONIC ABDOMINAL PAIN) Gastroesophageal Reflux, Gastrointestinal Bleed, Pancreatitis, Ulcer Musculoskeletal: Yes (CHRONIC GENERALIZED PAIN, FREQUENT FALLS) Degenerate Disk Disease, Arthritis, Chronic Back Pain Endocrine: Yes Diabetes, Insulin dep HEENT: No Cancer: No Psychosocial: Yes Depression Integumentary: Yes (DIABETIC FOOT ULCERS/CELLULITIS) Blood Disorders: No Adverse Reaction/Blood Tranf: No Family Medical History Cardiovascular disease 19 FATHER Colon cancer 19 FATHER Gastroenteritis Kidney disease G8 SISTER (kidney cancer) Neoplasm G8 SISTER (ovarian cancer) No Pertinent Family Hx Physical Exam Vital Signs Vital Signs - First Documented 07/21/20 08:16 Temp 35.3 Pulse 87 Resp 16 B/P (MAP) 100/55 (70) Pulse Ox 99 O2 Delivery Room Air Capillary Refill : Less Than 3 Seconds Height, Weight, BMI Height: 5'2.00" Weight: 250lbs. 0.0oz. 113.290418ya; 42.00 BMI Method:Stated General Appearance: No Apparent Distress, WD/WN HEENT: PERRL/EOMI, Pharynx Normal, Other (Tongue was asymmetrically swollen. Lips and pharynx appeared normal. Patient was able to swallow and had a patent airway. There was perhaps some mild facial swelling.) Neck: Normal Inspection Respiratory: Lungs Clear, Normal Breath Sounds, No Accessory Muscle Use, No Respiratory Distress Cardiovascular: Regular Rate, Rhythm, No Edema, No Murmur Gastrointestinal: Normal Bowel Sounds, Non Tender, Soft Extremity: Normal Inspection, No Pedal Edema Neurologic/Psychiatric: Alert, Oriented x3, No Motor/Sensory Deficits, Normal Mood/Affect, lamp replacer II-XII Norm as Tested Skin: Normal Color, Warm/Dry Progress/Results/Core Measures Suspected Sepsis Recent Fever Within 48 Hours: No Infection Criteria Present: None New/Unexplained Altered Menta: No Sepsis Screen: No Definite Risk SIRS Temperature: Pulse: 87 Respiratory Rate: 16 Laboratory Tests 07/21/20 08:27: White Blood Count 10.0 Blood Pressure 100 /55 Mean: 70 Laboratory Tests 07/21/20 08:27: Creatinine 1.15, Platelet Count 259, Total Bilirubin 0.7 Results/Orders Lab Results Laboratory Tests Test 07/21/20 08:20 07/21/20 08:27 07/21/20 09:03 07/21/20 11:14 Range/Units Glucometer 77 152 H 139 H 70-110 MG/DL White Blood Count 10.0 4.3-11.0 10^3/uL Red Blood Count 4.04 3.80-5.11 10^6/uL Hemoglobin 12.7 11.5-16.0 g/dL Hematocrit 37 35-52 % Mean Corpuscular Volume 93 80-99 fL Mean Corpuscular Hemoglobin 31 25-34 pg Mean Corpuscular Hemoglobin Concent 34 32-36 g/dL Red Cell Distribution Width 14.7 H 10.0-14.5 % Platelet Count 259 130-400 10^3/uL Mean Platelet Volume 9.8 9.0-12.2 fL Immature Granulocyte % (Auto) 0 % Neutrophils (%) (Auto) 72 42-75 % Lymphocytes (%) (Auto) 22 12-44 % Monocytes (%) (Auto) 3 0-12 % Eosinophils (%) (Auto) 2 0-10 % Basophils (%) (Auto) 1 0-10 % Neutrophils # (Auto) 7.2 1.8-7.8 10^3/uL Lymphocytes # (Auto) 2.2 1.0-4.0 10^3/uL Monocytes # (Auto) 0.3 0.0-1.0 10^3/uL Eosinophils # (Auto) 0.2 0.0-0.3 10^3/uL Basophils # (Auto) 0.1 0.0-0.1 10^3/uL Immature Granulocyte # (Auto) 0.0 0.0-0.1 10^3/uL Sodium Level 133 L 135-145 MMOL/L Potassium Level 3.2 L 3.6-5.0 MMOL/L Chloride Level 100 98-107 MMOL/L Carbon Dioxide Level 20 L 21-32 MMOL/L Anion Gap 13 5-14 MMOL/L Blood Urea Nitrogen 18 7-18 MG/DL Creatinine 1.15 0.60-1.30 MG/DL Estimat Glomerular Filtration Rate 48 BUN/Creatinine Ratio 16 Glucose Level 73 70-105 MG/DL Calcium Level 8.5 8.5-10.1 MG/DL Corrected Calcium 8.9 8.5-10.1 MG/DL Total Bilirubin 0.7 0.1-1.0 MG/DL Aspartate Amino Transf (AST/SGOT) 23 5-34 U/L Alanine Aminotransferase (ALT/SGPT) 14 0-55 U/L Alkaline Phosphatase 123 40-136 U/L Total Protein 6.4 6.4-8.2 GM/DL Albumin 3.5 3.2-4.5 GM/DL My Orders Orders - GUSTAVO REY MD D50w (Emergency) Syringe (Dextrose 50% 5 (07/21/20 08:30) Epinephrine 1 Mg Injection (Adrenalin I (07/21/20 08:30) Diphenhydramine Injection (Benadryl Inje (07/21/20 08:30) Famotidine Injection (Pepcid Injection) (07/21/20 08:30) Methylprednisolone Sod Succ (Solu-Medrol (07/21/20 08:30) D50w (Emergency) Syringe (Dextrose 50% 5 (07/21/20 08:26) Cbc With Automated Diff (07/21/20 08:40) Comprehensive Metabolic Panel (07/21/20 08:40) Accucheck Stat ONCE (07/21/20 08:40) Accucheck Stat ONCE (07/21/20 08:40) Accucheck Stat ONCE (07/21/20 08:40) Fentanyl Injection (Sublimaze Injection (07/21/20 09:00) Ketorolac Injection (Toradol Injection) (07/21/20 11:00) Medications Given in ED Vital Signs/I&O Capillary Refill : Less Than 3 Seconds Blood Pressure Mean: 70 Point of Care Testing Finger Stick Blood Glucose: 77 Progress Note : Progress Note Patient was treated with IM epinephrine as well as Benadryl, Pepcid, and Solu- Medrol. She was monitored for several hours and had gradual improvement. There is no rebound of symptoms. She was given an amp of D50 which corrected her hyperglycemia. Lisinopril is the suspected cause of angioedema. She was instructed not to take ELBA inhibitors in the future. Lisinopril was added to her hospital allergy list. Departure Impression Primary Impression: Angioedema Qualified Codes: T78.3XXA - Angioneurotic edema, initial encounter Additional Impression: Hypoglycemia Disposition: HOME, SELF-CARE Condition: Improved Departure-Patient Inst. Decision time for Depature: 12:20 Referrals: NO,LOCAL PHYSICIAN (PCP/Family) Primary Care Physician Patient Instructions: Angioedema (DC) Add. Discharge Instructions: Do not ever take any medications in the ELBA inhibitor family, which includes all blood pressure medications ending with "-pril". Keep Benadryl on hand at home and take 50 mg of Benadryl and return to the emergency room immediately if symptoms return. Follow-up with your primary care provider soon as possible. Call today for an appointment. Monitor your blood sugars closely over the next 24 hours, at least every 4 hours for the next 24 hours. Call with questions or concerns. All discharge instructions reviewed with patient and/or family. Voiced understanding. GUSTAVO REY MD Jul 21, 2020 12:21
[2020-07-21 12:44] VITALS: BP 149/80
== END 2020-07-21 12:44 | disposition home or self-care (01) ==
LOC: EDUNIT# 07:57 → ER 07:58
DX: T78.3XXA Angioneurotic edema, initial encounter (principal); E11.649 Type 2 diabetes mellitus with hypoglycemia without coma; I10 Essential (primary) hypertension; F17.210 Nicotine dependence, cigarettes, uncomplicated; Z88.0 Allergy status to penicillin; Z88.1 Allergy status to other antibiotic agents; Z88.2 Allergy status to sulfonamides; Z88.8 Allergy status to other drugs, medicaments and biological substances; Z82.49 Family history of ischemic heart disease and other diseases of the circulatory system; Z80.0 Family history of malignant neoplasm of digestive organs; Z80.41 Family history of malignant neoplasm of ovary; Z79.82 Long term (current) use of aspirin; Z79.4 Long term (current) use of insulin
CPT/HCPCS: 36415; 80053; 82962; 85025

== ENCOUNTER 2020-07-26 15:02 | Emergency (ER) | payer SELFPAY ==
[~2020-07-26] VITALS: Ht 160 cm; Wt 74.4 kg
[2020-07-26 15:57] LABS: BILIRUBIN,URINE 1+ (NEGATIVE); CLARITY,URINE SL CLOUDY; COLOR,URINE YELLOW; GLUCOSE, URINE (UA) NEGATIVE (NEGATIVE); KETONES,URINE TRACE (NEGATIVE); LEUKOCYTE ESTERASE ,URINE NEGATIVE (NEGATIVE); NITRITE,URINE NEGATIVE (NEGATIVE); PROTEIN,URINE 1+ (NEGATIVE)
[2020-07-26 16:05] LABS: BACTERIA,URINE LARGE /HPF; SQUAMOUS EPITHELIAL CELL,UR TNTC /HPF
[2020-07-26] MEDS ORDERED: fentaNYL INJECTION 100 MCG/2 ML AMP IVP ONE ×2 (16:15→17:30)
[2020-07-26] MEDS ORDERED: KETOROLAC 15 MG/ML VIAL IVP ONE (16:15)
--- NOTE | 2020-07-26 16:26 | ED Back Pain ---
General Chief Complaint: Back Problems Stated Complaint: L SIDED PAIN, BACK PAIN Nursing Triage Note: Pt arrived by private vehicle with chief complaint of flank pain. Pt stated onset was a few nights ago in the middle of the night. Pt stated the pain is locatlized on the left side of the the back (flank) then radiates around side the left side of abdomen. Pt stated she has taken tramadol and ibuprofen for pain. Pt stated when it is at its worse the pain is a 10, but currently it is an 8. Pt stated the pain comes and goes. When asking about kidney stones, pt stated she has had a small one previously. Pt is alert, oriented x 4 and ambulatory. Nursing Sepsis Screen: No Definite Risk Source of Information: Patient Exam Limitations: No Limitations History of Present Illness Date Seen by Provider: Jul 26, 2020 Time Seen by Provider: 15:39 Initial Comments This is a well-appearing 60-year-old female who presented to the ER via POV with complaint of left flank pain. States pain has been ongoing for the last couple days. Has taken her home Tramadol and Ibupfrofen with no relief. States pain is the same as when she had a prior kidney stone. Describes as sharp, intermittent, and localized to her left flank. Currently rates pain 8/10 but is 10/10 at its worst. Denies fevers, chills, cough, shortness of breath, nausea, vomiting, diarrhea or difficult urinating. Allergies and Home Medications Allergies Coded Allergies: tetracycline (Verified Allergy, Intermediate, 01/16/15) Penicillins (Verified Allergy, Unknown, 01/16/15) cefaclor (Verified Allergy, Unknown, 01/16/15) lisinopril (Verified Allergy, Unknown, Angioedema, 07/21/20) sulfamethoxazole (Verified Allergy, Unknown, 01/16/15) trimethoprim (Verified Allergy, Unknown, 01/16/15) cyclobenzaprine HCl (Verified Adverse Reaction, Unknown, 01/16/15) causes pt to be very agitated Home Medications Aspirin 81 Mg Tab.chew, 81 MG PO DAILY, (Reported) Hydrocodone/Acetaminophen 1 Each Tablet, 1 TAB PO Q6H PRN for PAIN-MODERATE (5- 7) Prescribed by: YENNIFER ESTRADA on 07/26/20 9870 Insulin Detemir 100 Unit/1 Ml Insuln.pen, 48 UNITS SQ BID, (Reported) Lisinopril 20 Mg Tablet, 40 MG PO DAILY, (Reported) Nitrofurantoin Monohyd/M-Cryst 100 Mg Capsule, 1 TAB PO BID Prescribed by: SEBASTIAN MARIE on 05/21/181810 Tramadol Hcl 50 Mg Tab, 100 MG PO TID, (Reported) TAKES 2 (50 MG) TABLETS Patient Home Medication List Home Medication List Reviewed: Yes Review of Systems Constitutional: no symptoms reported EENTM: no symptoms reported Respiratory: no symptoms reported Cardiovascular: no symptoms reported Gastrointestinal: see HPI Genitourinary: see HPI Musculoskeletal: see HPI Skin: no symptoms reported Psychiatric/Neurological: No Symptoms Reported All Other Systems Reviewed Negative Unless Noted: No Past Ifyrbtu-Hqtccg-Sbaeyu Hx Patient Social History Alcohol Use: Denies Use Type Used: Cigarettes Recent Infectious Disease Expo: No Recent Hopitalizations: No Immunizations Up To Date Tetanus Booster (TDap): Unknown PED Vaccines UTD: Yes Seasonal Allergies Seasonal Allergies: No Past Medical History Surgeries: Yes (EGD/COLONOSCOPY, UMBILICAL HERNIA, CARPAL TUNNEL, heart cath-no stent) Abdominal, Section, Gallbladder, Orthopedic Respiratory: No Cardiac: Yes High Cholesterol, Hypertension Neurological: Yes Neuropathy 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 Genitourinary: No Kidney Stones, UTI-Chronic Gastrointestinal: Yes (CHRONIC ABDOMINAL PAIN) Gastroesophageal Reflux, Gastrointestinal Bleed, Pancreatitis, Ulcer Musculoskeletal: Yes (CHRONIC GENERALIZED PAIN, FREQUENT FALLS) Degenerate Disk Disease, Arthritis, Chronic Back Pain Endocrine: Yes Diabetes, Insulin dep HEENT: No Cancer: No Psychosocial: Yes Depression Integumentary: Yes (DIABETIC FOOT ULCERS/CELLULITIS) Blood Disorders: No Adverse Reaction/Blood Tranf: No Family Medical History Cardiovascular disease 19 FATHER Colon cancer 19 FATHER Gastroenteritis Kidney disease G8 SISTER (kidney cancer) Neoplasm G8 SISTER (ovarian cancer) No Pertinent Family Hx Physical Exam Vital Signs Vital Signs - First Documented 07/26/20 15:15 Temp 36.7 Pulse 77 Resp 20 B/P (MAP) 164/85 (111) Pulse Ox 96 O2 Delivery Room Air Capillary Refill : Less Than 3 Seconds Height, Weight, BMI Height: 5'2.00" Weight: 250lbs. 0.0oz. 113.553810fx; 29.00 BMI Method:Stated General Appearance: No Apparent Distress, WD/WN HEENT: PERRL/EOMI, Normal ENT Inspection Neck: Full Range of Motion, Normal Inspection Cardiovascular: Regular Rate, Rhythm, No Gallop, No Murmur, Normal Peripheral Pulses Respiratory: Lungs Clear, Normal Breath Sounds, No Accessory Muscle Use Gastrointestinal: Normal Bowel Sounds, Soft, Other (left flank tenderness with palpation. ) Back: Normal Inspection, No Vertebral Tenderness, CVA Tenderness (L) Extremity: Normal Capillary Refill, Normal Inspection, Normal Range of Motion Neurologic/Psychiatric: Alert, Oriented x3, No Motor/Sensory Deficits, Normal Mood/Affect Skin: Normal Color, Warm/Dry Progress/Results/Core Measures Results/Orders Lab Results Laboratory Tests Test 07/26/20 15:20 Range/Units Urine Color YELLOW Urine Clarity SL CLOUDY Urine pH 6.0 5-9 Urine Specific [place] >=1.030 1.016-1.022 Urine Protein 1+ H NEGATIVE Urine Glucose (UA) NEGATIVE NEGATIVE Urine Ketones TRACE H NEGATIVE Urine Nitrite NEGATIVE NEGATIVE Urine Bilirubin 1+ H NEGATIVE Urine Urobilinogen 2.0 < = 1.0 MG/DL Urine Leukocyte Esterase NEGATIVE NEGATIVE Urine RBC (Auto) NEGATIVE NEGATIVE Urine RBC NONE /HPF Urine WBC NONE /HPF Urine Squamous Epithelial Cells TNTC H /HPF Urine Crystals NONE /LPF Urine Bacteria LARGE H /HPF Urine Casts NONE /LPF Urine Mucus NEGATIVE /LPF Urine Culture Indicated NO My Orders Orders - YENNIFER ESTRADA BOILERMAKER'S ASSISTANT Ct Abd/Pelvis Wo(Kidney Stone) (07/26/20 16:15) Abdomen/Kub 1view (07/26/20 16:15) Ed Iv/Invasive Line Start (07/26/20 16:15) Ketorolac Injection (Toradol Injection) (07/26/20 16:15) Fentanyl Injection (Sublimaze Injection (07/26/20 16:15) Ketorolac Injection (Toradol Injection) (07/26/20 16:29) Fentanyl Injection (Sublimaze Injection (07/26/20 17:30) Medications Given in ED Current Medications Medications Dose Ordered Sig/Eva Route Start Time Stop Time Status Last Admin Dose Admin Fentanyl Citrate 50 mcg ONCE ONCE IVP 07/26/20 16:15 07/26/20 16:18 DC 07/26/20 16:36 50 MCG Fentanyl Citrate 50 mcg ONCE ONCE IVP 07/26/20 17:30 07/26/20 17:31 DC 07/26/20 17:35 50 MCG Ketorolac Tromethamine 15 mg ONCE ONCE IVP 07/26/20 16:15 07/26/20 16:18 DC 07/26/20 16:36 15 MG Vital Signs/I&O 07/26/20 07/26/20 15:15 17:43 Temp 36.7 Pulse 77 106 Resp 20 18 B/P (MAP) 164/85 (111) 126/81 Pulse Ox 96 97 O2 Delivery Room Air Room Air Blood Pressure Mean: 111 Progress Progress Note : Progress Note Pt examined and in no acute distress. Orders given for pain management and kidney stone workup. UA neg for blood. KUB neg. CT abd/pelvis shows small non obstructing right-sided renal stones without ureteral stones. Reviewed findings and discharge plan, she is agreeable with plan. No questions at this time. Diagnostic Imaging Diagonstic Imaging: Xray Plain Films/CT/US/NM/MRI: abdomen Comments NAME: VIOLA QUINTERO [facility] REC#: [id number] PT STATUS: REG ER : 1960 PHYSICIAN: YENNIFER ESTRADA BOILERMAKER'S ASSISTANT ADMIT DATE: 07/26/20/ER Draft Date of Exam:07/26/20 ABDOMEN/KUB 1VIEW INDICATION: Flank and abdominal pain. COMPARISON: 03/04/2019. FINDINGS: Two views of the abdomen demonstrate cholecystectomy clips in the right upper quadrant. The bowel gas pattern is unremarkable. There is no significant constipation. No obvious renal calculi are seen. The osseous structures are stable. IMPRESSION: Negative KUB. Dictated on workstation # [id number] Dict: 07/26/20 1700 Trans: 07/26/20 1706 [id number] Interpreted by: GABE JAQUEZ Electronically signed by: Reviewed: Reviewed by Me Diagonstic Imaging: CT Plain Films/CT/US/NM/MRI: abdomen, pelvis Comments NAME: IVOLA QUINTERO [place] REC#: [id number] PT STATUS: REG ER : 1960 PHYSICIAN: YENNIFER ESTRADA BOILERMAKER'S ASSISTANT ADMIT DATE: 07/26/20/ER Signed Date of Exam:07/26/20 CT ABD/PELVIS WO(KIDNEY STONE) EXAMINATION: CT Abdomen Pelvis without contrast. TECHNIQUE: Multiple contiguous axial images were obtained through the abdomen and pelvis without the use of intravenous contrast. All CT scans use one or more of the following dose optimizing techniques: automated exposure control, MA and/or KvP adjustment based on a patient size and exam type, or iterative reconstruction. HISTORY: Flank pain. COMPARISON: 01/13/2016. FINDINGS: Limited views of the lower thorax are unremarkable. Liver is severely steatotic and heterogeneous. There is no biliary ductal dilation. Gallbladder is absent. Pancreas is normal. Spleen is normal. Adrenal glands are normal. There are right-sided nonobstructing renal stones measuring up to 2 mm. No ureteral stones are seen. There is no hydronephrosis. Urinary bladder is normal. There is a fat-containing umbilical hernia. Visualized bowel is normal in caliber without obstruction or inflammation. There is diverticulosis without diverticulitis. No free fluid or air. No abdominal or pelvic lymphadenopathy. Aorta is normal in caliber without aneurysm. There are no suspicious osseous lesions. IMPRESSION: 1. Small nonobstructing right-sided renal stones without ureteral stones. 2. Markedly steatotic liver with nodular surface contour, concerning for cirrhosis. The texture is heterogeneous as well. Liver protocol MRI is recommended for further evaluation and to exclude underlying hepatocellular carcinoma. Dictated by: Dictated on workstation # [id number] Dict: 07/26/206 Trans: 07/26/201718 AS6 [id number] Interpreted by: ANDREZ JEWELL MD Electronically signed by: ANDREZ JEWELL MD 07/26/209 Reviewed: Reviewed by Me Departure Impression Primary Impression: Kidney stone on right side Disposition: 01 HOME, SELF-CARE Condition: Improved Departure-Patient Inst. Decision time for Depature: 17:12 Referrals: NO,LOCAL PHYSICIAN (PCP/Family) Primary Care Physician Patient Instructions: Kidney Stones (DC) Add. Discharge Instructions: Plan: 1. Discharge home. Drink plenty of fluids. 2. May take Tylenol or Ibuprofen as needed for pain per package instructions. Use Lortab for breakthrough pain. 3. Follow up with your primary care provider if your symptoms persist. 4. Return for any new or concerning symptoms. All discharge instructions reviewed with patient and/or family. Voiced understanding. Scripts Hydrocodone/Acetaminophen (Hydrocodone-Acetamin 5-325 mg) 1 Each Tablet 1 TAB PO Q6H PRN for PAIN-MODERATE (5-7), #10 TAB 0 Refills Prov: YENNIFER ESTRADA APRN 07/26/20 YENNIFER ESTRADA APRN Jul 26, 2020 16:26
[2020-07-26] MEDS ORDERED: KETOROLAC 30 MG/ML VIAL ONE (16:29)
--- NOTE | 2020-07-26 17:06 | Diagnostic Imaging Report ---
EXAMINATION: CT Abdomen Pelvis without contrast. TECHNIQUE: Multiple contiguous axial images were obtained through the abdomen and pelvis without the use of intravenous contrast. All CT scans use one or more of the following dose optimizing techniques: automated exposure control, MA and/or KvP adjustment based on a patient size and exam type, or iterative reconstruction. HISTORY: Flank pain. COMPARISON: 01/13/2016. FINDINGS: Limited views of the lower thorax are unremarkable. Liver is severely steatotic and heterogeneous. There is no biliary ductal dilation. Gallbladder is absent. Pancreas is normal. Spleen is normal. Adrenal glands are normal. There are right-sided nonobstructing renal stones measuring up to 2 mm. No ureteral stones are seen. There is no hydronephrosis. Urinary bladder is normal. There is a fat-containing umbilical hernia. Visualized bowel is normal in caliber without obstruction or inflammation. There is diverticulosis without diverticulitis. No free fluid or air. No abdominal or pelvic lymphadenopathy. Aorta is normal in caliber without aneurysm. There are no suspicious osseous lesions. IMPRESSION: 1. Small nonobstructing right-sided renal stones without ureteral stones. 2. Markedly steatotic liver with nodular surface contour, concerning for cirrhosis. The texture is heterogeneous as well. Liver protocol MRI is recommended for further evaluation and to exclude underlying hepatocellular carcinoma. Dictated by: Dictated on workstation # [id number]
--- NOTE | 2020-07-26 17:07 | Diagnostic Imaging Report ---
INDICATION: Flank and abdominal pain. COMPARISON: 03/04/2019. FINDINGS: Two views of the abdomen demonstrate cholecystectomy clips in the right upper quadrant. The bowel gas pattern is unremarkable. There is no significant constipation. No obvious renal calculi are seen. The osseous structures are stable. IMPRESSION: Negative KUB. Dictated by: Dictated on workstation # [id number]
[2020-07-26] MEDS ORDERED: ACHD5005 PO (17:14)
[2020-07-26 17:43] VITALS: BP 126/81
== END 2020-07-26 17:43 | disposition home or self-care (01) ==
LOC: EDUNIT# 15:02 → ER 15:04
DX: N20.0 Calculus of kidney (principal); I10 Essential (primary) hypertension; G89.29 Other chronic pain; M54.9 Dorsalgia, unspecified; E11.9 Type 2 diabetes mellitus without complications; Z88.0 Allergy status to penicillin; Z88.1 Allergy status to other antibiotic agents; Z88.2 Allergy status to sulfonamides; Z88.8 Allergy status to other drugs, medicaments and biological substances; Z82.49 Family history of ischemic heart disease and other diseases of the circulatory system; Z80.0 Family history of malignant neoplasm of digestive organs; Z80.41 Family history of malignant neoplasm of ovary; Z95.9 Presence of cardiac and vascular implant and graft, unspecified; Z79.82 Long term (current) use of aspirin; Z79.891 Long term (current) use of opiate analgesic; Z79.4 Long term (current) use of insulin
CPT/HCPCS: 74018; 74176; 81000

== ENCOUNTER 2022-03-19 11:03 | Emergency (ER) | payer SELFPAY ==
[~2022-03-19] VITALS: Ht 160 cm; Wt 103.9 kg
[~2022-03-19 11:03] MED LIST changes: +LEVO750T PO; -LEVO750T39 PO
--- NOTE | 2022-03-19 11:15 | ED Chest Pain ---
General Chief Complaint: Chest Pain Stated Complaint: CHEST PAIN Source: patient Exam Limitations: no limitations (GUIDO LOGAN APRN) History of Present Illness Date Seen by Provider: Mar 19, 2022 Time Seen by Provider: 11:15 Initial Comments 61 y/o female presents today with c/o left sided chest pain that radiates into neck, between shoulder blades, and down the left arm. Symptoms started last night at 1900, worse today. She took ibuprofen this morning with no relief. Pain is accompanied by nausea. She denies dizziness, lightheadedness, vision changes, numbness, tingling, SOA, cough, abdominal pain, vomiting, weakness, palpitations. Timing/Duration: 12-24 hours Severity/Quality: moderate, pressure Location: shoulder, other (left side) Radiation: arms (left arm), shoulders Prior CP/Workup: cardiac cath Modifying Factors: worse with movement ASA po TRIP RIDER: No Associated Symptoms: back pain, nausea/vomiting (GUIDO LOGAN APRN) Allergies and Home Medications Allergies Coded Allergies: tetracycline (Verified Allergy, Intermediate, 01/16/15) Penicillins (Verified Allergy, Unknown, 01/16/15) cefaclor (Verified Allergy, Unknown, 01/16/15) lisinopril (Verified Allergy, Unknown, Angioedema, 07/21/20) sulfamethoxazole (Verified Allergy, Unknown, 01/16/15) trimethoprim (Verified Allergy, Unknown, 01/16/15) cyclobenzaprine HCl (Verified Adverse Reaction, Unknown, 01/16/15) causes pt to be very agitated Patient Home Medication List Home Medication List Reviewed: Yes (GUIDO LOGAN APRN) Aspirin (Aspirin) 81 Mg Tab.chew, 81 MG PO DAILY, (Reported) Entered as Reported by: MARY ARIAS on 11/17/16 1134 Hydrocodone/Acetaminophen (Hydrocodone-Acetamin 5-325 mg) 1 Each Tablet, 1 TAB PO Q6H PRN for PAIN-MODERATE (5-7) Prescribed by: YENNIFER ESTRADA on 07/26/20 1714 Insulin Detemir (Levemir Flextouch) 100 Unit/1 Ml Insuln.pen, 48 UNITS SQ BID, (Reported) Entered as Reported by: CHAI HILARIO on 11/17/16 1617 Lisinopril (Lisinopril) 20 Mg Tablet, 40 MG PO DAILY, (Reported) Entered as Reported by: DON GOYAL on 03/19/10 1835 Nitrofurantoin Monohyd/M-Cryst (Macrobid 100 mg Capsule) 100 Mg Capsule, 1 TAB PO BID Prescribed by: SEBASTIAN MARIE on 05/21/18 1811 Tramadol Hcl (Ultram) 50 Mg Tab, 100 MG PO TID, (Reported) Entered as Reported by: CASIE HUNT on 07/22/10 2335 Review of Systems Review of Systems Constitutional: no symptoms reported; No diaphoresis, No dizziness, No fever, No malaise, No weakness EENTM: No Symptoms Reported; No Blurred Vision, No Double Vision Respiratory: No Symptoms Reported; Denies Cough Cardiovascular: Chest Pain; Denies Edema, Denies Palpitations, Denies Syncope Gastrointestinal: Denies Abdomen Distended, Denies Abdominal Pain, Denies Diarrhea; Nausea; Denies Poor Appetite, Denies Vomiting Genitourinary: No Symptoms Reported Musculoskeletal: back pain; No joint swelling, No muscle pain, No muscle stiffness Skin: no symptoms reported Psychiatric/Neurological: No Symptoms Reported; Denies Headache, Denies Numbness, Denies Paresthesia Endocrine: No Symptoms Reported Hematologic/Lymphatic: No Symptoms Reported (GUIDO LOGAN APRN) Past Hgdgdkl-Glmuoc-Owcsfk Hx Patient Social History Tobacco Use?: Yes Tobacco type used: Cigarettes Smoking Status: Current Everyday Smoker Substance use?: No Alcohol Use?: Yes (GUIDO LOGAN APRN) Immunizations Up To Date Tetanus Booster (TDap): Unknown PED Vaccines UTD: Yes First/Initial COVID19 Vaccinat: UNK Second COVID19 Vaccination [place]: UNK (GUIDO LOGAN APRN) Seasonal Allergies Seasonal Allergies: No (GUIDO LOGAN APRN) Past Medical History Surgery/Hospitalization HX: DM, NEUROPATHY Surgeries: Yes (EGD/COLONOSCOPY, UMBILICAL HERNIA, CARPAL TUNNEL, heart cath-no stent) Abdominal, Section, Gallbladder, Orthopedic Respiratory: No Cardiac: Yes High Cholesterol, Hypertension Neurological: Yes Neuropathy 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 Genitourinary: No Kidney Stones, UTI-Chronic Gastrointestinal: Yes (CHRONIC ABDOMINAL PAIN) Gastroesophageal Reflux, Gastrointestinal Bleed, Pancreatitis, Ulcer Musculoskeletal: Yes (CHRONIC GENERALIZED PAIN, FREQUENT FALLS) Degenerate Disk Disease, Arthritis, Chronic Back Pain Endocrine: Yes Diabetes, Insulin dep HEENT: No Cancer: No Psychosocial: Yes Depression Integumentary: Yes (DIABETIC FOOT ULCERS/CELLULITIS) Blood Disorders: No Adverse Reaction/Blood Tranf: No (GUIDO LOGAN APRN) Family Medical History Cardiovascular disease 19 FATHER Colon cancer 19 FATHER Gastroenteritis Kidney disease G8 SISTER (kidney cancer) Neoplasm G8 SISTER (ovarian cancer) No Pertinent Family Hx (GUIDO LOGAN APRN) Physical Exam Vital Signs Vital Signs - First Documented 03/19/22 11:03 Temp 36.4 Pulse 90 Resp 23 B/P (MAP) 153/110 (124) Pulse Ox 99 O2 Delivery Room Air (GUSTAVO HOFFMAN MD) Vital Signs Capillary Refill : Less Than 3 Seconds (GUIDO LOGAN APRN) Height, Weight, BMI Height: 5'2.00" Weight: 250lbs. 0.0oz. 113.971949me; 29.00 BMI Method:Stated General Appearance: No Apparent Distress, WD/WN HEENT: Normal ENT Inspection, Pharynx Normal Neck: Full Range of Motion, Normal Inspection, Non Tender, Supple Respiratory: Chest Non Tender, Lungs Clear, Normal Breath Sounds, No Accessory Muscle Use, No Respiratory Distress Cardiovascular: Regular Rate, Rhythm, No Murmur Gastrointestinal: Normal Bowel Sounds, No Organomegaly, Non Tender, Soft Extremity: Normal Capillary Refill, Normal Inspection, Normal Range of Motion, Non Tender, Pedal Edema Neurologic/Psychiatric: Alert, Oriented x3, No Motor/Sensory Deficits, Normal Mood/Affect Skin: Normal Color, Warm/Dry (GUIDO LOGAN APRN) Progress/Results/Core Measures Results/Orders Lab Results Laboratory Tests Test 03/19/22 11:08 03/19/22 12:16 Range/Units White Blood Count 9.4 4.3-11.0 10^3/uL Red Blood Count 3.99 3.80-5.11 10^6/uL Hemoglobin 13.9 11.5-16.0 g/dL Hematocrit 41 35-52 % Mean Corpuscular Volume 102 H 80-99 fL Mean Corpuscular Hemoglobin 35 H 25-34 pg Mean Corpuscular Hemoglobin Concent 34 32-36 g/dL Red Cell Distribution Width 16.0 H 10.0-14.5 % Platelet Count 221 130-400 10^3/uL Mean Platelet Volume 9.3 9.0-12.2 fL Immature Granulocyte % (Auto) 1 % Neutrophils (%) (Auto) 66 42-75 % Lymphocytes (%) (Auto) 25 12-44 % Monocytes (%) (Auto) 5 0-12 % Eosinophils (%) (Auto) 3 0-10 % Basophils (%) (Auto) 1 0-10 % Neutrophils # (Auto) 6.2 1.8-7.8 10^3/uL Lymphocytes # (Auto) 2.4 1.0-4.0 10^3/uL Monocytes # (Auto) 0.4 0.0-1.0 10^3/uL Eosinophils # (Auto) 0.3 0.0-0.3 10^3/uL Basophils # (Auto) 0.1 0.0-0.1 10^3/uL Immature Granulocyte # (Auto) 0.1 0.0-0.1 10^3/uL Prothrombin Time 12.4 12.2-14.7 SEC INR Comment 0.9 0.8-1.4 Activated Partial Thromboplast Time 34 24-35 SEC Sodium Level 139 135-145 MMOL/L Potassium Level 4.0 3.6-5.0 MMOL/L Chloride Level 107 98-107 MMOL/L Carbon Dioxide Level 21 21-32 MMOL/L Anion Gap 11 5-14 MMOL/L Blood Urea Nitrogen 14 7-18 MG/DL Creatinine 0.72 0.60-1.30 MG/DL Estimat Glomerular Filtration Rate 94 BUN/Creatinine Ratio 19 Glucose Level 94 70-105 MG/DL Calcium Level 8.4 L 8.5-10.1 MG/DL Corrected Calcium 8.6 8.5-10.1 MG/DL Total Bilirubin 0.5 0.1-1.0 MG/DL Aspartate Amino Transf (AST/SGOT) 32 5-34 U/L Alanine Aminotransferase (ALT/SGPT) 18 0-55 U/L Alkaline Phosphatase 97 40-136 U/L Troponin I < 0.028 <0.028 NG/ML B-Type Natriuretic Peptide 95.7 <100.0 PG/ML Total Protein 6.7 6.4-8.2 GM/DL Albumin 3.7 3.2-4.5 GM/DL Urine Color YELLOW Urine Clarity CLEAR Urine pH 5.5 5-9 Urine Specific [place] <=1.005 1.016-1.022 Urine Protein NEGATIVE NEGATIVE Urine Glucose (UA) NEGATIVE NEGATIVE Urine Ketones NEGATIVE NEGATIVE Urine Nitrite NEGATIVE NEGATIVE Urine Bilirubin NEGATIVE NEGATIVE Urine Urobilinogen 0.2 < = 1.0 MG/DL Urine Leukocyte Esterase NEGATIVE NEGATIVE Urine RBC (Auto) NEGATIVE NEGATIVE Urine RBC NONE /HPF Urine WBC NONE /HPF Urine Squamous Epithelial Cells 2-5 /HPF Urine Crystals NONE /LPF Urine Bacteria NEGATIVE /HPF Urine Casts NONE /LPF Urine Mucus NEGATIVE /LPF Urine Culture Indicated NO (GUSTAVO HOFFMAN MD) My Orders Orders - GUSTAVO HOFFMAN MD Ekg Tracing (03/19/22 11:06) (GUSTAVO HOFFMAN MD) Medications Given in ED Current Medications Medications Dose Ordered Sig/Eva Route Start Time Stop Time Status Last Admin Dose Admin Al Hydrox/Mg Hydrox/Simethicone 30 ml ONCE ONCE PO 03/19/22 12:45 03/19/22 12:46 DC 03/19/22 13:11 30 ML Aspirin 324 mg ONCE ONCE PO 03/19/22 11:30 03/19/22 11:31 DC 03/19/22 11:28 324 MG Lidocaine HCl 15 ml ONCE ONCE PO 03/19/22 12:45 03/19/22 12:46 DC 03/19/22 13:11 15 ML (GUSTAVO HOFFMAN MD) Vital Signs/I&O 03/19/22 03/19/22 11:03 13:20 Temp 36.4 Pulse 90 80 Resp 23 15 B/P (MAP) 153/110 (124) 143/83 Pulse Ox 99 96 O2 Delivery Room Air Room Air (GUSTAVO HOFFMAN MD) Progress Progress Note : Progress Note Labs WNL, EKG with no acute findings, vitals stable. Pt overall looks good. She was given analgesics and GI cocktail with improvement of symptoms. (GUIDO LOGAN APRN) Initial ECG Impression Date: Mar 19, 2022 Initial ECG Impression Time: 11:09 Initial ECG Rate: 85 Initial ECG Rhythm: Normal Sinus Initial ECG Intervals: Normal Initial ECG Impression: Normal Comment Reviewed by Dr Hoffman (GUIDO LOGAN APRN) Departure Impression Primary Impression: Chest pain Disposition: HOME, SELF-CARE Condition: Improved Departure-Patient Inst. Decision time for Depature: 13:00 (GUIDO LOGAN APRN) Referrals: NO,LOCAL PHYSICIAN (PCP/Family) Primary Care Physician Patient Instructions: Chest Pain (DC) Add. Discharge Instructions: Rest, avoid movements and activities that make pain worse. Follow up with your PCP this week for recheck. Follow up with any new/worsening concerns All discharge instructions reviewed with patient and/or family. Voiced understanding. ATTENDING PHYSICIAN NOTE: I was physically present as attending physician in the emergency department during the care of this patient, but I was not directly involved in the decision making or delivery of care for this patient. (GUSTAVO HOFFMAN MD) GUIDO LOGAN APRN Mar 19, 2022 11:15 GUSTAVO HOFFMAN MD Mar 19, 2022 19:35
[2022-03-19 11:30] LABS: BASOPHILS # (AUTO) 0.1 10^3/uL (0.0-0.1); BASOPHILS % (AUTO) 1 % (0-10); EOSINOPHILS # (AUTO) 0.3 10^3/uL (0.0-0.3); EOSINOPHILS % (AUTO) 3 % (0-10); HEMATOCRIT 41 % (35-52); HEMOGLOBIN 13.9 g/dL (11.5-16.0); LYMPHOCYTES # (AUTO) 2.4 10^3/uL (1.0-4.0); LYMPHOCYTES % (AUTO) 25 % (12-44); MEAN CORPUSCULAR HEMOGLOBIN 35 pg (25-34); MEAN CORPUSCULAR HGB CONC 34 g/dL (32-36); MEAN CORPUSCULAR VOLUME 102 fL (80-99); MEAN PLATELET VOLUME 9.3 fL (9.0-12.2); MONOCYTES # (AUTO) 0.4 10^3/uL (0.0-1.0); MONOCYTES % (AUTO) 5 % (0-12); NEUTROPHILS # (AUTO) 6.2 10^3/uL (1.8-7.8); NEUTROPHILS % (AUTO) 66 % (42-75); PLATELET COUNT 221 10^3/uL (130-400); WHITE BLOOD COUNT 9.4 10^3/uL (4.3-11.0)
[2022-03-19] MEDS ORDERED: ASPIRIN 81 MG CHEW (CHILDREN'S ASA) PO ONE (11:30)
[2022-03-19 11:34] LABS: ALBUMIN 3.7 GM/DL (3.2-4.5)
[2022-03-19 11:36] LABS: CALCIUM 8.4 MG/DL (8.5-10.1); INR 0.9 (0.8-1.4); PROTHROMBIN TIME PATIENT 12.4 SEC (12.2-14.7)
[2022-03-19 11:37] LABS: TOTAL PROTEIN 6.7 GM/DL (6.4-8.2)
[2022-03-19 11:39] LABS: BILIRUBIN,TOTAL 0.5 MG/DL (0.1-1.0)
[2022-03-19 11:41] LABS: CREATININE SERUM 0.72 MG/DL (0.60-1.30)
--- NOTE | 2022-03-19 12:07 | Diagnostic Imaging Report ---
EXAMINATION: Chest radiograph, portable AP view. DATE: 03/19/2022 11:49 AM. INDICATION: 61-year-old female, chest pain. COMPARISON: November 17, 2016. FINDINGS: The heart size and mediastinal contours are unchanged. There is no identified pneumothorax. There is no large pleural effusion. There is no identified focal airspace consolidation. IMPRESSION: No identified acute cardiopulmonary abnormality. Dictated by: Dictated on workstation # [id number]
[2022-03-19] MEDS ORDERED: morphine INJ 10 MG/ML 1ML (SYR OR VIAL) IVP STA ×2 (12:11→12:39)
[2022-03-19 12:34] LABS: BILIRUBIN,URINE NEGATIVE (NEGATIVE); CLARITY,URINE CLEAR; COLOR,URINE YELLOW; GLUCOSE, URINE (UA) NEGATIVE (NEGATIVE); KETONES,URINE NEGATIVE (NEGATIVE); LEUKOCYTE ESTERASE ,URINE NEGATIVE (NEGATIVE); NITRITE,URINE NEGATIVE (NEGATIVE); PH,URINE 5.5 (5-9); PROTEIN,URINE NEGATIVE (NEGATIVE)
[2022-03-19 12:40] LABS: BACTERIA,URINE NEGATIVE /HPF
[2022-03-19] MEDS ORDERED: LIDOCAINE 2% VISCOUS 15 ML UDC PO ONE (12:45)
[2022-03-19] MEDS ORDERED: ANTACID SUSP 30 ML UDC (MYLANTA) PO ONE (12:45)
[2022-03-19 13:20] VITALS: BP 143/83
== END 2022-03-19 13:20 | disposition home or self-care (01) ==
LOC: ER 11:03 → EDUNIT# 11:03 → ER 13:20
DX: R07.89 Other chest pain (principal); E11.40 Type 2 diabetes mellitus with diabetic neuropathy, unspecified; F17.210 Nicotine dependence, cigarettes, uncomplicated; Z98.61 Coronary angioplasty status; Z79.4 Long term (current) use of insulin
CPT/HCPCS: 36415; 71045; 80053; 81000; 83880; 84484; 85025; 85610; 85730; 93005